=== PATIENT | male | born 1980 ===

== ENCOUNTER 2024-10-06 10:15 | Outpatient (RCR) | payer MEDICAID, SELFPAY | END 2024-12-25 11:54 | disposition home or self-care (01) | LOC: HO.WCC 10:15 | PROVIDERS: PCP Nurse Practitioner Family; Visit Provider Surgery | DX: E10.621 Type 1 diabetes mellitus with foot ulcer (principal); L97.522 Non-pressure chronic ulcer of other part of left foot with fat layer exposed; I10 Essential (primary) hypertension; E10.40 Type 1 diabetes mellitus with diabetic neuropathy, unspecified; F17.210 Nicotine dependence, cigarettes, uncomplicated; Z79.4 Long term (current) use of insulin; Z79.899 Other long term (current) drug therapy | CPT/HCPCS: 11042; 99204 ==

== ENCOUNTER 2024-10-17 18:33 | Inpatient (IN) | payer MEDICAID, SELFPAY ==
--- NOTE | ~2024-10-17 | MR_ITS ---
CLINICAL HISTORY: ?dry gangrene L great toe Pt motion artifact present for post magan images. Pt unabl e to remain still for rpt images. Best images possible obtained. MRI left foot without and with intravenous contrast Comparison: None Findings: Marrow edema in the 1st distal phalanx with cortical irregularity of the tuft concerning for osteomyelitis. There is surrounding soft tissue edema. No abscess though evaluation is somewhat limited by motion on the postcontrast images. No acute fracture or dislocation. Tendons and ligaments are intact. Impression: Findings concerning for osteomyelitis of the 1st distal tuft. This document has been electronically signed by: Rosetta Greene MD on 10/18/2024 18:20:52
--- NOTE | ~2024-10-17 | US_ITS ---
CLINICAL HISTORY: nonhealing ulkcer --- Additional Notes or Special Instructions: Please do bilateral art US with limited CONRAD. If indicated Bilateral lower extremity arterial duplex ultrasound Comparison: None . Findings: Triphasic flow noted throughout the bilateral lower extremities. No significant plaque noted on cross-sectional images. There is no significant velocity alteration demonstrated. Impression: No significant velocity-altering stenosis. Ankle-brachial index Comparison: None Findings: Right brachial artery 115 mmHg Right posterior tibial artery 135 mmHg Right dorsalis pedis artery 119 mmHg Left brachial artery 135 mmHg Left posterior tibial artery 136 mmHg Left dorsalis pedis artery 136 mmHg Impression: 1. Right CONRAD 1.0 2. Left CONRAD 1.0 This document has been electronically signed by: Praveen Bridges MD on 10/22/2024 20:05:45
--- NOTE | ~2024-10-17 | CT_ITS ---
CLINICAL HISTORY: ABD PAIN, VOMITING CT abdomen and pelvis with contrast Comparison: None Findings: There is minimal dependent atelectasis. There is a tiny calcified granuloma in the left lower lobe. There is a mildly hypodense lesion in the right lobe of the liver measuring 2 cm. Liver is otherwise unremarkable. The gallbladder, pancreas, spleen, adrenal glands, and kidneys are unremarkable. The appendix is normal. The remainder of the gastrointestinal tract is unremarkable. There is no free fluid or free air. The aorta is normal in diameter. There are no enlarged lymph nodes. The bladder is mildly distended. There are mild degenerative changes in the lumbar spine. There is no fracture or suspicious lytic or sclerotic lesion. IMPRESSION: 1. No acute abnormality in the abdomen or pelvis. 2. Indeterminate 2 cm lesion in the right lobe of the liver. This could be best evaluated with multiphasic contrast-enhanced MRI. This document has been electronically signed by: Dirk Meneses MD on 10/18/2024 04:47:55
--- NOTE | ~2024-10-17 | XR_ITS ---
CLINICAL HISTORY: <OBR.31.1><OBR.31.1.1>PRE MRI CHEST XRAY TO R O FOREIGN BODYPlease check prior CT i mages done 10/18 of the head </OBR.31.1.1><OBR.31.1.2> abdomen/pelvis to clear for MRI as well please .</OBR.31.1.2></OBR.31.1> 1 view chest x-ray Comparison: None Findings: No consolidation or effusion. Normal size heart. No acute fracture. Other than spinal fusion hardware, no metallic foreign body. IMPRESSION: No concerning metallic foreign body. This document has been electronically signed by: Joshua Sim MD on 10/18/2024 12:14:35
--- NOTE | ~2024-10-17 | CT_ITS ---
CLINICAL HISTORY: ALTERED MENTAL STATUS CT head without contrast Comparison: None Findings: There is no acute intracranial hemorrhage. Ventricles are of normal size and shape. No mass effect or midline shift is present. The garcia-white matter differentiation appears normal. There is generalized cerebral atrophy atypical for patient's age. The visualized portions of the orbits, paranasal sinuses, and mastoids are unremarkable. No fractures are identified. There is a small benign partially calcified right posterolateral scalp nodule likely a sebaceous cyst. IMPRESSION: 1. No acute intracranial abnormality. 2. Cerebral atrophy atypical for patient's age. This document has been electronically signed by: Dirk Meneses MD on 10/18/2024 04:38:42
[2024-10-17 18:43] VITALS: BP 129/74; PULSE 88; RESP 16; O2SAT 98
[2024-10-17 18:45] VITALS: TEMP 37.1
[2024-10-17 18:46] VITALS: BP 146/95; PULSE 100; O2SAT 99; BMI 27.5
--- NOTE | 2024-10-17 19:11 | ED_ITS ---
HPI - General Adult General Chief complaint: Seizure Stated complaint: seizure, no injuires Time Seen by Provider: 10/17/24 19:11 History of Present Illness ED Provider: Jossue PERRY narrative: The patient is a 44-year-old male with a history of poorly controlled type 1 diabetes. He also has a history of a significant seizure disorder. He lives at home with his parents. Apparently he had 2 seizures today. Family noticed this afternoon that his blood sugar was over 400. They checked this after his 1st seizure. At around 5:15 PM the family administered 12 units of subcutaneous Humalog because of the elevated blood sugar. The patient is subsequently had a 2nd seizure and it was at that point that the family called an ambulance. The patient has a history of prolonged abnormal behavior following seizures. The mother says that the pill dispenser the patient uses suggest that the patient may not have taken his regular medications earlier today. The mother otherwise can not be sure how compliant the patient has been with his medication regimen recently. The patient is anti epileptic regimen includes lacosamide 200 mg b.i.d., lamotrigine 75 mg b.i.d., and oxcarbazepine 600 mg b.i.d.. According to records from [facility] the patient experiences severe agitation after administration of levetiracetam. The patient's mother says that the patient drinks a fair amount of beer and she says she would describe him as an alcoholic. Related Data Allergies Allergy/AdvReac Type Severity Reaction Status Date / Time chlordiazepoxide Allergy Unknown Unknown Unverified 10/18/24 00:44 [From Librium] ibuprofen Allergy Unknown Unknown Unverified 10/18/24 00:44 Penicillins Allergy Unknown Unknown Unverified 10/18/24 00:44 levetiracetam [From Keppra] AdvReac Severe agitation Verified 10/17/24 23:40 Review of Systems 2 Review of Systems: Yes Unobtainable due to mental status PMFSH Past Medical History Medical History (Updated 10/18/24 @ 01:10 by Tomasz Marcum MD) Wernicke encephalopathy Alcohol withdrawal seizure Type 1 diabetes Alcohol dependence Seizure disorder HTN (hypertension) Social History Social History Smoked in Last 30 Days: No Use of substances other than those prescribed or required for medical reasons: No Advance Directives: No Advance Directives Information Provided: No Physical Exam ED Vital Signs: Vital Signs - 24 hr 10/17/24 18:43 10/17/24 18:45 10/17/24 20:20 Temperature 98.7 F Pulse Rate 88 81 Respiratory Rate 16 12 Blood Pressure 129/74 120/67 Pulse Oximetry 98 Oxygen Delivery Method Room Air 10/17/24 21:43 10/17/24 23:23 Temperature Pulse Rate 84 Respiratory Rate 20 16 Blood Pressure 121/70 Pulse Oximetry 97 Oxygen Delivery Method Room Air BMI result Body Mass Index 27.5 Const Other: The patient is an unkempt, chronically ill-appearing 44-year-old male who was agitated and seemed confused. HENMT Other: No facial asymmetry. Mucous membranes moist. Airway clear. Eyes General: appearance normal, both eyes and all related structures Conjunctivae: conjunctivae normal Pupils: Equal, round and reactive pupils present EOM: EOMs intact bilaterally Neck Neck: Yes normal visual inspection, Yes full ROM, Yes no lymphadenopathy and Yes no JVD Resp Effort & Inspection: normal respiratory effort Auscultation: clear to auscultation bilaterally Cardio Rate: regular rate Rhythm: regular rhythm Heart sounds: S1 normal heart sound present and S2 normal heart sound present GI Other: The abdomen was soft and seems nontender. Skin Other: Skin is pale and dry. There is an area of dry necrosis at the tip of the left great toe. Neuro Other: The patient was awake but confused and agitated. He had no obvious cranial nerve deficit. He seems to move his extremities symmetrically. The patient seems encephalopathic but without definite focal finding. Cranial nerves: Yes Equal, round and reactive pupils present Extrem Other: No deformities to the extremities. The left great toe has an area of dry necrosis at the tip. No sign of associated cellulitis. No peripheral edema. Medications Administered Generic Name Dose Route Start Last Admin Trade Name Freq PRN Reason Stop Dose Admin Cefepime HCl 2 gm in 50 mls @ 100 mls/hr 10/18/24 01:00 10/18/24 01:24 Maxipime IV 100 mls/hr Q8H MAYUR Administration Sodium Chloride 3 ml 10/18/24 00:00 10/18/24 01:00 0.9 % Sodium Chloride Flush 3 Ml Syringe IVFLUSH 3 ml QSHIFT MAYUR Administration Discontinued Medications Generic Name Dose Route Start Last Admin Trade Name Freq PRN Reason Stop Dose Admin Diazepam 5 mg 10/17/24 19:16 10/17/24 19:18 Diazepam 10 Mg/2 Ml Cartridge IVPUSH 10/17/24 19:17 5 mg STAT STA Administration Diazepam 5 mg 10/17/24 19:34 10/17/24 19:38 Diazepam 10 Mg/2 Ml Cartridge IVPUSH 10/17/24 19:35 5 mg STAT STA Administration Diazepam 10 mg 10/17/24 20:03 10/17/24 20:09 Diazepam 10 Mg/2 Ml Cartridge IVPUSH 10/17/24 20:04 10 mg STAT STA Administration Diazepam 10 mg 10/17/24 20:53 10/17/24 21:00 Diazepam 10 Mg/2 Ml Cartridge IM 10/17/24 20:54 10 mg STAT STA Administration Lactated Ringer's 1,000 mls @ 999 mls/hr 10/17/24 21:00 10/17/24 21:54 Lr IV 10/17/24 22:00 Infused .Q1H1M MAYUR Infusion Levetiracetam 1,000 mg in 100 mls @ 400 mls/hr 10/17/24 21:51 10/17/24 22:21 Keppra IV 10/17/24 22:05 Not Given ONCE ONE Thiamine HCl 400 mg/ Sodium 104 mls @ 208 mls/hr 10/18/24 00:19 10/18/24 01:02 Chloride IV 10/18/24 00:48 208 mls/hr ONCE ONE Administration Insulin Glargine 8 unit 10/17/24 21:59 10/17/24 22:17 Insulin Glargine,Hum.Rec.Anlog 100 Unit/Ml 10 Ml Vial SUBCUT 10/17/24 22:00 8 unit ONCE ONE Administration Insulin Human Regular 10 unit 10/17/24 20:25 10/17/24 20:51 Insulin Regular, Human 100 Unit/Ml 10 Ml Vial IVPUSH 10/17/24 20:26 10 unit ONCE ONE Administration Lacosamide 200 mg 10/17/24 22:21 10/17/24 23:42 Lacosamide 100 Mg Tablet PO 10/17/24 22:22 200 mg ONCE ONE Administration Lamotrigine 75 mg 10/17/24 22:35 10/17/24 23:43 Lamotrigine 25 Mg Tablet PO 10/17/24 22:36 75 mg ONCE ONE Administration Oxcarbazepine 600 mg 10/17/24 22:21 10/17/24 23:42 Oxcarbazepine 300 Mg Tablet PO 10/17/24 22:22 600 mg ONCE ONE Administration Phenobarbital Sodium 260 mg 10/18/24 00:45 10/18/24 00:57 Phenobarbital Sodium 130 Mg/Ml Im Once IM 10/18/24 00:46 260 mg ONCE ONE Administration Medical Decision Making Medical Decision Making [facility] Narrative: The patient is a 44-year-old male who has a type 1 diabetic, has a seizure disorder, and is an alcoholic. He lives at home with his parents. Today he presents to the emergency room after having had 2 seizures at home. He arrived agitated and encephalopathic. I have seen this patient before many times at [facility]. The patient has a history of significantly agitated behavior following his seizures. I believe he has essentially prolonged postictal episodes of encephalopathy associated with agitation. The patient was given IV diazepam. According to records from [facility] Keppra exacerbates his agitation and so Keppra was not given. His regular antiepileptic medications are oxcarbazepine, lamotrigine, and lacosamide. The patient was hyperglycemic. It was my impression that although the patient was hyperglycemic he was probably not in diabetic ketoacidosis. His initial labs show a carbon dioxide of 16 and an anion gap of 21. His initial pH on a VBG was 7.34 with a pCO2 of 32. He has a some ketones in his urine. Beta hydroxybutyrate was 0.52. The patient was given IV fluids and IV insulin in addition to IV diazepam initially. The patient was observed. He became less agitated. Repeat labs 3 hours after his initial hours showed the basic metabolic panel with a carbon dioxide of 22 and an anion gap of 14. His blood sugar had improved significantly from 417-149. I feel this confirms the absence of diabetic ketoacidosis. I spoke with his mother on the phone. She confirmed that he had had 2 seizures today at home. She says that the seizures were witnessed and that he had not sustained any injuries as a result of the seizures. She confirmed that the patient drinks beer very regularly and confirms that he is probably an alcoholic. After I have helped the patient was considerably less agitated we assessed the patient as sufficiently calm to take oral medications and he was given his oxcarbazepine, lacosamide, and lamotrigine. He was also given a dose of IM phenobarbital. At this point I think the patient is stable enough for admission to telemetry. I contacted the hospitalist and the patient was admitted. Lab Data 10/17/24 19:33 10/17/24 22:42 Labs: Lab Results 10/17/24 10/17/24 10/17/24 Range/Units 18:41 19:33 19:39 WBC 12.4 H (4.8-10.8) X10*3/uL RBC 4.72 (4.60-5.80) X10*6/uL Hgb 13.0 L (14.0-18.0) g/dl Hct 38.6 L (42.0-52.0) % MCV 81.8 (80.0-98.0) fL MCH 27.5 (27.0-33.0) pg MCHC 33.7 (31.0-36.0) g/dl RDW 16.3 H (11.0-16.0) % Plt Count 300 (160-400) X10*3/uL MPV 9.5 (9.4-12.4) fL Immature Gran % (Auto) 0.4 (0.0-0.4) % Neut % (Auto) 91.2 H (45-73) % Lymph % (Auto) 3.7 L (20-40) % [place] % (Auto) 4.4 (2-11) % Eos % (Auto) 0.0 (0-4) % Baso % (Auto) 0.3 (0-2) % Lymph # (Auto) 0.5 L (1.2-4.9) X10*3/uL [place]ford # (Auto) 0.6 (0.1-1.2) X10*3/uL Eos # (Auto) 0.0 (0.0-0.4) X10*3/uL Baso # (Auto) 0.0 (0.0-0.2) X10*3/uL Abs Immat Gran (auto) 0.05 H (0.00-0.03) X10*3/uL Absolute Neuts (auto) 11.3 H (2.0-8.3) x10*3/uL Absolute Nucleated RBC 0.000 (0.0-0.012) X10*3/uL Nucleated RBC % (auto) 0.0 (0.0-0.2) /100WBC Smear Tech's Comments VERIFIED ESR 2 (0-15) MM/HR PT 12.3 (10.9-12.4) SEC INR 1.1 (0.9-1.1) VBG pH 7.34 (7.32-7.43) VBG pCO2 32 mmHg VBG pO2 69 mmHg VBG HCO3 17 L (22-26) mmol/L VBG O2 Saturation 92.0 % VBG Base Excess -6.8 mmol/L Sodium 141 (135-145) mmol/L Potassium 4.2 (3.3-5.1) mmol/L Chloride 108 (96-108) mmol/L Carbon Dioxide 16 L (22-29) mmol/L Anion Gap 21 H (12-20) BUN 12 (9-16) mg/dL Creatinine 1.30 (0.5-1.4) mg/dL Estim Creat Clear Calc 70.1 Estimated GFR 60 POC Glucose 417 H* (60-115) mg/dL Random Glucose 364 H* (60-115) mg/dL Calcium 9.0 (8.4-10.2) mg/dL Magnesium 2.7 H (1.6-2.6) mg/dL Total Bilirubin 0.3 (0.0-1.0) mg/dL Direct Bilirubin 0.1 (0.0-0.5) mg/dL AST 20 (5-37) U/L ALT 15 (0-40) U/L Alkaline Phosphatase 85 (39-117) U/L Troponin I High Sens 5.7 (<3.5-35.0) ng/L C-Reactive Protein 0.13 (< or = 0.50) mg/dL Total Protein 7.1 (6.5-8.0) g/dL Albumin 4.3 (3.5-5.0) g/dL Lipase 4 L (8-78) U/L Beta-Hydroxybutyrate 0.52 H (0.02-0.27) mmol/L Urine Color Yellow Urine Appearance Clear Urine pH 5.5 (5.0-9.0) Ur Specific Enterprise 1.025 (1.005-1.025) Urine Protein Negative (Neg-Trace) mg/dL Urine Glucose (UA) >=1000 H (Negative) mg/dL Urine Ketones 80 (Negative) mg/dL Urine Blood Negative (Negative) Urine Nitrite Negative (Negative) Ur Leukocyte Esterase Negative (Negative) Urine RBC 0-2 (0-2) /HPF Urine WBC 0-5 (0-5) /HPF Ur Squamous Epith Cells 0-2 (0-2) /HPF Urine Bacteria None Seen (None Seen) Hyaline Casts 0-2 (0-2) /LPF Urine Opiates Screen Not Detected (Not Detect) Ur Buprenorphine Scrn Not Detected (Not Detect) ng/mL Ur Oxycodone Screen Not Detected (Not Detect) ng/mL Urine Methadone Screen Not Detected (Not Detect) ng/mL Urine Fentanyl Screen Not Detected (Not Detect) Ur Barbiturates Screen Not Detected (Not Detect) Ur Phencyclidine Scrn Not Detected (Not Detect) Ur Amphetamines Screen Not Detected (Not Detect) U Benzodiazepines Scrn Not Detected (Not Detect) Urine Cocaine Screen Not Detected (Not Detect) U Marijuana (THC) Screen Not Detected (Not Detect) Ethyl Alcohol < 10 mg/dL Influenza Type A (PCR) (Negative) Influenza Type B (PCR) (Negative) RSV RNA Qual (PCR) (Negative) SARS-CoV-2 RNA (RT-PCR) (Negative) 10/17/24 10/17/24 10/17/24 Range/Units 20:46 21:43 22:42 WBC (4.8-10.8) X10*3/uL RBC (4.60-5.80) X10*6/uL Hgb (14.0-18.0) g/dl Hct (42.0-52.0) % MCV (80.0-98.0) fL MCH (27.0-33.0) pg MCHC (31.0-36.0) g/dl RDW (11.0-16.0) % Plt Count (160-400) X10*3/uL MPV (9.4-12.4) fL Immature Gran % (Auto) (0.0-0.4) % Neut % (Auto) (45-73) % Lymph % (Auto) (20-40) % Radford % (Auto) (2-11) % Eos % (Auto) (0-4) % Baso % (Auto) (0-2) % Lymph # (Auto) (1.2-4.9) X10*3/uL [place] # (Auto) (0.1-1.2) X10*3/uL Eos # (Auto) (0.0-0.4) X10*3/uL Baso # (Auto) (0.0-0.2) X10*3/uL Abs Immat Gran (auto) (0.00-0.03) X10*3/uL Absolute Neuts (auto) (2.0-8.3) x10*3/uL Absolute Nucleated RBC (0.0-0.012) X10*3/uL Nucleated RBC % (auto) (0.0-0.2) /100WBC Smear Tech's Comments ESR (0-15) MM/HR PT (10.9-12.4) SEC INR (0.9-1.1) VBG pH (7.32-7.43) VBG pCO2 mmHg VBG pO2 mmHg VBG HCO3 (22-26) mmol/L VBG O2 Saturation % VBG Base Excess mmol/L Sodium 143 (135-145) mmol/L Potassium 4.0 (3.3-5.1) mmol/L Chloride 111 H (96-108) mmol/L Carbon Dioxide 22 (22-29) mmol/L Anion Gap 14 (12-20) BUN 10 (9-16) mg/dL Creatinine 0.90 (0.5-1.4) mg/dL Estim Creat Clear Calc 101.3 Estimated GFR > 60 POC Glucose 150 H (60-115) mg/dL Random Glucose 149 H (60-115) mg/dL Calcium 8.8 (8.4-10.2) mg/dL Magnesium (1.6-2.6) mg/dL Total Bilirubin (0.0-1.0) mg/dL Direct Bilirubin (0.0-0.5) mg/dL AST (5-37) U/L ALT (0-40) U/L Alkaline Phosphatase (39-117) U/L Troponin I High Sens (<3.5-35.0) ng/L C-Reactive Protein (< or = 0.50) mg/dL Total Protein (6.5-8.0) g/dL Albumin (3.5-5.0) g/dL Lipase (8-78) U/L Beta-Hydroxybutyrate 1.42 H (0.02-0.27) mmol/L Urine Color Urine Appearance Urine pH (5.0-9.0) Ur Specific Enterprise (1.005-1.025) Urine Protein (Neg-Trace) mg/dL Urine Glucose (UA) (Negative) mg/dL Urine Ketones (Negative) mg/dL Urine Blood (Negative) Urine Nitrite (Negative) Ur Leukocyte Esterase (Negative) Urine RBC (0-2) /HPF Urine WBC (0-5) /HPF Ur Squamous Epith Cells (0-2) /HPF Urine Bacteria (None Seen) Hyaline Casts (0-2) /LPF Urine Opiates Screen (Not Detect) Ur Buprenorphine Scrn (Not Detect) ng/mL Ur Oxycodone Screen (Not Detect) ng/mL Urine Methadone Screen (Not Detect) ng/mL Urine Fentanyl Screen (Not Detect) Ur Barbiturates Screen (Not Detect) Ur Phencyclidine Scrn (Not Detect) Ur Amphetamines Screen (Not Detect) U Benzodiazepines Scrn (Not Detect) Urine Cocaine Screen (Not Detect) U Marijuana (THC) Screen (Not Detect) Ethyl Alcohol mg/dL Influenza Type A (PCR) NEGATIVE (Negative) Influenza Type B (PCR) NEGATIVE (Negative) RSV RNA Qual (PCR) NEGATIVE (Negative) SARS-CoV-2 RNA (RT-PCR) NEGATIVE (Negative) 10/17/24 Range/Units 22:47 WBC (4.8-10.8) X10*3/uL RBC (4.60-5.80) X10*6/uL Hgb (14.0-18.0) g/dl Hct (42.0-52.0) % MCV (80.0-98.0) fL MCH (27.0-33.0) pg MCHC (31.0-36.0) g/dl RDW (11.0-16.0) % Plt Count (160-400) X10*3/uL MPV (9.4-12.4) fL Immature Gran % (Auto) (0.0-0.4) % Neut % (Auto) (45-73) % Lymph % (Auto) (20-40) % [place] % (Auto) (2-11) % Eos % (Auto) (0-4) % Baso % (Auto) (0-2) % Lymph # (Auto) (1.2-4.9) X10*3/uL [place] # (Auto) (0.1-1.2) X10*3/uL Eos # (Auto) (0.0-0.4) X10*3/uL Baso # (Auto) (0.0-0.2) X10*3/uL Abs Immat Gran (auto) (0.00-0.03) X10*3/uL Absolute Neuts (auto) (2.0-8.3) x10*3/uL Absolute Nucleated RBC (0.0-0.012) X10*3/uL Nucleated RBC % (auto) (0.0-0.2) /100WBC Smear Tech's Comments ESR (0-15) MM/HR PT (10.9-12.4) SEC INR (0.9-1.1) VBG pH 7.44 H (7.32-7.43) VBG pCO2 36 mmHg VBG pO2 77 mmHg VBG HCO3 25 (22-26) mmol/L VBG O2 Saturation 97.0 % VBG Base Excess 1.5 mmol/L Sodium (135-145) mmol/L Potassium (3.3-5.1) mmol/L Chloride (96-108) mmol/L Carbon Dioxide (22-29) mmol/L Anion Gap (12-20) BUN (9-16) mg/dL Creatinine (0.5-1.4) mg/dL Estim Creat Clear Calc Estimated GFR POC Glucose (60-115) mg/dL Random Glucose (60-115) mg/dL Calcium (8.4-10.2) mg/dL Magnesium (1.6-2.6) mg/dL Total Bilirubin (0.0-1.0) mg/dL Direct Bilirubin (0.0-0.5) mg/dL AST (5-37) U/L ALT (0-40) U/L Alkaline Phosphatase (39-117) U/L Troponin I High Sens (<3.5-35.0) ng/L C-Reactive Protein (< or = 0.50) mg/dL Total Protein (6.5-8.0) g/dL Albumin (3.5-5.0) g/dL Lipase (8-78) U/L Beta-Hydroxybutyrate (0.02-0.27) mmol/L Urine Color Urine Appearance Urine pH (5.0-9.0) Ur Specific Enterprise (1.005-1.025) Urine Protein (Neg-Trace) mg/dL Urine Glucose (UA) (Negative) mg/dL Urine Ketones (Negative) mg/dL Urine Blood (Negative) Urine Nitrite (Negative) Ur Leukocyte Esterase (Negative) Urine RBC (0-2) /HPF Urine WBC (0-5) /HPF Ur Squamous Epith Cells (0-2) /HPF Urine Bacteria (None Seen) Hyaline Casts (0-2) /LPF Urine Opiates Screen (Not Detect) Ur Buprenorphine Scrn (Not Detect) ng/mL Ur Oxycodone Screen (Not Detect) ng/mL Urine Methadone Screen (Not Detect) ng/mL Urine Fentanyl Screen (Not Detect) Ur Barbiturates Screen (Not Detect) Ur Phencyclidine Scrn (Not Detect) Ur Amphetamines Screen (Not Detect) U Benzodiazepines Scrn (Not Detect) Urine Cocaine Screen (Not Detect) U Marijuana (THC) Screen (Not Detect) Ethyl Alcohol mg/dL Influenza Type A (PCR) (Negative) Influenza Type B (PCR) (Negative) RSV RNA Qual (PCR) (Negative) SARS-CoV-2 RNA (RT-PCR) (Negative) Critical Care Time Critical Care Time Critical Care Time: Yes Total Critical Care Time: 60 Attestation: The patient was critically ill with a high probability of imminent or life- threatening deterioration. ?I spent greater than 30 minutes of discontinuous time evaluating the patient, delivering critical care at the bedside, discussing evaluating data with consultants. ?Critical care time does not include time spent performing separately billable procedures or teaching. ?Time spent performing critical care with 60 minutes. Discharge Plan Discharge Clinical Impression: Seizure, Type 1 diabetes, Acute metabolic encephalopathy, Alcoholism Patient Disposition: Admitted As Inpatient
--- NOTE | 2024-10-17 19:17 | ECG_ITS ---
Test Reason : seizure Blood Pressure : */* mmHG Vent. Rate : 82 BPM Atrial Rate : 82 BPM P-R Int : 170 ms QRS Dur : 94 ms QT Int : 372 ms P-R-T Axes : 85 -18 58 degrees QTcB Int : 434 ms Normal sinus rhythm Normal ECG No previous ECGs available Referred By: Tomasz Marcum Electronically Signed By: Darryl Degroot
[2024-10-17] MEDS: diazePAM 10 MG/2 ML CARTRIDGE 5 MG IVPUSH ×2 (19:18→19:38)
[2024-10-17 19:20] LABS: Glucose, Whole Blood 417 mg/dL (60-115)
[2024-10-17 19:39] LABS: Basophils Percent Auto 0.3 % (0-2); Hematocrit 38.6 % (42.0-52.0); Imm Gran Abs Auto 0.05 X10*3/uL (0.00-0.03); Imm Gran Pct Auto 0.4 % (0.0-0.4); Lymphocytes Absolute Auto 0.5 X10*3/uL (1.2-4.9); Lymphocytes Percent Auto 3.7 % (20-40); MANUAL DIFF FLAG SCAN; Mean Corpuscular HGB Conc 33.7 g/dl (31.0-36.0); Mean Corpuscular Hemoglobin 27.5 pg (27.0-33.0); Mean Corpuscular Volume 81.8 fL (80.0-98.0); Mean Platelet Volume 9.5 fL (9.4-12.4); Monocytes Absolute Auto 0.6 X10*3/uL (0.1-1.2); Monocytes Percent Auto 4.4 % (2-11); Neutrophils Absolute Auto 11.3 x10*3/uL (2.0-8.3); Neutrophils Percent Auto 91.2 % (45-73); Platelet Count 300 X10*3/uL (160-400); Red Blood Count 4.72 X10*6/uL (4.60-5.80); Red Cell Distribution Width 16.3 % (11.0-16.0); SCAN SMEAR FLAG 1; White Blood Count 12.4 X10*3/uL (4.8-10.8)
[2024-10-17 19:40] LABS: Appearance Urine Clear; Color Urine Yellow; Glucose Urine UA >=1000 mg/dL (Negative); Leukocyte Esterase Urine Negative (Negative); Nitrite Urine Negative (Negative); PH 5.5 (5.0-9.0); Specific Gravity - Urine 1.025 (1.005-1.025); UMIC TRIGGER UACC YES; Urine Blood Negative (Negative); Urine Ketones 80 mg/dL (Negative); Urine Protein Negative (Neg-Trace)
[2024-10-17 19:43] LABS: VBG Base Excess -6.8 mmol/L; VBG HCO3 17 mmol/L (22-26); VBG pCO2 32 mmHg; VBG pH 7.34 (7.32-7.43); VBG pO2 69 mmHg
[2024-10-17 19:44] LABS: INTERNATIONAL NORM RATIO 1.1 (0.9-1.1); Prothrombin Time 12.3 SEC (10.9-12.4); Venous Blood Gas Refer to POC result
[2024-10-17 19:45] LABS: Bacteria Urine None Seen (None Seen); Hyaline Casts Urine 0-2 /LPF (0-2); RBC Urine 0-2 /HPF (0-2); Squamous Epithelial Cell Urine 0-2 /HPF (0-2); WBC Urine 0-5 /HPF (0-5)
[2024-10-17 19:49] LABS: Amphetamine Screen Urine Not Detected (Not Detect); Barbiturates, Urine Not Detected (Not Detect); Benzodiazepines Screen Urine Not Detected (Not Detect); Buprenorphine Scr Not Detected (Not Detect); Cannabinoid Screen Urine Not Detected (Not Detect); Cocaine Screen Urine Not Detected (Not Detect); Fentanyl, urine Not Detected (Not Detect); Methadone Screen, Urine Not Detected (Not Detect); Opiate Screen Urine Not Detected (Not Detect); Oxycodone Screen Urine Not Detected (Not Detect); Phencyclidine Screen Urine Not Detected (Not Detect)
[2024-10-17 19:57] LABS: SLIDE REVIEW VERIFIED
[2024-10-17 20:00] LABS: Alanine Aminotransferase 15 U/L (0-40); Albumin Level 4.3 g/dL (3.5-5.0); Alkaline Phosphatase 85 U/L (39-117); Anion Gap 21 (12-20); Aspartate Amino Transferase 20 U/L (5-37); Bilirubin Direct 0.1 mg/dL (0.0-0.5); Bilirubin Total 0.3 mg/dL (0.0-1.0); Blood Urea Nitrogen 12 mg/dL (9-16); C Reactive Protein 0.13 mg/dL (< or = 0.50); Carbon Dioxide 16 mmol/L (22-29); Chloride 108 mmol/L (96-108); Creatinine Clr Calc Pharmacy 70.1; Estimated Glomerular Filt Rate 60; Ethanol < 10 mg/dL; Glucose Random 364 mg/dL (60-115); Lipase 4 U/L (8-78); Magnesium 2.7 mg/dL (1.6-2.6); Potassium 4.2 mmol/L (3.3-5.1); Sodium 141 mmol/L (135-145); Total Protein 7.1 g/dL (6.5-8.0)
[2024-10-17 20:02] LABS: Troponin-I High Sensitivity 5.7 ng/L (<3.5-35.0)
[2024-10-17] MEDS: diazePAM 10 MG/2 ML CARTRIDGE IVPUSH (20:09)
[2024-10-17 20:20] VITALS: BP 120/67; PULSE 81; RESP 12
--- NOTE | 2024-10-17 20:22 | MHC.EDTECH ---
This PCT attempted to obtain EKG as ordered, unable at this time due to patient pulling wires off.
[2024-10-17] MEDS: Insulin Regular, Human 100 UNIT/ML 10 ML VIAL 10 UNIT IVPUSH (20:51)
[2024-10-17] MEDS: diazePAM 10 MG/2 ML CARTRIDGE IM (21:00)
[2024-10-17] MEDS: Lactated Ringers 1,000 ML 999 ML IV (21:01)
[2024-10-17 21:05] LABS: Beta-Hydroxybutyrate 0.52 mmol/L (0.02-0.27)
[2024-10-17 21:26] LABS: Influenza A PCR NEGATIVE (Negative); Influenza B PCR NEGATIVE (Negative); Resp Syncy Virus RNA Qual PCR NEGATIVE (Negative); SARS COV2 PCR INHOUSE NEGATIVE (Negative)
[2024-10-17 21:43] VITALS: BP 121/70; PULSE 84; RESP 20; O2SAT 97
[2024-10-17 21:47] LABS: Glucose, Whole Blood 150 mg/dL (60-115)
[2024-10-17] MEDS: Insulin Glargine,Hum.rec.anlog 100 UNIT/ML 10 ML VIAL 8 UNIT SUBCUT (22:17)
--- NOTE | 2024-10-17 22:34 | PC.NURSE ---
Per , okay to give pt. medication PO once capable.
[2024-10-17 22:51] LABS: VBG Base Excess 1.5 mmol/L; VBG HCO3 25 mmol/L (22-26); VBG pCO2 36 mmHg; VBG pH 7.44 (7.32-7.43); VBG pO2 77 mmHg
[2024-10-17 22:52] LABS: Venous Blood Gas Refer to POC result
[2024-10-17 23:09] LABS: Anion Gap 14 (12-20); Blood Urea Nitrogen 10 mg/dL (9-16); Calcium 8.8 mg/dL (8.4-10.2); Carbon Dioxide 22 mmol/L (22-29); Chloride 111 mmol/L (96-108); Creatinine Clr Calc Pharmacy 101.3; Estimated Glomerular Filt Rate > 60; Glucose Random 149 mg/dL (60-115); Sodium 143 mmol/L (135-145)
--- NOTE | 2024-10-17 23:10 | PC.NURSE ---
Report given to JUAN R Cerrato.
[2024-10-17 23:23] VITALS: RESP 16
[2024-10-17] MEDS: OXcarbazepine 300 MG TABLET 600 MG PO (23:42)
[2024-10-17] MEDS: Lacosamide 100 MG TABLET 200 MG PO (23:42)
[2024-10-17] MEDS: lamoTRIgine 25 MG TABLET 75 MG PO (23:43)
--- NOTE | 2024-10-17 23:45 | PC.NURSE ---
This RN assumed pt care @ 2300. Pt restless, but alert x2. Pt medicated per mar Plan of care ongoing.
[2024-10-17 23:56] LABS: Beta-Hydroxybutyrate 1.42 mmol/L (0.02-0.27)
--- NOTE | 2024-10-18 00:01 | PC.NURSE ---
Pt meeting with PA (Hospitalist).
--- NOTE | 2024-10-18 00:29 | PM.IMHP ---
History of Present Illness Date of Service: 10/17/24 Attending physician on admission: Sonido Mehta Chief Complaint: seizure pt is a 44 yo male with a pmhx significant for alcohol use disorder with a hx of etoh withdrawal and wernicke's, T2DM with recurrent DKA, HTN, and seizure disorder, who presented to the ED today due to 2 seizures earlier, witnessed by the pt's mother. they reported that his blood sugar was elevated when the pt had his first seizure and they gave him insulin, and after the 2nd seizure they brought him in due to prolonged AMS afterwards. they admit that he has been drinking eoth, amount known, possibly a few 6 packs/week , but state they recently moved and he has not been able to get to the store to get alcohol as frequently and he has only been drinking beer, previously vodka. He was hospitalized 2x recently at [facility] for DKA and L foot wound, managed by wound care currently. the patient has a history of medication noncompliance, and his mother is unaware if he has been skipping his medications. he also has a history of severe agitation and aggression postictally, exacerbated by keppra. upon arrival he was restrained, but able to transfer to the bed safely. POC was 405 for EMS. Review of Systems Review of Systems: Yes Unobtainable due to mental condition [facility] Medical History (Updated 10/18/24 @ 01:10 by Tomasz Marcum MD) Wernicke encephalopathy Alcohol withdrawal seizure Type 1 diabetes Alcohol dependence Seizure disorder HTN (hypertension) Functional capacity: independent ambulation Social History Smoked in Last 30 Days: No Use of substances other than those prescribed or required for medical reasons: No Advance Directives: No Advance Directives Information Provided: No Narrative: drinks daily per pt's mother, unsure amount Meds Allergies Allergy/AdvReac Type Severity Reaction Status Date / Time chlordiazepoxide Allergy Unknown Unknown Unverified 10/18/24 00:44 [From Librium] ibuprofen Allergy Unknown Unknown Unverified 10/18/24 00:44 Penicillins Allergy Unknown Unknown Unverified 10/18/24 00:44 levetiracetam [From Keppra] AdvReac Severe agitation Verified 10/17/24 23:40 Active Medications: Current Medications Acetaminophen (Acetaminophen 325 Mg Tablet) 975 mg PO Q6H PRN PRN Reason: Pain, Mild 1-3,fever,headache Calcium Carbonate (Calcium Carbonate 750 Mg Tab.Chew) 750 mg PO Q4H PRN PRN Reason: Heartburn Dextrose (Dextrose 50 % 25 Gm/50 Ml Syringe) 25 gm IVPUSH Q15M PRN; Protocol PRN Reason: per Hypoglycemia Standing Ord. Enoxaparin Sodium (Enoxaparin Sodium 40 Mg/0.4 Ml Syringe) 40 mg SUBCUT Q24H [facility] Folic Acid (Folic Acid 1 Mg Tablet) 1 mg PO DAILY [facility] Stop: 10/21/24 08:59 Glucose (Glucose Gel 15 Gm Gel..Gram.) 15 gm PO Q15M PRN; Protocol PRN Reason: per Hypoglycemia Standing Ord. Thiamine HCl 400 mg/ Sodium (Chloride) 104 mls @ 208 mls/hr IV ONCE ONE Stop: 10/18/24 00:48 Piperacillin Sod/Tazobactam (Sod 3.375 gm/ Sodium Chloride) 50 mls @ 100 mls/hr IV Q6H [facility] Insulin Glargine (Insulin Glargine,Hum.Rec.Anlog 100 Unit/Ml 10 Ml Vial) 8 unit SUBCUT BEDTIME [facility] Insulin Human Lispro (Insulin Lispro 100 Unit/Ml 3 Ml Vial) 0 unit SUBCUT QIDACHS [facility]; Protocol Magnesium Hydroxide (Milk Of Magnesia 30 Ml Oral.Susp) 30 ml PO DAILY PRN PRN Reason: Constipation Melatonin (Melatonin 3 Mg Tablet) 6 mg PO BEDTIME PRN PRN Reason: Insomnia Morphine Sulfate (Morphine Sulfate 4 Mg/Ml Cartridge) 2 mg IVPUSH Q4H PRN; Protocol PRN Reason: Pain, Severe (Pain Scale 7-10) Multivitamins/Vitamin C (Multivitamin Tablet) 1 tab PO DAILY [facility] Stop: 10/21/24 08:59 Ondansetron HCl (Ondansetron Hcl 4 Mg/2 Ml Vial) 4 mg IVPUSH Q8H PRN PRN Reason: Nausea and Vomiting Oxycodone HCl (Oxycodone Hcl Immed Release 5 Mg Tablet) 5 mg PO Q6H PRN PRN Reason: Pain, Moderate(Pain Scale 4-6) Pharmacy Consult (Consult Rx Etoh Phenob Im/Po) 1 each MISCELLANE ONCE PRN; Protocol PRN Reason: Consult order Pharmacy Consult (Consult Rx Vancomycin Dosing) 1 each MISCELLANE DAILY PRN PRN Reason: Consult order Sodium Chloride (0.9 % Sodium Chloride Flush 3 Ml Syringe) 3 ml IVFLUSH QSHIFT [facility] Thiamine HCl (Thiamine Hcl 100 Mg Tablet) 100 mg PO DAILY [facility] Stop: 10/21/24 08:59 Physical Exam Vital Signs and Narrative: Vital Signs: Last Vital Signs Temp 98.7 F 10/17/24 18:45 Pulse 84 10/17/24 21:43 Resp 16 10/17/24 23:23 BP 121/70 10/17/24 21:43 Pulse Ox 97 10/17/24 21:43 O2 Del Method Room Air 10/17/24 21:43 BMI result Body Mass Index 27.5 General: Alert, oriented to person but not place or time. no acute distress, rolling in bed Resp: CTA bilaterally CVS: S1, S2, RRR GI: +BS, NT, no distention Skin: Warm, dry. eschar L great toe, no foul odor, suspicious for dry gangrene, some surrounding erythema, no purulent drainage Neuro: Cranial nerves II-XII grossly intact bilaterally. Motor grossly intact bilaterally Extremities: No LE edema Psych: Appropriate affect Results Labs 10/17/24 19:33 10/17/24 22:42 Labs: Laboratory Results - last 24 hr 10/17/24 10/17/24 10/17/24 18:41 19:33 19:39 MCV 81.8 MCH 27.5 MCHC 33.7 RDW 16.3 H Plt Count 300 MPV 9.5 Immature Gran % (Auto) 0.4 Neut % (Auto) 91.2 H Lymph % (Auto) 3.7 L [place] % (Auto) 4.4 Eos % (Auto) 0.0 Baso % (Auto) 0.3 Lymph # (Auto) 0.5 L [place] # (Auto) 0.6 Eos # (Auto) 0.0 Baso # (Auto) 0.0 Abs Immat Gran (auto) 0.05 H Absolute Neuts (auto) 11.3 H Absolute Nucleated RBC 0.000 Nucleated RBC % (auto) 0.0 Smear Tech's Comments VERIFIED PT 12.3 INR 1.1 VBG pH 7.34 VBG pCO2 32 VBG pO2 69 VBG HCO3 17 L VBG O2 Saturation 92.0 VBG Base Excess -6.8 Anion Gap 21 H Estim Creat Clear Calc 70.1 Estimated GFR 60 POC Glucose 417 H* Random Glucose 364 H* Calcium 9.0 Magnesium 2.7 H Total Bilirubin 0.3 Direct Bilirubin 0.1 AST 20 ALT 15 Alkaline Phosphatase 85 C-Reactive Protein 0.13 Total Protein 7.1 Albumin 4.3 Lipase 4 L Beta-Hydroxybutyrate 0.52 H Urine Color Yellow Urine Appearance Clear Urine pH 5.5 Ur Specific [place] 1.025 Urine Protein Negative Urine Glucose (UA) >=1000 H Urine Ketones 80 Urine Blood Negative Urine Nitrite Negative Ur Leukocyte Esterase Negative Urine RBC 0-2 Urine WBC 0-5 Ur Squamous Epith Cells 0-2 Urine Bacteria None Seen Hyaline Casts 0-2 Urine Opiates Screen Not Detected Ur Buprenorphine Scrn Not Detected Ur Oxycodone Screen Not Detected Urine Methadone Screen Not Detected Urine Fentanyl Screen Not Detected Ur Barbiturates Screen Not Detected Ur Phencyclidine Scrn Not Detected Ur Amphetamines Screen Not Detected U Benzodiazepines Scrn Not Detected Urine Cocaine Screen Not Detected U Marijuana (THC) Screen Not Detected Ethyl Alcohol < 10 Influenza Type A (PCR) Influenza Type B (PCR) RSV RNA Qual (PCR) SARS-CoV-2 RNA (RT-PCR) 10/17/24 10/17/24 10/17/24 20:46 21:43 22:42 MCV MCH MCHC RDW Plt Count MPV Immature Gran % (Auto) Neut % (Auto) Lymph % (Auto) [place] % (Auto) Eos % (Auto) Baso % (Auto) Lymph # (Auto) [place] # (Auto) Eos # (Auto) Baso # (Auto) Abs Immat Gran (auto) Absolute Neuts (auto) Absolute Nucleated RBC Nucleated RBC % (auto) Smear Tech's Comments PT INR VBG pH VBG pCO2 VBG pO2 VBG HCO3 VBG O2 Saturation VBG Base Excess Anion Gap 14 Estim Creat Clear Calc 101.3 Estimated GFR > 60 POC Glucose 150 H Random Glucose 149 H Calcium 8.8 Magnesium Total Bilirubin Direct Bilirubin AST ALT Alkaline Phosphatase C-Reactive Protein Total Protein Albumin Lipase Beta-Hydroxybutyrate 1.42 H Urine Color Urine Appearance Urine pH Ur Specific [place] Urine Protein Urine Glucose (UA) Urine Ketones Urine Blood Urine Nitrite Ur Leukocyte Esterase Urine RBC Urine WBC Ur Squamous Epith Cells Urine Bacteria Hyaline Casts Urine Opiates Screen Ur Buprenorphine Scrn Ur Oxycodone Screen Urine Methadone Screen Urine Fentanyl Screen Ur Barbiturates Screen Ur Phencyclidine Scrn Ur Amphetamines Screen U Benzodiazepines Scrn Urine Cocaine Screen U Marijuana (THC) Screen Ethyl Alcohol Influenza Type A (PCR) NEGATIVE Influenza Type B (PCR) NEGATIVE RSV RNA Qual (PCR) NEGATIVE SARS-CoV-2 RNA (RT-PCR) NEGATIVE 10/17/24 22:47 MCV MCH MCHC RDW Plt Count MPV Immature Gran % (Auto) Neut % (Auto) Lymph % (Auto) [place] % (Auto) Eos % (Auto) Baso % (Auto) Lymph # (Auto) [place] # (Auto) Eos # (Auto) Baso # (Auto) Abs Immat Gran (auto) Absolute Neuts (auto) Absolute Nucleated RBC Nucleated RBC % (auto) Smear Tech's Comments PT INR VBG pH 7.44 H VBG pCO2 36 VBG pO2 77 VBG HCO3 25 VBG O2 Saturation 97.0 VBG Base Excess 1.5 Anion Gap Estim Creat Clear Calc Estimated GFR POC Glucose Random Glucose Calcium Magnesium Total Bilirubin Direct Bilirubin AST ALT Alkaline Phosphatase C-Reactive Protein Total Protein Albumin Lipase Beta-Hydroxybutyrate Urine Color Urine Appearance Urine pH Ur Specific [place] Urine Protein Urine Glucose (UA) Urine Ketones Urine Blood Urine Nitrite Ur Leukocyte Esterase Urine RBC Urine WBC Ur Squamous Epith Cells Urine Bacteria Hyaline Casts Urine Opiates Screen Ur Buprenorphine Scrn Ur Oxycodone Screen Urine Methadone Screen Urine Fentanyl Screen Ur Barbiturates Screen Ur Phencyclidine Scrn Ur Amphetamines Screen U Benzodiazepines Scrn Urine Cocaine Screen U Marijuana (THC) Screen Ethyl Alcohol Influenza Type A (PCR) Influenza Type B (PCR) RSV RNA Qual (PCR) SARS-CoV-2 RNA (RT-PCR) Assessment and Plan (1) Seizure: Status: Acute (2) Acute encephalopathy: Status: Acute (3) Hyperglycemia: Status: Acute (4) Dry gangrene: Status: Acute (5) Alcohol use disorder: Status: Acute Plan pt is a 44 yo male with a pmhx significant for alcohol use disorder with a hx of etoh withdrawal and wernicke's, T2DM with recurrent DKA, HTN, and seizure disorder, who presented to the ED today due to 2 seizures earlier, witnessed by the pt's mother. the patient is unable to give a history at this time. records from [facility] were printed in the ED with hisotry of recent etoh withdrawal seizure and wernicke's encephalopathy. seizure with acute encephalopathy, likely etoh withdrawal - WBC 12.4 (likely reactive), no fever or tachycardia, lactic acid pending but will be elevated due to seizure, blood cultures x2 pending - elevated blood glucose stress response to seizure - etoh level <10, pt's mother reports heavy etoh use - utox negative - given multiple doses of diazepam in ED with good response - able to tolerate bedside swallow and was given home PO seizure meds, lacosamide, oxcarbazepine and lamotrigine - phenobarb protocol started - thiamine 400mg IV - seizure precautions - folic acid, thiamine and multivitamin - monitor on tele - addiction med consult - monitor CIWA - neurology consult hyperglycemia - likely stress response from seizure - responsive to 1L IVF and inuslin in ED - sliding scale insulin - pt given home dose of lantus in ED, 8U, continue nightly dry gangrene - L great toe suspicious for dry gangrene - CRP normal, ESR pending - MRI L foot - vascular consult - vanco, cefepime and flagyl (PCN allergy) alcohol use disorder - addiction med consult as above HTN - continue home meds seizure disorder - continue home meds Full code VTE prophy: lovenox Pt iwht seizure and encephalopathy, likely etoh withdrawal, complicated by hyperglycemia and dry gangrene, requiring admission for at least 2 midnight stay for IV abx and monitoring. Quality Stroke Does the patient have a stroke diagnosis?: No VTE Prior VTE?: No VTE Risk Level:: Medical - moderate - high VTE Device Contraindication: Treatment Not Indicated VTE Drug Contraindication: N/A - Med Ordered
[2024-10-18] MEDS: PHENobarbitaL sodium 130 MG/ML IM ONCE 260 MG IM (00:57)
[2024-10-18] MEDS: 0.9 % Sodium Chloride Flush 3 ML SYRINGE IVFLUSH ×4 (01:00→20:22)
[2024-10-18] MEDS: Thiamine HCL 400 MG in 0.9 % Sodium Chloride 100 ML 208 MG IV (01:02)
--- NOTE | 2024-10-18 01:06 | PC.NURSE ---
Pt medicated per [facility] Plan of care ongoing
[2024-10-18 01:18] LABS: Erythrocyte Sedimentation Rate 2 MM/HR (0-15)
[2024-10-18] MEDS: cefEPime HCl/D5W 2 GM/50 ML PIGGYBACK IV ×3 (01:24→16:23)
--- NOTE | 2024-10-18 01:27 | PC.NURSE ---
Pt medicated per [facility] Plan of care ongoing.
--- NOTE | 2024-10-18 01:44 | PC.NURSE ---
Phlebotomy attempted to draw blood cultures from patient. Pt refused blood culture labs. SUE Butt notified and aware. PA would like abx given. Plan of care ongoing.
[2024-10-18] MEDS: metroNIDAZOLE/NS 500 MG/100 ML PIGGYBACK 100 MG IV ×3 (01:45→16:23)
[2024-10-18] MEDS: vancomycin/NS 2,000 MG/500 ML PLAST..BAG 250 MG IV (01:55)
[2024-10-18] MEDS: Midazolam HCl 2 MG/2 ML VIAL 6 MG IVPUSH (02:41)
[2024-10-18] MEDS: iohexoL 350 MG/ML 100 ML INFUS..BTL 85 ML IV (03:02)
--- NOTE | 2024-10-18 03:04 | PC.NURSE ---
Pt with CT Plan of care ongoing
--- NOTE | 2024-10-18 03:27 | PC.NURSE ---
Pt refusing to be placed on the monitor Plan of care ongoing.
--- NOTE | 2024-10-18 04:07 | MHC.EDTECH ---
assumed care of pt @[id number]
--- NOTE | 2024-10-18 04:09 | PC.NURSE ---
This commercial loan underwriter assumed care of this Pt at 0330. Pt not answering simple yes or no questions, yelling out with every movement. Pt got out of bed, unsteady for urinal usage, Pt guided back to bed. Pt moved over to hospital bed. Bed lowered, locked and bed alarm placed.
[2024-10-18] MEDS: PHENobarbitaL sodium 130 MG/ML VIAL IM Q3Hx2 195 MG IM ×2 (04:18→08:05)
[2024-10-18 06:23] VITALS: BP 133/76; PULSE 73; RESP 20; O2SAT 97
--- NOTE | 2024-10-18 07:58 | PC.NURSE ---
pt sleeping and will not remove blankets for IM phenobarb. will hold for now.
[2024-10-18 08:00] VITALS: BP 143/80; PULSE 70; RESP 20; TEMP 36.2; O2SAT 98
[2024-10-18 08:10] LABS: Glucose, Whole Blood 248 mg/dL (60-115)
--- NOTE | 2024-10-18 08:15 | P.PNIM_ITS ---
Subjective Subjective Date of Service: 10/18/24 Interval History: f/u on breakthrough seizure, alcohol withdrawal interval history: somonolent, some confusion this morning Physical Exam 2 Vital Signs: Vital Signs: Last Vital Signs Temp 98.7 F 10/17/24 18:45 Pulse 73 10/18/24 06:23 Resp 20 10/18/24 06:23 BP 133/76 10/18/24 06:23 Pulse Ox 97 10/18/24 06:23 O2 Del Method Room Air 10/18/24 06:23 BMI result Body Mass Index 27.5 Const: Other: General: AO X 3, no acute distress Resp: CTA bilateral CVS: S1,S2,RRR GI: +BS, NT, no distention Skin: see pics in h and p Neuro: motor grossly intact Psych: appropriate affect Objective Data Active Medications Acetaminophen (Acetaminophen 325 Mg Tablet) 975 mg PO Q6H PRN PRN Reason: Pain, Mild 1-3,fever,headache Calcium Carbonate (Calcium Carbonate 750 Mg Tab.Chew) 750 mg PO Q4H PRN PRN Reason: Heartburn Dextrose (Dextrose 50 % 25 Gm/50 Ml Syringe) 25 gm IVPUSH Q15M PRN; Protocol PRN Reason: per Hypoglycemia Standing Ord. Enoxaparin Sodium (Enoxaparin Sodium 40 Mg/0.4 Ml Syringe) 40 mg SUBCUT Q24H [facility] Folic Acid (Folic Acid 1 Mg Tablet) 1 mg PO DAILY [facility] Stop: 10/21/24 08:59 Glucose (Glucose Gel 15 Gm Gel..Gram.) 15 gm PO Q15M PRN; Protocol PRN Reason: per Hypoglycemia Standing Ord. Cefepime HCl (Maxipime) 2 gm in 50 mls @ 100 mls/hr IV Q8H [facility] Last Infusion: 10/18/24 02:10 Dose: Infused Documented By: ANGEL LUIS Metronidazole (Flagyl) 500 mg in 100 mls @ 100 mls/hr IV Q8H [facility] Last Infusion: 10/18/24 03:00 Dose: Infused Documented By: ANGEL LUIS Vancomycin HCl 1,000 mg/ (Sodium Chloride) 270 mls @ 270 mls/hr IV Q12H [facility] Insulin Glargine (Insulin Glargine,Hum.Rec.Anlog 100 Unit/Ml 10 Ml Vial) 8 unit SUBCUT BEDTIME [facility] Insulin Human Lispro (Insulin Lispro 100 Unit/Ml 3 Ml Vial) 0 unit SUBCUT QIDACHS [facility]; Protocol Lacosamide (Lacosamide 100 Mg Tablet) 200 mg PO BID [facility] Lamotrigine (Lamotrigine 25 Mg Tablet) 75 mg PO BID [facility] Magnesium Hydroxide (Milk Of Magnesia 30 Ml Oral.Susp) 30 ml PO DAILY PRN PRN Reason: Constipation Melatonin (Melatonin 3 Mg Tablet) 6 mg PO BEDTIME PRN PRN Reason: Insomnia Morphine Sulfate (Morphine Sulfate 4 Mg/Ml Cartridge) 2 mg IVPUSH Q4H PRN; Protocol PRN Reason: Pain, Severe (Pain Scale 7-10) Multivitamins/Vitamin C (Multivitamin Tablet) 1 tab PO DAILY [facility] Stop: 10/21/24 08:59 Ondansetron HCl (Ondansetron Hcl 4 Mg/2 Ml Vial) 4 mg IVPUSH Q8H PRN PRN Reason: Nausea and Vomiting Oxcarbazepine (Oxcarbazepine 300 Mg Tablet) 600 mg PO BID [facility] Oxycodone HCl (Oxycodone Hcl Immed Release 5 Mg Tablet) 5 mg PO Q6H PRN PRN Reason: Pain, Moderate(Pain Scale 4-6) Pharmacy Consult (Consult Rx Etoh Phenob Im/Po) 1 each MISCELLANE ONCE PRN; Protocol PRN Reason: Consult order Pharmacy Consult (Consult Rx Vancomycin Dosing) 1 each MISCELLANE DAILY PRN PRN Reason: Consult order Phenobarbital (Phenobarbital 15 Mg Tablet) 45 mg PO BID [facility]; Protocol Stop: 10/20/24 09:01 Phenobarbital (Phenobarbital 15 Mg Tablet) 15 mg PO BID [facility]; Protocol Stop: 10/22/24 09:01 Phenobarbital (Phenobarbital 15 Mg Tablet) 15 mg PO DAILY [facility]; Protocol Stop: 10/24/24 09:01 Sodium Chloride (0.9 % Sodium Chloride Flush 3 Ml Syringe) [facility] Last Admin: 10/18/24 01:00 Dose: 3 ml Documented By: ANGEL LUIS Thiamine HCl (Thiamine Hcl 100 Mg Tablet) 100 mg PO DAILY [facility] Stop: 10/21/24 08:59 Labs 10/17/24 19:33 10/17/24 22:42 Labs: Laboratory Results - last 24 hr 10/17/24 10/17/24 10/17/24 18:41 19:33 19:39 MCV 81.8 MCH 27.5 MCHC 33.7 RDW 16.3 H Plt Count 300 MPV 9.5 Immature Gran % (Auto) 0.4 Neut % (Auto) 91.2 H Lymph % (Auto) 3.7 L [place] % (Auto) 4.4 Eos % (Auto) 0.0 Baso % (Auto) 0.3 Lymph # (Auto) 0.5 L [place] # (Auto) 0.6 Eos # (Auto) 0.0 Baso # (Auto) 0.0 Abs Immat Gran (auto) 0.05 H Absolute Neuts (auto) 11.3 H Absolute Nucleated RBC 0.000 Nucleated RBC % (auto) 0.0 Smear Tech's Comments VERIFIED ESR 2 PT 12.3 INR 1.1 VBG pH 7.34 VBG pCO2 32 VBG pO2 69 VBG HCO3 17 L VBG O2 Saturation 92.0 VBG Base Excess -6.8 Anion Gap 21 H Estim Creat Clear Calc 70.1 Estimated GFR 60 POC Glucose 417 H* Random Glucose 364 H* Calcium 9.0 Magnesium 2.7 H Total Bilirubin 0.3 Direct Bilirubin 0.1 AST 20 ALT 15 Alkaline Phosphatase 85 C-Reactive Protein 0.13 Total Protein 7.1 Albumin 4.3 Lipase 4 L Beta-Hydroxybutyrate 0.52 H Urine Color Yellow Urine Appearance Clear Urine pH 5.5 Ur Specific [place] 1.025 Urine Protein Negative Urine Glucose (UA) >=1000 H Urine Ketones 80 Urine Blood Negative Urine Nitrite Negative Ur Leukocyte Esterase Negative Urine RBC 0-2 Urine WBC 0-5 Ur Squamous Epith Cells 0-2 Urine Bacteria None Seen Hyaline Casts 0-2 Urine Opiates Screen Not Detected Ur Buprenorphine Scrn Not Detected Ur Oxycodone Screen Not Detected Urine Methadone Screen Not Detected Urine Fentanyl Screen Not Detected Ur Barbiturates Screen Not Detected Ur Phencyclidine Scrn Not Detected Ur Amphetamines Screen Not Detected U Benzodiazepines Scrn Not Detected Urine Cocaine Screen Not Detected U Marijuana (THC) Screen Not Detected Ethyl Alcohol < 10 Influenza Type A (PCR) Influenza Type B (PCR) RSV RNA Qual (PCR) SARS-CoV-2 RNA (RT-PCR) 10/17/24 10/17/24 10/17/24 20:46 21:43 22:42 MCV MCH MCHC RDW Plt Count MPV Immature Gran % (Auto) Neut % (Auto) Lymph % (Auto) [place] % (Auto) Eos % (Auto) Baso % (Auto) Lymph # (Auto) [place] # (Auto) Eos # (Auto) Baso # (Auto) Abs Immat Gran (auto) Absolute Neuts (auto) Absolute Nucleated RBC Nucleated RBC % (auto) Smear Tech's Comments ESR PT INR VBG pH VBG pCO2 VBG pO2 VBG HCO3 VBG O2 Saturation VBG Base Excess Anion Gap 14 Estim Creat Clear Calc 101.3 Estimated GFR > 60 POC Glucose 150 H Random Glucose 149 H Calcium 8.8 Magnesium Total Bilirubin Direct Bilirubin AST ALT Alkaline Phosphatase C-Reactive Protein Total Protein Albumin Lipase Beta-Hydroxybutyrate 1.42 H Urine Color Urine Appearance Urine pH Ur Specific [place] Urine Protein Urine Glucose (UA) Urine Ketones Urine Blood Urine Nitrite Ur Leukocyte Esterase Urine RBC Urine WBC Ur Squamous Epith Cells Urine Bacteria Hyaline Casts Urine Opiates Screen Ur Buprenorphine Scrn Ur Oxycodone Screen Urine Methadone Screen Urine Fentanyl Screen Ur Barbiturates Screen Ur Phencyclidine Scrn Ur Amphetamines Screen U Benzodiazepines Scrn Urine Cocaine Screen U Marijuana (THC) Screen Ethyl Alcohol Influenza Type A (PCR) NEGATIVE Influenza Type B (PCR) NEGATIVE RSV RNA Qual (PCR) NEGATIVE SARS-CoV-2 RNA (RT-PCR) NEGATIVE 10/17/24 10/18/24 22:47 08:06 MCV MCH MCHC RDW Plt Count MPV Immature Gran % (Auto) Neut % (Auto) Lymph % (Auto) [place] % (Auto) Eos % (Auto) Baso % (Auto) Lymph # (Auto) [place] # (Auto) Eos # (Auto) Baso # (Auto) Abs Immat Gran (auto) Absolute Neuts (auto) Absolute Nucleated RBC Nucleated RBC % (auto) Smear Tech's Comments ESR PT INR VBG pH 7.44 H VBG pCO2 36 VBG pO2 77 VBG HCO3 25 VBG O2 Saturation 97.0 VBG Base Excess 1.5 Anion Gap Estim Creat Clear Calc Estimated GFR POC Glucose 248 H Random Glucose Calcium Magnesium Total Bilirubin Direct Bilirubin AST ALT Alkaline Phosphatase C-Reactive Protein Total Protein Albumin Lipase Beta-Hydroxybutyrate Urine Color Urine Appearance Urine pH Ur Specific [place] Urine Protein Urine Glucose (UA) Urine Ketones Urine Blood Urine Nitrite Ur Leukocyte Esterase Urine RBC Urine WBC Ur Squamous Epith Cells Urine Bacteria Hyaline Casts Urine Opiates Screen Ur Buprenorphine Scrn Ur Oxycodone Screen Urine Methadone Screen Urine Fentanyl Screen Ur Barbiturates Screen Ur Phencyclidine Scrn Ur Amphetamines Screen U Benzodiazepines Scrn Urine Cocaine Screen U Marijuana (THC) Screen Ethyl Alcohol Influenza Type A (PCR) Influenza Type B (PCR) RSV RNA Qual (PCR) SARS-CoV-2 RNA (RT-PCR) Assessment and Plan (1) Alcohol dependence: Status: Acute (2) Dry gangrene: Status: Acute (3) Seizure disorder: Status: Acute (4) Acute encephalopathy: Status: Acute Plan pt is a 44 yo male with a pmhx significant for alcohol use disorder with a hx of etoh withdrawal and wernicke's, T2DM with recurrent DKA, HTN, and seizure disorder, who presented to the ED today due to 2 seizures earlier, witnessed by the pt's mother. the patient is unable to give a history at this time. records from [facility] were printed in the ED with hisotry of recent etoh withdrawal seizure and wernicke's encephalopathy. seizure with acute encephalopathy, likely triggered by etoh withdrawal but also has underlying seizure d/o continue phenobarbital neurology consult eeg when available. seizure precaution resume home meds once meds rec completed Alcohol withdrawal monitor ciwa phenobarbital protocol thiamine and folate replacement mild leukocytosis, likely reactive, monitor diabetes with hyperglycemia, no dka IVF continue Lantus and Sliding scale, diabetic diet. dry gangrene L great toe suspicious for dry gangrene, normal crp, mri requested, on vanco, cefepime and flagyl, modified Abx depending vascular surgery alcohol use disorder addiction med consult as above HTN continue home meds seizure disorder continue home meds Full code VTE prophy: lovenox Pt iwht seizure and encephalopathy, likely etoh withdrawal, complicated by hyperglycemia and dry gangrene, requiring admission for at least 2 midnight stay for IV abx and monitoring. Quality Stroke Does the patient have a stroke diagnosis?: No VTE Prior VTE?: No VTE Risk Level:: Medical - moderate - high VTE Device Contraindication: Treatment Not Indicated VTE Drug Contraindication: N/A - Med Ordered
[2024-10-18] MEDS: Multivitamin TABLET 1 TAB PO (09:27)
[2024-10-18] MEDS: Thiamine HCL 100 MG TABLET PO (09:27)
[2024-10-18] MEDS: lamoTRIgine 25 MG TABLET 75 MG PO ×2 (09:27→20:21)
[2024-10-18] MEDS: Folic Acid 1 MG TABLET PO (09:27)
[2024-10-18] MEDS: OXcarbazepine 300 MG TABLET 600 MG PO ×2 (09:27→20:21)
[2024-10-18] MEDS: Lacosamide 100 MG TABLET 200 MG PO ×2 (09:27→20:20)
[2024-10-18] MEDS: Insulin Lispro 100 UNIT/ML 3 ML VIAL SUBCUT ×3 (09:28→20:22)
--- NOTE | 2024-10-18 09:34 | PHA.MEDREC ---
Addendum entered by Anne Gunter RPh 10/18/24 09:45: MED REC REVIEWED BY [facility] Original Note: Pharmacy Consult ? Medication Reconciliation Pharmacy has completed the medication reconciliation. Spoke with patients mom over the phone (Rimma). She confirmed Lantus 8 units at bedtime and humalog SS tid. She does not think he had vivitrol this month, last time was 09/17. She also confirmed lacosamide, oxcarbazepine, and lamotrigine. Lamotrigine has not been picked up since May 2024 x30 DS per [facility], provider is aware. She also reported famotidine prn and furosemide. She said to call [facility] for the rest. Used claims to verify.
[2024-10-18 11:57] LABS: Glucose, Whole Blood 192 mg/dL (60-115)
[2024-10-18] MEDS: gadobutroL 7.5 ML VIAL IVPUSH (13:50)
[2024-10-18 14:19] VITALS: BP 128/71; PULSE 75; RESP 20; TEMP 36.7; O2SAT 99
[2024-10-18] MEDS: amLODIPine Besylate 10 MG TABLET PO (14:21)
[2024-10-18] MEDS: vancomycin HCL 1,000 MG in 0.9 % Sodium Chloride 250 ML 270 MG IV (14:22)
--- NOTE | 2024-10-18 15:02 | MHC.CM.PN ---
CM attempted to meet pt. today to complete assessment, he is sound asleep, CM will see him tomorrow.
[2024-10-18 16:00] VITALS: BP 114/61; PULSE 73; RESP 20; TEMP 36.7; O2SAT 100
[2024-10-18 16:04] LABS: Glucose, Whole Blood 335 mg/dL (60-115)
[2024-10-18 19:49] VITALS: BP 103/59; PULSE 72; RESP 20; TEMP 37.1; O2SAT 98
[2024-10-18] MEDS: PHENobarbitaL 15 MG TABLET 45 MG PO (20:20)
[2024-10-18] MEDS: Insulin Glargine,Hum.rec.anlog 100 UNIT/ML 10 ML VIAL 8 UNIT SUBCUT (20:21)
[2024-10-18 20:36] LABS: Glucose, Whole Blood 322 mg/dL (60-115)
[2024-10-18 23:41] VITALS: BP 85/60; PULSE 59; RESP 20; TEMP 36.3; O2SAT 100
[2024-10-19] VITALS (9 sets, daily range): BP systolic 98–123; BP diastolic 62–82; PULSE 60–66; RESP 16–18; TEMP 36.3–36.8; O2SAT 96–100
[2024-10-19] MEDS: cefEPime HCl/D5W 2 GM/50 ML PIGGYBACK IV ×2 (00:38→09:26)
[2024-10-19] MEDS: metroNIDAZOLE/NS 500 MG/100 ML PIGGYBACK 100 MG IV ×2 (01:14→10:04)
[2024-10-19] MEDS: vancomycin HCL 1,000 MG in 0.9 % Sodium Chloride 250 ML 270 MG IV (03:31)
[2024-10-19 06:06] LABS: Hematocrit 36.6 % (42.0-52.0); Hemoglobin 11.8 g/dl (14.0-18.0); Mean Corpuscular HGB Conc 32.2 g/dl (31.0-36.0); Mean Corpuscular Hemoglobin 26.9 pg (27.0-33.0); Mean Corpuscular Volume 83.6 fL (80.0-98.0); Mean Platelet Volume 9.9 fL (9.4-12.4); Platelet Count 251 X10*3/uL (160-400); Red Blood Count 4.38 X10*6/uL (4.60-5.80); Red Cell Distribution Width 16.5 % (11.0-16.0)
[2024-10-19 06:14] LABS: Anion Gap 11 (12-20); Blood Urea Nitrogen 6 mg/dL (9-16); Calcium 8.7 mg/dL (8.4-10.2); Carbon Dioxide 24 mmol/L (22-29); Chloride 107 mmol/L (96-108); Creatinine Clr Calc Pharmacy 126.7; Estimated Glomerular Filt Rate > 60; Glucose Random 73 mg/dL (60-115); Potassium 3.3 mmol/L (3.3-5.1); Sodium 139 mmol/L (135-145)
[2024-10-19 07:27] LABS: Glucose, Whole Blood 96 mg/dL (60-115)
--- NOTE | 2024-10-19 09:34 | HO.PM.IMPN ---
Subjective Subjective Date of Service: 10/19/24 Interval History: f/u on breakthrough seizure, alcohol withdrawal No further seizure, awake, alert and oriented, cooperative, no sings of withdrawal from alcohol Physical Exam Vital Signs: Vital Signs: Last Vital Signs Temp 97.5 F 10/19/24 07:56 Pulse 61 10/19/24 07:56 Resp 18 10/19/24 07:56 BP 116/67 10/19/24 07:56 Pulse Ox 98 10/19/24 07:56 O2 Del Method Room Air 10/19/24 07:56 BMI result Body Mass Index 27.5 Const: Other: General: AO X 3, no acute distress Resp: CTA bilateral CVS: S1,S2,RRR GI: +BS, NT, no distention Skin: see pics in h and p Neuro: motor grossly intact Psych: appropriate affect Objective Data Active Medications Acetaminophen (Acetaminophen 325 Mg Tablet) 975 mg PO Q6H PRN PRN Reason: Pain, Mild 1-3,fever,headache Amlodipine Besylate (Amlodipine Besylate 10 Mg Tablet) 10 mg PO DAILY [facility]; Protocol Last Admin: 10/18/24 14:21 Dose: 10 mg Documented By: CHRISTIAN Artificial Tears (Artificial Tears 15 Ml Drops) 1 drop EYE-BOTH Q4H PRN PRN Reason: itching eyes Calcium Carbonate (Calcium Carbonate 750 Mg Tab.Chew) 750 mg PO Q4H PRN PRN Reason: Heartburn Dextrose (Dextrose 50 % 25 Gm/50 Ml Syringe) 25 gm IVPUSH Q15M PRN; Protocol PRN Reason: per Hypoglycemia Standing Ord. Enoxaparin Sodium (Enoxaparin Sodium 40 Mg/0.4 Ml Syringe) 40 mg SUBCUT Q24H [facility] Last Admin: 10/18/24 09:39 Dose: Not Given Documented By: CHRISTIAN Non-Admin Reason: Patient Refused Famotidine (Famotidine 20 Mg Tablet) 20 mg PO DAILY PRN PRN Reason: Heartburn Ferrous Sulfate (Ferrous Sulfate 324 Mg Tablet.Dr) 324 mg PO DAILY [facility] Folic Acid (Folic Acid 1 Mg Tablet) 1 mg PO DAILY [facility] Stop: 10/21/24 08:59 Last Admin: 10/18/24 09:27 Dose: 1 mg Documented By: CHRISTIAN Furosemide (Furosemide 20 Mg Tablet) 20 mg PO DAILY [facility]; Protocol Glucose (Glucose Gel 15 Gm Gel..Gram.) 15 gm PO Q15M PRN; Protocol PRN Reason: per Hypoglycemia Standing Ord. Cefepime HCl (Maxipime) 2 gm in 50 mls @ 100 mls/hr IV Q8H [facility] Last Infusion: 10/19/24 01:08 Dose: Infused Documented By: MARIBELL Metronidazole (Flagyl) 500 mg in 100 mls @ 100 mls/hr IV Q8H [facility] Last Infusion: 10/19/24 02:14 Dose: Infused Documented By: MARIBELL Vancomycin HCl 1,000 mg/ (Sodium Chloride) 270 mls @ 270 mls/hr IV Q12H [facility] Last Infusion: 10/19/24 04:31 Dose: Infused Documented By: MARIBELL Insulin Glargine (Insulin Glargine,Hum.Rec.Anlog 100 Unit/Ml 10 Ml Vial) 8 unit SUBCUT BEDTIME [facility] Last Admin: 10/18/24 20:21 Dose: 8 unit Documented By: MARIBELL Insulin Glargine (Insulin Glargine,Hum.Rec.Anlog 100 Unit/Ml 10 Ml Vial) 10 unit SUBCUT DAILY [facility] Insulin Human Lispro (Insulin Lispro 100 Unit/Ml 3 Ml Vial) 0 unit SUBCUT QIDACHS [facility]; Protocol Last Admin: 10/18/24 20:22 Dose: 8 unit Documented By: MARIBELL Lacosamide (Lacosamide 100 Mg Tablet) 200 mg PO BID [facility] Last Admin: 10/18/24 20:20 Dose: 200 mg Documented By: MARIBELL Lamotrigine (Lamotrigine 25 Mg Tablet) 75 mg PO BID [facility] Last Admin: 10/18/24 20:21 Dose: 75 mg Documented By: MARIBELL Losartan Potassium (Losartan Potassium 25 Mg Tablet) 25 mg PO DAILY [facility]; Protocol Magnesium Hydroxide (Milk Of Magnesia 30 Ml Oral.Susp) 30 ml PO DAILY PRN PRN Reason: Constipation Melatonin (Melatonin 3 Mg Tablet) 6 mg PO BEDTIME PRN PRN Reason: Insomnia Morphine Sulfate (Morphine Sulfate 4 Mg/Ml Cartridge) 2 mg IVPUSH Q4H PRN; Protocol PRN Reason: Pain, Severe (Pain Scale 7-10) Multivitamins/Vitamin C (Multivitamin Tablet) 1 tab PO DAILY [facility] Stop: 10/21/24 08:59 Last Admin: 10/18/24 09:27 Dose: 1 tab Documented By: CHRISTIAN Ondansetron HCl (Ondansetron Hcl 4 Mg/2 Ml Vial) 4 mg IVPUSH Q8H PRN PRN Reason: Nausea and Vomiting Oxcarbazepine (Oxcarbazepine 300 Mg Tablet) 600 mg PO BID [facility] Last Admin: 10/18/24 20:21 Dose: 600 mg Documented By: AMRIBELL Oxycodone HCl (Oxycodone Hcl Immed Release 5 Mg Tablet) 5 mg PO Q6H PRN PRN Reason: Pain, Moderate(Pain Scale 4-6) Pharmacy Consult (Consult Rx Etoh Phenob Im/Po) 1 each MISCELLANE ONCE PRN; Protocol PRN Reason: Consult order Pharmacy Consult (Consult Rx Vancomycin Dosing) 1 each MISCELLANE DAILY PRN PRN Reason: Consult order Phenobarbital (Phenobarbital 15 Mg Tablet) 45 mg PO BID [facility]; Protocol Stop: 10/20/24 09:01 Last Admin: 10/18/24 20:20 Dose: 45 mg Documented By: MARIBELL Phenobarbital (Phenobarbital 15 Mg Tablet) 15 mg PO BID [facility]; Protocol Stop: 10/22/24 09:01 Phenobarbital (Phenobarbital 15 Mg Tablet) 15 mg PO DAILY [facility]; Protocol Stop: 10/24/24 09:01 Sodium Chloride (0.9 % Sodium Chloride Flush 3 Ml Syringe) [facility] Last Admin: 10/18/24 20:22 Dose: 3 ml Documented By: MARIBELL Thiamine HCl (Thiamine Hcl 100 Mg Tablet) 100 mg PO DAILY [facility] Stop: 10/21/24 08:59 Last Admin: 10/18/24 09:27 Dose: 100 mg Documented By: CHRISTIAN Labs 10/19/24 05:45 10/19/24 05:45 Labs: Laboratory Results - last 24 hr 10/18/24 10/18/24 10/18/24 11:43 16:00 20:14 MCV MCH MCHC RDW Plt Count MPV Absolute Nucleated RBC Nucleated RBC % (auto) Anion Gap Estim Creat Clear Calc Estimated GFR POC Glucose 192 H 335 H 322 H Random Glucose Lactic Acid Calcium 10/19/24 10/19/24 05:45 07:16 MCV 83.6 MCH 26.9 L MCHC 32.2 RDW 16.5 H Plt Count 251 MPV 9.9 Absolute Nucleated RBC 0.000 Nucleated RBC % (auto) 0.0 Anion Gap 11 L Estim Creat Clear Calc 126.7 Estimated GFR > 60 POC Glucose 96 Random Glucose 73 Lactic Acid 1.0 Calcium 8.7 Assessment and Plan (1) Alcohol dependence: Status: Acute (2) Dry gangrene: Status: Acute (3) Seizure disorder: Status: Acute (4) Acute encephalopathy: Status: Acute Plan pt is a 44 yo male with a pmhx significant for alcohol use disorder with a hx of etoh withdrawal and wernicke's, T2DM with recurrent DKA, HTN, and seizure disorder, who presented to the ED today due to 2 seizures earlier, witnessed by the pt's mother. the patient is unable to give a history at this time. records from [facility] were printed in the ED with hisotry of recent etoh withdrawal seizure and wernicke's encephalopathy. seizure with acute encephalopathy, likely triggered by etoh withdrawal but also has underlying seizure d/o probably not compliant with meds continue Vimpat, lamictal and trileptal continue phenobarbital for alcohol withdrawal neurology consult eeg when available. seizure precaution Alcohol withdrawal monitor ciwa phenobarbital protocol thiamine and folate replacement mild leukocytosis, likely reactive, monitor diabetes with hyperglycemia, no dka IVF continue Lantus 10 in am and 8 at night and adjust as needed, and Sliding scale, diabetic diet. dry gangrene L great toe suspicious MRI Findings concerning for osteomyelitis of the 1st distal tuft. dc vanco, flagyl, and cefepim. Add meropenem. ID consult. Vascular surgery consult alcohol use disorder addiction med consult as above HTN continue home meds seizure disorder continue home meds Full code VTE prophy: lovenox Pt iwht seizure and encephalopathy, likely etoh withdrawal, complicated by hyperglycemia and dry gangrene, requiring admission for at least 2 midnight stay for IV abx and monitoring. Quality Stroke Does the patient have a stroke diagnosis?: No VTE Prior VTE?: No VTE Risk Level:: Medical - moderate - high VTE Device Contraindication: Treatment Not Indicated VTE Drug Contraindication: N/A - Med Ordered
[2024-10-19] MEDS: Insulin Glargine,Hum.rec.anlog 100 UNIT/ML 10 ML VIAL 10 UNIT SUBCUT (09:42)
[2024-10-19] MEDS: Multivitamin TABLET 1 TAB PO (09:46)
[2024-10-19] MEDS: OXcarbazepine 300 MG TABLET 600 MG PO ×2 (09:47→20:20)
[2024-10-19] MEDS: Ferrous Sulfate 324 MG TABLET.DR PO (09:47)
[2024-10-19] MEDS: Lacosamide 100 MG TABLET 200 MG PO ×2 (09:48→20:19)
[2024-10-19] MEDS: Thiamine HCL 100 MG TABLET PO (09:50)
[2024-10-19] MEDS: amLODIPine Besylate 10 MG TABLET PO (09:50)
[2024-10-19] MEDS: Losartan Potassium 25 MG TABLET PO (09:51)
[2024-10-19] MEDS: Folic Acid 1 MG TABLET PO (09:52)
[2024-10-19] MEDS: Furosemide 20 MG TABLET PO (09:53)
[2024-10-19] MEDS: PHENobarbitaL 15 MG TABLET 45 MG PO ×2 (09:54→20:20)
[2024-10-19] MEDS: lamoTRIgine 25 MG TABLET 75 MG PO ×2 (09:56→20:19)
[2024-10-19] MEDS: Enoxaparin Sodium 40 MG/0.4 ML SYRINGE SUBCUT (10:00)
[2024-10-19] MEDS: 0.9 % Sodium Chloride Flush 3 ML SYRINGE IVFLUSH ×3 (10:11→20:21)
[2024-10-19] MEDS: Meropenem 1 GM VIAL IVPUSH ×2 (10:27→16:51)
--- NOTE | 2024-10-19 10:53 | MHC.CM.PN ---
Pt lives with his parents, PCP is Dolores Zayas at [facility]. He said he has a VNA that his PCP arranged for a foot injury, he does not know which agency. He does not use DME. Family to transport home at DC, DCP: Home, self care. CM to follow for DC needs.
[2024-10-19 11:05] LABS: Glucose, Whole Blood 381 mg/dL (60-115)
--- NOTE | 2024-10-19 11:34 | HO.ADDICT_ITS ---
History of Present Illness Date of Service: 10/19/2024 Chief Complaint: seizure, hyperglycemia Reason for Consult: AUD HPI Narrative: Patient is a 44 year old male with history AUD and T1DM, medically admitted following alcohol withdrawal seizure at home. Patient seen in room 446, he is awake, alert and oriented. He reports he has no recollection of anything that occurred leading up to hospital admission, and was not aware that he was in the hospital until he was told by a nurse once he finally woke up. He reports a long history of AUD, stating he has been drinking on and off for over 30 years. He reports numerous treatment admission in various levels of care, including section 35 commitments He is currently prescribed vivitrol via PCP office [facility] and last injection administered 2 weeks ago He does not know if it is helpful or not, stating I have been doing this for 30 years, I think this is just what it is . Denies any history pancreatitis. Chart review shows history of WE Reports his last drink was a week ago, and at that time was drinking approx a six pack Reports numerous seizures Denies any withdrawal sx, but reports feeling tired and confused about what brought him here. He is very knowledgeable about his AUD, and how it's managed, including vitamins and tapering to avoid sever withdrawal sx. Also aware of how ongoing drinking impacts his DM. Review of Systems Constitutional: Reports as per HPI Gastrointestinal: Reports loose stools, Denies nausea and Denies vomiting Musculoskeletal: Reports myalgias Diagnostics Vital Signs (24Hr): Vital Signs - 24 hr 10/18/24 14:19 10/18/24 16:00 10/18/24 19:49 Temperature 98.0 F 98.0 F 98.7 F Pulse Rate 75 73 72 Respiratory Rate 20 20 20 Blood Pressure 128/71 114/61 103/59 L Pulse Oximetry 99 100 98 Oxygen Delivery Method Room Air Room Air Room Air 10/18/24 23:41 10/19/24 00:00 10/19/24 03:36 Temperature 97.3 F 97.3 F Pulse Rate 59 60 60 Respiratory Rate 20 18 Blood Pressure 85/60 L 98/62 100/62 Pulse Oximetry 100 98 Oxygen Delivery Method Room Air Room Air 10/19/24 07:56 10/19/24 09:50 10/19/24 09:51 Temperature 97.5 F Pulse Rate 61 Respiratory Rate 18 Blood Pressure 116/67 123/82 123/82 Pulse Oximetry 98 Oxygen Delivery Method Room Air 10/19/24 09:53 Temperature Pulse Rate Respiratory Rate Blood Pressure 123/82 Pulse Oximetry Oxygen Delivery Method BMI result Body Mass Index 27.5 Labs 10/19/24 05:45 10/19/24 05:45 Labs: Laboratory Results - last 48 hr 10/17/24 10/17/24 10/17/24 18:41 19:33 19:39 WBC 12.4 H RBC 4.72 Hgb 13.0 L Hct 38.6 L MCV 81.8 MCH 27.5 MCHC 33.7 RDW 16.3 H Plt Count 300 MPV 9.5 Immature Gran % (Auto) 0.4 Neut % (Auto) 91.2 H Lymph % (Auto) 3.7 L [place] % (Auto) 4.4 Eos % (Auto) 0.0 Baso % (Auto) 0.3 Lymph # (Auto) 0.5 L [place] # (Auto) 0.6 Eos # (Auto) 0.0 Baso # (Auto) 0.0 Abs Immat Gran (auto) 0.05 H Absolute Neuts (auto) 11.3 H Absolute Nucleated RBC 0.000 Nucleated RBC % (auto) 0.0 Smear Tech's Comments VERIFIED ESR 2 PT 12.3 INR 1.1 VBG pH 7.34 VBG pCO2 32 VBG pO2 69 VBG HCO3 17 L VBG O2 Saturation 92.0 VBG Base Excess -6.8 Sodium 141 Potassium 4.2 Chloride 108 Carbon Dioxide 16 L Anion Gap 21 H BUN 12 Creatinine 1.30 Estim Creat Clear Calc 70.1 Estimated GFR 60 POC Glucose 417 H* Random Glucose 364 H* Lactic Acid Calcium 9.0 Magnesium 2.7 H Total Bilirubin 0.3 Direct Bilirubin 0.1 AST 20 ALT 15 Alkaline Phosphatase 85 Troponin I High Sens 5.7 C-Reactive Protein 0.13 Total Protein 7.1 Albumin 4.3 Lipase 4 L Beta-Hydroxybutyrate 0.52 H Urine Color Yellow Urine Appearance Clear Urine pH 5.5 Ur Specific [place] 1.025 Urine Protein Negative Urine Glucose (UA) >=1000 H Urine Ketones 80 Urine Blood Negative Urine Nitrite Negative Ur Leukocyte Esterase Negative Urine RBC 0-2 Urine WBC 0-5 Ur Squamous Epith Cells 0-2 Urine Bacteria None Seen Hyaline Casts 0-2 Urine Opiates Screen Not Detected Ur Buprenorphine Scrn Not Detected Ur Oxycodone Screen Not Detected Urine Methadone Screen Not Detected Urine Fentanyl Screen Not Detected Ur Barbiturates Screen Not Detected Ur Phencyclidine Scrn Not Detected Ur Amphetamines Screen Not Detected U Benzodiazepines Scrn Not Detected Urine Cocaine Screen Not Detected U Marijuana (THC) Screen Not Detected Ethyl Alcohol < 10 Influenza Type A (PCR) Influenza Type B (PCR) RSV RNA Qual (PCR) SARS-CoV-2 RNA (RT-PCR) 10/17/24 10/17/24 10/17/24 20:46 21:43 22:42 WBC RBC Hgb Hct MCV MCH MCHC RDW Plt Count MPV Immature Gran % (Auto) Neut % (Auto) Lymph % (Auto) [place] % (Auto) Eos % (Auto) Baso % (Auto) Lymph # (Auto) [place] # (Auto) Eos # (Auto) Baso # (Auto) Abs Immat Gran (auto) Absolute Neuts (auto) Absolute Nucleated RBC Nucleated RBC % (auto) Smear Tech's Comments ESR PT INR VBG pH VBG pCO2 VBG pO2 VBG HCO3 VBG O2 Saturation VBG Base Excess Sodium 143 Potassium 4.0 Chloride 111 H Carbon Dioxide 22 Anion Gap 14 BUN 10 Creatinine 0.90 Estim Creat Clear Calc 101.3 Estimated GFR > 60 POC Glucose 150 H Random Glucose 149 H Lactic Acid Calcium 8.8 Magnesium Total Bilirubin Direct Bilirubin AST ALT Alkaline Phosphatase Troponin I High Sens C-Reactive Protein Total Protein Albumin Lipase Beta-Hydroxybutyrate 1.42 H Urine Color Urine Appearance Urine pH Ur Specific [place] Urine Protein Urine Glucose (UA) Urine Ketones Urine Blood Urine Nitrite Ur Leukocyte Esterase Urine RBC Urine WBC Ur Squamous Epith Cells Urine Bacteria Hyaline Casts Urine Opiates Screen Ur Buprenorphine Scrn Ur Oxycodone Screen Urine Methadone Screen Urine Fentanyl Screen Ur Barbiturates Screen Ur Phencyclidine Scrn Ur Amphetamines Screen U Benzodiazepines Scrn Urine Cocaine Screen U Marijuana (THC) Screen Ethyl Alcohol Influenza Type A (PCR) NEGATIVE Influenza Type B (PCR) NEGATIVE RSV RNA Qual (PCR) NEGATIVE SARS-CoV-2 RNA (RT-PCR) NEGATIVE 10/17/24 10/18/24 10/18/24 22:47 08:06 11:43 WBC RBC Hgb Hct MCV MCH MCHC RDW Plt Count MPV Immature Gran % (Auto) Neut % (Auto) Lymph % (Auto) [place] % (Auto) Eos % (Auto) Baso % (Auto) Lymph # (Auto) [place] # (Auto) Eos # (Auto) Baso # (Auto) Abs Immat Gran (auto) Absolute Neuts (auto) Absolute Nucleated RBC Nucleated RBC % (auto) Smear Tech's Comments ESR PT INR VBG pH 7.44 H VBG pCO2 36 VBG pO2 77 VBG HCO3 25 VBG O2 Saturation 97.0 VBG Base Excess 1.5 Sodium Potassium Chloride Carbon Dioxide Anion Gap BUN Creatinine Estim Creat Clear Calc Estimated GFR POC Glucose 248 H 192 H Random Glucose Lactic Acid Calcium Magnesium Total Bilirubin Direct Bilirubin AST ALT Alkaline Phosphatase Troponin I High Sens C-Reactive Protein Total Protein Albumin Lipase Beta-Hydroxybutyrate Urine Color Urine Appearance Urine pH Ur Specific [place] Urine Protein Urine Glucose (UA) Urine Ketones Urine Blood Urine Nitrite Ur Leukocyte Esterase Urine RBC Urine WBC Ur Squamous Epith Cells Urine Bacteria Hyaline Casts Urine Opiates Screen Ur Buprenorphine Scrn Ur Oxycodone Screen Urine Methadone Screen Urine Fentanyl Screen Ur Barbiturates Screen Ur Phencyclidine Scrn Ur Amphetamines Screen U Benzodiazepines Scrn Urine Cocaine Screen U Marijuana (THC) Screen Ethyl Alcohol Influenza Type A (PCR) Influenza Type B (PCR) RSV RNA Qual (PCR) SARS-CoV-2 RNA (RT-PCR) 10/18/24 10/18/24 10/19/24 16:00 20:14 05:45 WBC 7.0 RBC 4.38 L Hgb 11.8 L Hct 36.6 L MCV 83.6 MCH 26.9 L MCHC 32.2 RDW 16.5 H Plt Count 251 MPV 9.9 Immature Gran % (Auto) Neut % (Auto) Lymph % (Auto) [place] % (Auto) Eos % (Auto) Baso % (Auto) Lymph # (Auto) [place] # (Auto) Eos # (Auto) Baso # (Auto) Abs Immat Gran (auto) Absolute Neuts (auto) Absolute Nucleated RBC 0.000 Nucleated RBC % (auto) 0.0 Smear Tech's Comments ESR PT INR VBG pH VBG pCO2 VBG pO2 VBG HCO3 VBG O2 Saturation VBG Base Excess Sodium 139 Potassium 3.3 Chloride 107 Carbon Dioxide 24 Anion Gap 11 L BUN 6 L Creatinine 0.72 Estim Creat Clear Calc 126.7 Estimated GFR > 60 POC Glucose 335 H 322 H Random Glucose 73 Lactic Acid 1.0 Calcium 8.7 Magnesium Total Bilirubin Direct Bilirubin AST ALT Alkaline Phosphatase Troponin I High Sens C-Reactive Protein Total Protein Albumin Lipase Beta-Hydroxybutyrate Urine Color Urine Appearance Urine pH Ur Specific [place] Urine Protein Urine Glucose (UA) Urine Ketones Urine Blood Urine Nitrite Ur Leukocyte Esterase Urine RBC Urine WBC Ur Squamous Epith Cells Urine Bacteria Hyaline Casts Urine Opiates Screen Ur Buprenorphine Scrn Ur Oxycodone Screen Urine Methadone Screen Urine Fentanyl Screen Ur Barbiturates Screen Ur Phencyclidine Scrn Ur Amphetamines Screen U Benzodiazepines Scrn Urine Cocaine Screen U Marijuana (THC) Screen Ethyl Alcohol Influenza Type A (PCR) Influenza Type B (PCR) RSV RNA Qual (PCR) SARS-CoV-2 RNA (RT-PCR) 10/19/24 10/19/24 07:16 11:01 WBC RBC Hgb Hct MCV MCH MCHC RDW Plt Count MPV Immature Gran % (Auto) Neut % (Auto) Lymph % (Auto) [place] % (Auto) Eos % (Auto) Baso % (Auto) Lymph # (Auto) [place] # (Auto) Eos # (Auto) Baso # (Auto) Abs Immat Gran (auto) Absolute Neuts (auto) Absolute Nucleated RBC Nucleated RBC % (auto) Smear Tech's Comments ESR PT INR VBG pH VBG pCO2 VBG pO2 VBG HCO3 VBG O2 Saturation VBG Base Excess Sodium Potassium Chloride Carbon Dioxide Anion Gap BUN Creatinine Estim Creat Clear Calc Estimated GFR POC Glucose 96 381 H* Random Glucose Lactic Acid Calcium Magnesium Total Bilirubin Direct Bilirubin AST ALT Alkaline Phosphatase Troponin I High Sens C-Reactive Protein Total Protein Albumin Lipase Beta-Hydroxybutyrate Urine Color Urine Appearance Urine pH Ur Specific [place] Urine Protein Urine Glucose (UA) Urine Ketones Urine Blood Urine Nitrite Ur Leukocyte Esterase Urine RBC Urine WBC Ur Squamous Epith Cells Urine Bacteria Hyaline Casts Urine Opiates Screen Ur Buprenorphine Scrn Ur Oxycodone Screen Urine Methadone Screen Urine Fentanyl Screen Ur Barbiturates Screen Ur Phencyclidine Scrn Ur Amphetamines Screen U Benzodiazepines Scrn Urine Cocaine Screen U Marijuana (THC) Screen Ethyl Alcohol Influenza Type A (PCR) Influenza Type B (PCR) RSV RNA Qual (PCR) SARS-CoV-2 RNA (RT-PCR) Mental Status Exam Mental Status Exam Patient Orientation: Person, Place and Situation Level of Consciousness: Awake, Appropriate and Alert Patient Behavior: Appropriate and Talkative Affect Description: Calm and Blunted Speech Pattern: Clear Thought Content: positive for Intact Judgement: Fair Medications Medications Current Medications Acetaminophen (Acetaminophen 325 Mg Tablet) 975 mg PO Q6H PRN PRN Reason: Pain, Mild 1-3,fever,headache Amlodipine Besylate (Amlodipine Besylate 10 Mg Tablet) 10 mg PO DAILY [facility]; Protocol Last Admin: 10/19/24 09:50 Dose: 10 mg Artificial Tears (Artificial Tears 15 Ml Drops) 1 drop EYE-BOTH Q4H PRN PRN Reason: itching eyes Calcium Carbonate (Calcium Carbonate 750 Mg Tab.Chew) 750 mg PO Q4H PRN PRN Reason: Heartburn Dextrose (Dextrose 50 % 25 Gm/50 Ml Syringe) 25 gm IVPUSH Q15M PRN; Protocol PRN Reason: per Hypoglycemia Standing Ord. Enoxaparin Sodium (Enoxaparin Sodium 40 Mg/0.4 Ml Syringe) 40 mg SUBCUT Q24H [facility] Last Admin: 10/19/24 10:00 Dose: 40 mg Famotidine (Famotidine 20 Mg Tablet) 20 mg PO DAILY PRN PRN Reason: Heartburn Ferrous Sulfate (Ferrous Sulfate 324 Mg Tablet.Dr) 324 mg PO DAILY [facility] Last Admin: 10/19/24 09:47 Dose: 324 mg Folic Acid (Folic Acid 1 Mg Tablet) 1 mg PO DAILY [facility] Stop: 10/21/24 08:59 Last Admin: 10/19/24 09:52 Dose: 1 mg Furosemide (Furosemide 20 Mg Tablet) 20 mg PO DAILY [facility]; Protocol Last Admin: 10/19/24 09:53 Dose: 20 mg Glucose (Glucose Gel 15 Gm Gel..Gram.) 15 gm PO Q15M PRN; Protocol PRN Reason: per Hypoglycemia Standing Ord. Insulin Glargine (Insulin Glargine,Hum.Rec.Anlog 100 Unit/Ml 10 Ml Vial) 8 unit SUBCUT BEDTIME [facility] Last Admin: 10/18/24 20:21 Dose: 8 unit Insulin Glargine (Insulin Glargine,Hum.Rec.Anlog 100 Unit/Ml 10 Ml Vial) 10 unit SUBCUT DAILY [facility] Last Admin: 10/19/24 09:42 Dose: 10 unit Insulin Human Lispro (Insulin Lispro 100 Unit/Ml 3 Ml Vial) 0 unit SUBCUT QIDACHS [facility]; Protocol Last Admin: 10/19/24 10:11 Dose: Not Given Lacosamide (Lacosamide 100 Mg Tablet) 200 mg PO BID [facility] Last Admin: 10/19/24 09:48 Dose: 200 mg Lamotrigine (Lamotrigine 25 Mg Tablet) 75 mg PO BID [facility] Last Admin: 10/19/24 09:56 Dose: 75 mg Losartan Potassium (Losartan Potassium 25 Mg Tablet) 25 mg PO DAILY [facility]; Protocol Last Admin: 10/19/24 09:51 Dose: 25 mg Magnesium Hydroxide (Milk Of Magnesia 30 Ml Oral.Susp) 30 ml PO DAILY PRN PRN Reason: Constipation Melatonin (Melatonin 3 Mg Tablet) 6 mg PO BEDTIME PRN PRN Reason: Insomnia Meropenem (Meropenem 1 Gm Vial) 1 gm IVPUSH Q8H [facility] Last Admin: 10/19/24 10:27 Dose: 1 gm Morphine Sulfate (Morphine Sulfate 4 Mg/Ml Cartridge) 2 mg IVPUSH Q4H PRN; Protocol PRN Reason: Pain, Severe (Pain Scale 7-10) Multivitamins/Vitamin C (Multivitamin Tablet) 1 tab PO DAILY [facility] Stop: 10/21/24 08:59 Last Admin: 10/19/24 09:46 Dose: 1 tab Ondansetron HCl (Ondansetron Hcl 4 Mg/2 Ml Vial) 4 mg IVPUSH Q8H PRN PRN Reason: Nausea and Vomiting Oxcarbazepine (Oxcarbazepine 300 Mg Tablet) 600 mg PO BID [facility] Last Admin: 10/19/24 09:47 Dose: 600 mg Oxycodone HCl (Oxycodone Hcl Immed Release 5 Mg Tablet) 5 mg PO Q6H PRN PRN Reason: Pain, Moderate(Pain Scale 4-6) Pharmacy Consult (Consult Rx Etoh Phenob Im/Po) 1 each MISCELLANE ONCE PRN; Protocol PRN Reason: Consult order Pharmacy Consult (Consult Rx Vancomycin Dosing) 1 each MISCELLANE DAILY PRN PRN Reason: Consult order Phenobarbital (Phenobarbital 15 Mg Tablet) 45 mg PO BID [facility]; Protocol Stop: 10/20/24 09:01 Last Admin: 10/19/24 09:54 Dose: 45 mg Phenobarbital (Phenobarbital 15 Mg Tablet) 15 mg PO BID [facility]; Protocol Stop: 10/22/24 09:01 Phenobarbital (Phenobarbital 15 Mg Tablet) 15 mg PO DAILY [facility]; Protocol Stop: 10/24/24 09:01 Sodium Chloride (0.9 % Sodium Chloride Flush 3 Ml Syringe) 3 ml IVFLUSH QSHIFT [facility] Last Admin: 10/19/24 10:11 Dose: 3 ml Thiamine HCl (Thiamine Hcl 100 Mg Tablet) 100 mg PO DAILY [facility] Stop: 10/21/24 08:59 Last Admin: 10/19/24 09:50 Dose: 100 mg Allergies Allergies Allergy/AdvReac Type Severity Reaction Status Date / Time chlordiazepoxide Allergy Unknown Unknown Unverified 10/18/24 00:44 [From Librium] ibuprofen Allergy Unknown Unknown Unverified 10/18/24 00:44 Penicillins Allergy Unknown Unknown Unverified 10/18/24 00:44 levetiracetam [From Keppra] AdvReac Severe agitation Verified 10/17/24 23:40 Assessment & Plan Assessment & Plan (1) Alcohol use disorder: Status: Acute Code(s): F10.90 - Alcohol use, unspecified, uncomplicated Assessment and Plan: * no withdrawal sx noted or reported, pheno taper in place * declines additional resources--engaged in treatment with PCP office * next Vivitrol injection due in 2 weeks * no additional follow up indicated at this time Total time managing care of this patient today __35__ minutes. [facility] [place] Past Medical History Medical History Wernicke encephalopathy Alcohol withdrawal seizure Type 1 diabetes Alcohol dependence Seizure disorder HTN (hypertension) Social History Social History Household Members: Family Housing: Unknown / Unable to assess Patient Tobacco Use Status: Tobacco use Unknown service: No
[2024-10-19] MEDS: Insulin Lispro 100 UNIT/ML 3 ML VIAL SUBCUT ×3 (11:44→20:18)
[2024-10-19 12:40] LABS: Vancomycin Random 11.6 mcg/mL (15-20)
[2024-10-19 16:28] LABS: Glucose, Whole Blood 246 mg/dL (60-115)
[2024-10-19 20:17] LABS: Glucose, Whole Blood 277 mg/dL (60-115)
[2024-10-19] MEDS: Insulin Glargine,Hum.rec.anlog 100 UNIT/ML 10 ML VIAL 8 UNIT SUBCUT (20:17)
[2024-10-20] VITALS (7 sets, daily range): BP systolic 115–134; BP diastolic 68–82; PULSE 63–68; RESP 16–18; TEMP 36.4–37.1; O2SAT 99–100
[2024-10-20] MEDS: Meropenem 1 GM VIAL IVPUSH ×3 (02:14→16:45)
[2024-10-20 06:49] LABS: Anion Gap 13 (12-20); Blood Urea Nitrogen 6 mg/dL (9-16); Calcium 8.8 mg/dL (8.4-10.2); Carbon Dioxide 26 mmol/L (22-29); Chloride 100 mmol/L (96-108); Estimated Glomerular Filt Rate > 60; Glucose Random 93 mg/dL (60-115); Potassium 3.2 mmol/L (3.3-5.1); Sodium 136 mmol/L (135-145)
[2024-10-20 06:58] LABS: Hematocrit 40.1 % (42.0-52.0); Hemoglobin 13.1 g/dl (14.0-18.0); Mean Corpuscular HGB Conc 32.7 g/dl (31.0-36.0); Mean Corpuscular Hemoglobin 27.1 pg (27.0-33.0); Mean Corpuscular Volume 82.9 fL (80.0-98.0); Platelet Count 261 X10*3/uL (160-400); Red Blood Count 4.84 X10*6/uL (4.60-5.80); Red Cell Distribution Width 16.2 % (11.0-16.0); White Blood Count 7.3 X10*3/uL (4.8-10.8)
[2024-10-20 07:21] LABS: Glucose, Whole Blood 103 mg/dL (60-115)
[2024-10-20] MEDS: 0.9 % Sodium Chloride Flush 3 ML SYRINGE IVFLUSH ×3 (08:38→20:34)
[2024-10-20] MEDS: Insulin Glargine,Hum.rec.anlog 100 UNIT/ML 10 ML VIAL 10 UNIT SUBCUT (08:40)
[2024-10-20] MEDS: Lacosamide 100 MG TABLET 200 MG PO ×2 (08:41→20:32)
[2024-10-20] MEDS: PHENobarbitaL 15 MG TABLET 45 MG PO (08:41)
[2024-10-20] MEDS: lamoTRIgine 25 MG TABLET 75 MG PO ×2 (08:41→20:32)
[2024-10-20] MEDS: OXcarbazepine 300 MG TABLET 600 MG PO ×2 (08:42→20:33)
[2024-10-20] MEDS: Losartan Potassium 25 MG TABLET PO (08:42)
[2024-10-20] MEDS: Thiamine HCL 100 MG TABLET PO (08:42)
[2024-10-20] MEDS: Multivitamin TABLET 1 TAB PO (08:42)
[2024-10-20] MEDS: Folic Acid 1 MG TABLET PO (08:42)
[2024-10-20] MEDS: Ferrous Sulfate 324 MG TABLET.DR PO (08:42)
[2024-10-20] MEDS: amLODIPine Besylate 10 MG TABLET PO (08:42)
[2024-10-20] MEDS: Furosemide 20 MG TABLET PO (08:43)
[2024-10-20] MEDS: Enoxaparin Sodium 40 MG/0.4 ML SYRINGE SUBCUT (08:51)
--- NOTE | 2024-10-20 10:32 | P.PNIM_ITS ---
Subjective Subjective Date of Service: 10/20/24 Interval History: f/u on breakthrough seizure, alcohol withdrawal No further seizure and no sings of alcohol withdrawal Physical Exam 2 Vital Signs: Vital Signs: Last Vital Signs Temp 98.2 F 10/20/24 07:27 Pulse 65 10/20/24 07:27 Resp 18 10/20/24 07:27 BP 127/71 10/20/24 07:27 Pulse Ox 99 10/20/24 07:27 O2 Del Method Room Air 10/20/24 07:27 BMI result Body Mass Index 27.5 Objective Data Active Medications Acetaminophen (Acetaminophen 325 Mg Tablet) 975 mg PO Q6H PRN PRN Reason: Pain, Mild 1-3,fever,headache Amlodipine Besylate (Amlodipine Besylate 10 Mg Tablet) 10 mg PO DAILY [facility]; Protocol Last Admin: 10/20/24 08:42 Dose: 10 mg Documented By: ZOHAIB Artificial Tears (Artificial Tears 15 Ml Drops) 1 drop EYE-BOTH Q4H PRN PRN Reason: itching eyes Calcium Carbonate (Calcium Carbonate 750 Mg Tab.Chew) 750 mg PO Q4H PRN PRN Reason: Heartburn Dextrose (Dextrose 50 % 25 Gm/50 Ml Syringe) 25 gm IVPUSH Q15M PRN; Protocol PRN Reason: per Hypoglycemia Standing Ord. Enoxaparin Sodium (Enoxaparin Sodium 40 Mg/0.4 Ml Syringe) 40 mg SUBCUT Q24H [facility] Last Admin: 10/20/24 08:51 Dose: 40 mg Documented By: ZOHAIB Famotidine (Famotidine 20 Mg Tablet) 20 mg PO DAILY PRN PRN Reason: Heartburn Ferrous Sulfate (Ferrous Sulfate 324 Mg Tablet.Dr) 324 mg PO DAILY [facility] Last Admin: 10/20/24 08:42 Dose: 324 mg Documented By: ZOHAIB Folic Acid (Folic Acid 1 Mg Tablet) 1 mg PO DAILY [facility] Stop: 10/21/24 08:59 Last Admin: 10/20/24 08:42 Dose: 1 mg Documented By: ZOHAIB Furosemide (Furosemide 20 Mg Tablet) 20 mg PO DAILY [facility]; Protocol Last Admin: 10/20/24 08:43 Dose: 20 mg Documented By: ZOHAIB Glucose (Glucose Gel 15 Gm Gel..Gram.) 15 gm PO Q15M PRN; Protocol PRN Reason: per Hypoglycemia Standing Ord. Insulin Glargine (Insulin Glargine,Hum.Rec.Anlog 100 Unit/Ml 10 Ml Vial) 8 unit SUBCUT BEDTIME [facility] Last Admin: 10/19/24 20:17 Dose: 8 unit Documented By: MACARIO Insulin Glargine (Insulin Glargine,Hum.Rec.Anlog 100 Unit/Ml 10 Ml Vial) 10 unit SUBCUT DAILY [facility] Last Admin: 10/20/24 08:40 Dose: 10 unit Documented By: ZOHAIB Insulin Human Lispro (Insulin Lispro 100 Unit/Ml 3 Ml Vial) 0 unit SUBCUT QIDACHS [facility]; Protocol Last Admin: 10/20/24 08:52 Dose: Not Given Documented By: ZOHAIB Non-Admin Reason: No Insulin Coverage Lacosamide (Lacosamide 100 Mg Tablet) 200 mg PO BID [facility] Last Admin: 10/20/24 08:41 Dose: 200 mg Documented By: ZOHAIB Lamotrigine (Lamotrigine 25 Mg Tablet) 75 mg PO BID [facility] Last Admin: 10/20/24 08:41 Dose: 75 mg Documented By: ZOHAIB Losartan Potassium (Losartan Potassium 25 Mg Tablet) 25 mg PO DAILY [facility]; Protocol Last Admin: 10/20/24 08:42 Dose: 25 mg Documented By: ZOHAIB Magnesium Hydroxide (Milk Of Magnesia 30 Ml Oral.Susp) 30 ml PO DAILY PRN PRN Reason: Constipation Melatonin (Melatonin 3 Mg Tablet) 6 mg PO BEDTIME PRN PRN Reason: Insomnia Meropenem (Meropenem 1 Gm Vial) 1 gm IVPUSH Q8H [facility] Last Admin: 10/20/24 08:38 Dose: 1 gm Documented By: ZOHAIB Comments: no reaction on previous admin. Morphine Sulfate (Morphine Sulfate 4 Mg/Ml Cartridge) 2 mg IVPUSH Q4H PRN; Protocol PRN Reason: Pain, Severe (Pain Scale 7-10) Multivitamins/Vitamin C (Multivitamin Tablet) 1 tab PO DAILY [facility] Stop: 10/21/24 08:59 Last Admin: 10/20/24 08:42 Dose: 1 tab Documented By: ZOHAIB Ondansetron HCl (Ondansetron Hcl 4 Mg/2 Ml Vial) 4 mg IVPUSH Q8H PRN PRN Reason: Nausea and Vomiting Oxcarbazepine (Oxcarbazepine 300 Mg Tablet) 600 mg PO BID [facility] Last Admin: 10/20/24 08:42 Dose: 600 mg Documented By: ZOHAIB Oxycodone HCl (Oxycodone Hcl Immed Release 5 Mg Tablet) 5 mg PO Q6H PRN PRN Reason: Pain, Moderate(Pain Scale 4-6) Pharmacy Consult (Consult Rx Etoh Phenob Im/Po) 1 each MISCELLANE ONCE PRN; Protocol PRN Reason: Consult order Pharmacy Consult (Consult Rx Vancomycin Dosing) 1 each MISCELLANE DAILY PRN PRN Reason: Consult order Phenobarbital (Phenobarbital 15 Mg Tablet) 15 mg PO BID [facility]; Protocol Stop: 10/22/24 09:01 Phenobarbital (Phenobarbital 15 Mg Tablet) 15 mg PO DAILY [facility]; Protocol Stop: 10/24/24 09:01 Sodium Chloride (0.9 % Sodium Chloride Flush 3 Ml Syringe) 3 ml IVFLUSH QSHIFT [facility] Last Admin: 10/20/24 08:38 Dose: 3 ml Documented By: ZOHAIB Thiamine HCl (Thiamine Hcl 100 Mg Tablet) 100 mg PO DAILY [facility] Stop: 10/21/24 08:59 Last Admin: 10/20/24 08:42 Dose: 100 mg Documented By: ZOHAIB Labs 10/20/24 06:04 10/20/24 06:04 Labs: Laboratory Results - last 24 hr 10/19/24 10/19/24 10/19/24 11:01 12:16 16:18 MCV MCH MCHC RDW Plt Count MPV Absolute Nucleated RBC Nucleated RBC % (auto) Anion Gap Estim Creat Clear Calc Estimated GFR POC Glucose 381 H* 246 H Random Glucose Calcium Random Vancomycin 11.6 L 10/19/24 10/20/24 10/20/24 20:09 06:04 07:13 MCV 82.9 MCH 27.1 MCHC 32.7 RDW 16.2 H Plt Count 261 MPV 10.0 Absolute Nucleated RBC 0.000 Nucleated RBC % (auto) 0.0 Anion Gap 13 Estim Creat Clear Calc 120.0 Estimated GFR > 60 POC Glucose 277 H 103 Random Glucose 93 Calcium 8.8 Random Vancomycin Microbiology Microbiology Results: Microbiology 10/19/24 05:45 Blood Culture - Preliminary Blood - Venous No growth after 24 hours. Assessment and Plan (1) Alcohol dependence: Status: Acute (2) Dry gangrene: Status: Acute (3) Seizure disorder: Status: Acute (4) Acute encephalopathy: Status: Acute Plan pt is a 44 yo male with a pmhx significant for alcohol use disorder with a hx of etoh withdrawal and wernicke's, T2DM with recurrent DKA, HTN, and seizure disorder, who presented to the ED today due to 2 seizures earlier, witnessed by the pt's mother. the patient is unable to give a history at this time. records from [facility] were printed in the ED with hisotry of recent etoh withdrawal seizure and wernicke's encephalopathy. seizure with acute encephalopathy, likely triggered by etoh withdrawal but also has underlying seizure d/o probably not compliant with meds continue Vimpat, lamictal and trileptal continue phenobarbital for alcohol withdrawal neurology consult eeg when available. seizure precaution Alcohol withdrawal, no sings of withdrawal at this time monitor ciwa phenobarbital protocol thiamine and folate replacement mild leukocytosis, likely reactive, resolved. diabetes with hyperglycemia, no dka IVF continue Lantus 10 in am and 8 at night and adjust as needed, and Sliding scale, diabetic diet. dry gangrene L great toe suspicious MRI Findings concerning for osteomyelitis of the 1st distal tuft. dc vanco, flagyl, and cefepim. Add meropenem. ID consult. Vascular surgery consult alcohol use disorder addiction med consult as above HTN continue home meds seizure disorder continue home meds Full code VTE prophy: lovenox Pt iwht seizure and encephalopathy, likely etoh withdrawal, complicated by hyperglycemia and dry gangrene, requiring admission for at least 2 midnight stay for IV abx and monitoring. Quality Stroke Does the patient have a stroke diagnosis?: No VTE Prior VTE?: No VTE Risk Level:: Medical - moderate - high VTE Device Contraindication: Treatment Not Indicated VTE Drug Contraindication: N/A - Med Ordered
--- NOTE | 2024-10-20 10:36 | MHC.CM.PN ---
EMR REVIEWED, PER HOSPITALIST PT MAY NEED LIFE SCIENCE RESEARCH ASSISTANT IV ABX FOR OSTEO OF TOE HOWEVER VASCULAR CONSULT PENDING, ANTIC PT WILL HAVE ANGIO/AMP WHILE INPT, CM WILL CONT TO FOLLOW DC NEEDS.
[2024-10-20] MEDS: Potassium Chloride ER 20 MEQ TAB.ER.PRT 40 MEQ PO (11:22)
[2024-10-20 11:36] LABS: Glucose, Whole Blood 282 mg/dL (60-115)
--- NOTE | 2024-10-20 11:46 | P.CNNE_ITS ---
History of Present Illness Data of Consult Service Date: 10/20/24 Primary Care Provider: ARIN Dodson Reason for consult: Seizure disorder 44 years old man who apparently has history of alcoholism and its related complications including alcoholic dementia and seizure disorder. He was brought to hospital after he had couple of seizures though details were unclear. His blood sugar was also high. It was not clear if he was taking his medicines on regular basis. When I asked him why he was here in hospital, he said he did not know and he woke up in the hospital. Review of Systems 2 Review of Systems: No recent cold or flu-like illness PMFSH Past Medical History Medical History Wernicke encephalopathy Alcohol withdrawal seizure Type 1 diabetes Alcohol dependence Seizure disorder HTN (hypertension) Social History Social History Household Members: Family Housing: Unknown / Unable to assess Patient Tobacco Use Status: Tobacco use Unknown service: No Meds Allergies Allergy/AdvReac Type Severity Reaction Status Date / Time chlordiazepoxide Allergy Unknown Nausea Verified 10/19/24 15:35 [From Librium] Penicillins Allergy Unknown Unknown Verified 10/19/24 15:35 levetiracetam [From Keppra] AdvReac Severe agitation Verified 10/19/24 15:35 Active Medications: Current Medications Acetaminophen (Acetaminophen 325 Mg Tablet) 975 mg PO Q6H PRN PRN Reason: Pain, Mild 1-3,fever,headache Amlodipine Besylate (Amlodipine Besylate 10 Mg Tablet) 10 mg PO DAILY [facility]; Protocol Last Admin: 10/20/24 08:42 Dose: 10 mg Artificial Tears (Artificial Tears 15 Ml Drops) 1 drop EYE-BOTH Q4H PRN PRN Reason: itching eyes Calcium Carbonate (Calcium Carbonate 750 Mg Tab.Chew) 750 mg PO Q4H PRN PRN Reason: Heartburn Dextrose (Dextrose 50 % 25 Gm/50 Ml Syringe) 25 gm IVPUSH Q15M PRN; Protocol PRN Reason: per Hypoglycemia Standing Ord. Enoxaparin Sodium (Enoxaparin Sodium 40 Mg/0.4 Ml Syringe) 40 mg SUBCUT Q24H [facility] Last Admin: 10/20/24 08:51 Dose: 40 mg Famotidine (Famotidine 20 Mg Tablet) 20 mg PO DAILY PRN PRN Reason: Heartburn Ferrous Sulfate (Ferrous Sulfate 324 Mg Tablet.) 324 mg PO DAILY [facility] Last Admin: 10/20/24 08:42 Dose: 324 mg Folic Acid (Folic Acid 1 Mg Tablet) 1 mg PO DAILY [facility] Stop: 10/21/24 08:59 Last Admin: 10/20/24 08:42 Dose: 1 mg Furosemide (Furosemide 20 Mg Tablet) 20 mg PO DAILY [facility]; Protocol Last Admin: 10/20/24 08:43 Dose: 20 mg Glucose (Glucose Gel 15 Gm Gel..Gram.) 15 gm PO Q15M PRN; Protocol PRN Reason: per Hypoglycemia Standing Ord. Insulin Glargine (Insulin Glargine,Hum.Rec.Anlog 100 Unit/Ml 10 Ml Vial) 8 unit SUBCUT BEDTIME [facility] Last Admin: 10/19/24 20:17 Dose: 8 unit Insulin Glargine (Insulin Glargine,Hum.Rec.Anlog 100 Unit/Ml 10 Ml Vial) 10 unit SUBCUT DAILY [facility] Last Admin: 10/20/24 08:40 Dose: 10 unit Insulin Human Lispro (Insulin Lispro 100 Unit/Ml 3 Ml Vial) 0 unit SUBCUT QIDACHS [facility]; Protocol Last Admin: 10/20/24 08:52 Dose: Not Given Lacosamide (Lacosamide 100 Mg Tablet) 200 mg PO BID [facility] Last Admin: 10/20/24 08:41 Dose: 200 mg Lamotrigine (Lamotrigine 25 Mg Tablet) 75 mg PO BID [facility] Last Admin: 10/20/24 08:41 Dose: 75 mg Losartan Potassium (Losartan Potassium 25 Mg Tablet) 25 mg PO DAILY [facility]; Protocol Last Admin: 10/20/24 08:42 Dose: 25 mg Magnesium Hydroxide (Milk Of Magnesia 30 Ml Oral.Susp) 30 ml PO DAILY PRN PRN Reason: Constipation Melatonin (Melatonin 3 Mg Tablet) 6 mg PO BEDTIME PRN PRN Reason: Insomnia Meropenem (Meropenem 1 Gm Vial) 1 gm IVPUSH Q8H [facility] Last Admin: 10/20/24 08:38 Dose: 1 gm Morphine Sulfate (Morphine Sulfate 4 Mg/Ml Cartridge) 2 mg IVPUSH Q4H PRN; Protocol PRN Reason: Pain, Severe (Pain Scale 7-10) Multivitamins/Vitamin C (Multivitamin Tablet) 1 tab PO DAILY [facility] Stop: 10/21/24 08:59 Last Admin: 10/20/24 08:42 Dose: 1 tab Ondansetron HCl (Ondansetron Hcl 4 Mg/2 Ml Vial) 4 mg IVPUSH Q8H PRN PRN Reason: Nausea and Vomiting Oxcarbazepine (Oxcarbazepine 300 Mg Tablet) 600 mg PO BID [facility] Last Admin: 10/20/24 08:42 Dose: 600 mg Oxycodone HCl (Oxycodone Hcl Immed Release 5 Mg Tablet) 5 mg PO Q6H PRN PRN Reason: Pain, Moderate(Pain Scale 4-6) Pharmacy Consult (Consult Rx Etoh Phenob Im/Po) 1 each MISCELLANE ONCE PRN; Protocol PRN Reason: Consult order Pharmacy Consult (Consult Rx Vancomycin Dosing) 1 each MISCELLANE DAILY PRN PRN Reason: Consult order Phenobarbital (Phenobarbital 15 Mg Tablet) 15 mg PO BID [facility]; Protocol Stop: 10/22/24 09:01 Phenobarbital (Phenobarbital 15 Mg Tablet) 15 mg PO DAILY [facility]; Protocol Stop: 10/24/24 09:01 Sodium Chloride (0.9 % Sodium Chloride Flush 3 Ml Syringe) 3 ml IVFLUSH [facility] Last Admin: 10/20/24 08:38 Dose: 3 ml Thiamine HCl (Thiamine Hcl 100 Mg Tablet) 100 mg PO DAILY [facility] Stop: 10/21/24 08:59 Last Admin: 10/20/24 08:42 Dose: 100 mg Home Medications ?Medication ?Instructions ?Recorded ?Confirmed ?Last Taken ?Type amlodipine 10 mg tablet 10 mg PO DAILY 10/18/24 10/18/24 Unknown History famotidine 20 mg tablet 20 mg PO DAILY PRN Heartburn 10/18/24 10/18/24 Unknown History ferrous gluconate 324 mg (38 mg 324 mg PO DAILY 10/18/24 10/18/24 Unknown History iron) tablet furosemide 20 mg tablet 20 mg PO DAILY 10/18/24 10/18/24 Unknown History insulin glargine 100 unit/mL 8 unit subcut BEDTIME 10/18/24 10/18/24 Unknown History subcutaneous solution (Lantus U-100 Insulin) insulin lispro 100 unit/mL See Protocol subcut TID 10/18/24 10/18/24 Unknown History subcutaneous cartridge (Humalog U-100 Insulin) lacosamide 200 mg tablet 200 mg PO BID 10/18/24 10/18/24 Unknown History lamotrigine 25 mg tablet 75 mg PO BID 10/18/24 10/18/24 Unknown History losartan 25 mg tablet 25 mg PO DAILY 10/18/24 10/18/24 Unknown History naltrexone microspheres 380 mg 380 mg IM Q28D 10/18/24 10/18/24 09/17/24 History intramuscular suspension,extended release (Vivitrol) nicotine (polacrilex) 2 mg buccal 2 mg mucous membrane Q1H PRN 10/18/24 10/18/24 Unknown History lozenge Nicotine Cravings oxcarbazepine 600 mg tablet 600 mg PO BID 10/18/24 10/18/24 Unknown History vitamin B complex-folic acid 0.4 1 tab PO DAILY 10/18/24 10/18/24 Unknown History mg tablet (B Complex 1 (with folic acid)) Physical Exam 2 Vital Signs: Vital Signs: Last Vital Signs Temp 98.7 F 10/20/24 11:21 Pulse 68 10/20/24 11:21 Resp 18 10/20/24 11:21 BP 115/76 10/20/24 11:21 Pulse Ox 99 10/20/24 11:21 O2 Del Method Room Air 10/20/24 11:21 BMI result Body Mass Index 27.5 Neuro: Other: He is alert and awake with normal spontaneity of speech fluency comprehension and flat affect. Face is symmetrical. Visual gibbs are full. Deep tendon reflexes are absent with flexor plantars. Speech is normal. Results Labs 10/20/24 06:04 10/20/24 06:04 Labs: Short CBC 10/20/24 Range/Units 06:04 WBC 7.3 (4.8-10.8) X10*3/uL Hgb 13.1 L (14.0-18.0) g/dl Hct 40.1 L (42.0-52.0) % Plt Count 261 (160-400) X10*3/uL BMP 10/20/24 06:04 Sodium 136 Potassium 3.2 L Chloride 100 Carbon Dioxide 26 BUN 6 L Creatinine 0.[address] revealed mild diffuse cerebral and cerebellar atrophy. Microbiology Microbiology Results: Microbiology 10/19/24 05:45 Blood - Venous Blood Culture - Preliminary No growth after 24 hours. Assessment and Plan (1) Seizure: Status: Acute 44 years old man who probably has chronic alcoholism, alcoholic dementia, and seizure disorder. Because of multiple reasons, he probably was not able to comply with his medicine regimen and might not have been taking medicines. In addition he was always at risk of drinking alcohol again. In this scenario, when blood sugar was also high, breakthrough seizures were common. Mainstay of management is proper place of residence with supervision or regular [employer]IC[employer] visits to make sure he was taking medicines on regular basis. Otherwise, I would continue his baseline seizure medicine regimen, which probably is prescribed by a neurologist. He can continue follow-up with his and neurologist. A dose of multivitamin and folic acid daily is also recommended. Procedures Date of Service Date of Service: 10/20/24
--- NOTE | 2024-10-20 11:47 | P.CONGS_ITS ---
<Statement entered by Trevor Sanford MD - 10/21/24 08:50> I have seen and evaluated the patient and agree with history, findings, assessment and plan documented by Melita Ann PA-c. In short patient has left great toe gangrene. At the current time it is dry and stable. Noninvasive testing was within normal limits an CONRAD of 1.0. I was unable to clearly appreciate dorsalis pedis pulses probably due to his longstanding history of diabetes. At the current time it does appear to be perfusing well. I would like the acute episodes of his seizures to clear up. At the current time he is stable from a vascular standpoint. I would like to see him as an outpatient he can follow up with us in approximately 2 weeks upon discharge. Thank you for allowing us to assist in his care. History of Present Illness Consult details Consult date: 10/20/24 Narrative: We were consulted for Henok, for concerns of osteo, left great toe wound. He presented to the ER on 10/17 due to 2 seizures at home with hyperglycemia >400. The pt is known to have erractic behaviors after seizures as well. His BG on arrival was 417. He has a medical history significant for DM I poorly controlled, seizure disorder, AUD, alcohol withdrawal seizures, HTN, and Wernicke's encephalopathy. He was found to have marrow edema of the 1st distal phalanx with cortical irregularity of the tuft concerning for osteo with surrounding soft tissue edema on foot MRI. The pt states he has been seen by [facility] for this wound he has had for over a month. He states initially, over a month ago, he stubbed/hit his toe and it turned into an ulcer/wound. He states it is not painful; however, the space between the first and second toes are. He states his blood sugars at home range from 100s-300s. He states his diet is not great. He states he does drink 6-12 beers a day. Review of Systems 2 Constitutional: Constitutional: Reports as per HPI and Denies weakness ENT: Reports Normal hearing present and Denies dizziness Cardiovascular: Cardiovascular: Reports as per HPI, Denies chest pain, Denies chest pain at rest, Denies chest pain with activity, Denies dyspnea and Denies dyspnea on exertion Respiratory: Respiratory: Reports as per HPI, Denies cough, Denies dyspnea and Denies dyspnea on exertion Gastrointestinal: Gastrointestinal: Reports as per HPI, Denies abdominal pain, Denies nausea and Denies vomiting Musculoskeletal: Musculoskeletal: Denies numbness Integumentary/Breasts: Skin/Breast: Reports as per HPI, Denies erythema and Denies wounds Neurologic: Reports Normal hearing present, Denies dizziness, Denies numbness, Denies Sensory deficit (Neuro) and Denies weakness Psychiatric: Psychiatric: Reports no additional psychiatric complaints Endocrine: Endocrine: Reports no additional endocrine complaints [facility] Past Medical History Medical History (Updated 10/20/24 @ 11:58 by Melita Ann PA-C) Wernicke encephalopathy Alcohol withdrawal seizure Type 1 diabetes Alcohol dependence Seizure disorder HTN (hypertension) Social History Social History Household Members: Family Housing: Unknown / Unable to assess Patient Tobacco Use Status: Tobacco use Unknown service: No Meds Allergies Allergy/AdvReac Type Severity Reaction Status Date / Time chlordiazepoxide Allergy Unknown Nausea Verified 10/19/24 15:35 [From Librium] Penicillins Allergy Unknown Unknown Verified 10/19/24 15:35 levetiracetam [From Keppra] AdvReac Severe agitation Verified 10/19/24 15:35 Active Medications: Current Medications Acetaminophen (Acetaminophen 325 Mg Tablet) 975 mg PO Q6H PRN PRN Reason: Pain, Mild 1-3,fever,headache Amlodipine Besylate (Amlodipine Besylate 10 Mg Tablet) 10 mg PO DAILY [facility]; Protocol Last Admin: 10/20/24 08:42 Dose: 10 mg Artificial Tears (Artificial Tears 15 Ml Drops) 1 drop EYE-BOTH Q4H PRN PRN Reason: itching eyes Calcium Carbonate (Calcium Carbonate 750 Mg Tab.Chew) 750 mg PO Q4H PRN PRN Reason: Heartburn Dextrose (Dextrose 50 % 25 Gm/50 Ml Syringe) 25 gm IVPUSH Q15M PRN; Protocol PRN Reason: per Hypoglycemia Standing Ord. Enoxaparin Sodium (Enoxaparin Sodium 40 Mg/0.4 Ml Syringe) 40 mg SUBCUT Q24H [facility] Last Admin: 10/20/24 08:51 Dose: 40 mg Famotidine (Famotidine 20 Mg Tablet) 20 mg PO DAILY PRN PRN Reason: Heartburn Ferrous Sulfate (Ferrous Sulfate 324 Mg Tablet.Dr) 324 mg PO DAILY [facility] Last Admin: 10/20/24 08:42 Dose: 324 mg Folic Acid (Folic Acid 1 Mg Tablet) 1 mg PO DAILY [facility] Stop: 10/21/24 08:59 Last Admin: 10/20/24 08:42 Dose: 1 mg Furosemide (Furosemide 20 Mg Tablet) 20 mg PO DAILY [facility]; Protocol Last Admin: 10/20/24 08:43 Dose: 20 mg Glucose (Glucose Gel 15 Gm Gel..Gram.) 15 gm PO Q15M PRN; Protocol PRN Reason: per Hypoglycemia Standing Ord. Insulin Glargine (Insulin Glargine,Hum.Rec.Anlog 100 Unit/Ml 10 Ml Vial) 8 unit SUBCUT BEDTIME [facility] Last Admin: 10/19/24 20:17 Dose: 8 unit Insulin Glargine (Insulin Glargine,Hum.Rec.Anlog 100 Unit/Ml 10 Ml Vial) 10 unit SUBCUT DAILY [facility] Last Admin: 10/20/24 08:40 Dose: 10 unit Insulin Human Lispro (Insulin Lispro 100 Unit/Ml 3 Ml Vial) 0 unit SUBCUT QIDACHS [facility]; Protocol Last Admin: 10/20/24 08:52 Dose: Not Given Lacosamide (Lacosamide 100 Mg Tablet) 200 mg PO BID [facility] Last Admin: 10/20/24 08:41 Dose: 200 mg Lamotrigine (Lamotrigine 25 Mg Tablet) 75 mg PO BID [facility] Last Admin: 10/20/24 08:41 Dose: 75 mg Losartan Potassium (Losartan Potassium 25 Mg Tablet) 25 mg PO DAILY [facility]; Protocol Last Admin: 10/20/24 08:42 Dose: 25 mg Magnesium Hydroxide (Milk Of Magnesia 30 Ml Oral.Susp) 30 ml PO DAILY PRN PRN Reason: Constipation Melatonin (Melatonin 3 Mg Tablet) 6 mg PO BEDTIME PRN PRN Reason: Insomnia Meropenem (Meropenem 1 Gm Vial) 1 gm IVPUSH Q8H [facility] Last Admin: 10/20/24 08:38 Dose: 1 gm Morphine Sulfate (Morphine Sulfate 4 Mg/Ml Cartridge) 2 mg IVPUSH Q4H PRN; Protocol PRN Reason: Pain, Severe (Pain Scale 7-10) Multivitamins/Vitamin C (Multivitamin Tablet) 1 tab PO DAILY [facility] Stop: 10/21/24 08:59 Last Admin: 10/20/24 08:42 Dose: 1 tab Ondansetron HCl (Ondansetron Hcl 4 Mg/2 Ml Vial) 4 mg IVPUSH Q8H PRN PRN Reason: Nausea and Vomiting Oxcarbazepine (Oxcarbazepine 300 Mg Tablet) 600 mg PO BID [facility] Last Admin: 10/20/24 08:42 Dose: 600 mg Oxycodone HCl (Oxycodone Hcl Immed Release 5 Mg Tablet) 5 mg PO Q6H PRN PRN Reason: Pain, Moderate(Pain Scale 4-6) Pharmacy Consult (Consult Rx Etoh Phenob Im/Po) 1 each MISCELLANE ONCE PRN; Protocol PRN Reason: Consult order Pharmacy Consult (Consult Rx Vancomycin Dosing) 1 each MISCELLANE DAILY PRN PRN Reason: Consult order Phenobarbital (Phenobarbital 15 Mg Tablet) 15 mg PO BID [facility]; Protocol Stop: 10/22/24 09:01 Phenobarbital (Phenobarbital 15 Mg Tablet) 15 mg PO DAILY [facility]; Protocol Stop: 10/24/24 09:01 Sodium Chloride (0.9 % Sodium Chloride Flush 3 Ml Syringe) [facility] Last Admin: 10/20/24 08:38 Dose: 3 ml Thiamine HCl (Thiamine Hcl 100 Mg Tablet) 100 mg PO DAILY [facility] Stop: 10/21/24 08:59 Last Admin: 10/20/24 08:42 Dose: 100 mg Home Medications ?Medication ?Instructions ?Recorded ?Confirmed ?Last Taken ?Type amlodipine 10 mg tablet 10 mg PO DAILY 10/18/24 10/18/24 Unknown History famotidine 20 mg tablet 20 mg PO DAILY PRN Heartburn 10/18/24 10/18/24 Unknown History ferrous gluconate 324 mg (38 mg 324 mg PO DAILY 10/18/24 10/18/24 Unknown History iron) tablet furosemide 20 mg tablet 20 mg PO DAILY 10/18/24 10/18/24 Unknown History insulin glargine 100 unit/mL 8 unit subcut BEDTIME 10/18/24 10/18/24 Unknown History subcutaneous solution (Lantus U-100 Insulin) insulin lispro 100 unit/mL See Protocol subcut TID 10/18/24 10/18/24 Unknown History subcutaneous cartridge (Humalog U-100 Insulin) lacosamide 200 mg tablet 200 mg PO BID 10/18/24 10/18/24 Unknown History lamotrigine 25 mg tablet 75 mg PO BID 10/18/24 10/18/24 Unknown History losartan 25 mg tablet 25 mg PO DAILY 10/18/24 10/18/24 Unknown History naltrexone microspheres 380 mg 380 mg IM Q28D 10/18/24 10/18/24 09/17/24 History intramuscular suspension,extended release (Vivitrol) nicotine (polacrilex) 2 mg buccal 2 mg mucous membrane Q1H PRN 10/18/24 10/18/24 Unknown History lozenge Nicotine Cravings oxcarbazepine 600 mg tablet 600 mg PO BID 10/18/24 10/18/24 Unknown History vitamin B complex-folic acid 0.4 1 tab PO DAILY 10/18/24 10/18/24 Unknown History mg tablet (B Complex 1 (with folic acid)) Physical Exam 2 Vital Signs: Vital Signs: Last Vital Signs Temp 98.7 F 10/20/24 11:21 Pulse 68 10/20/24 11:21 Resp 18 10/20/24 11:21 BP 115/76 10/20/24 11:21 Pulse Ox 99 10/20/24 11:21 O2 Del Method Room Air 10/20/24 11:21 BMI result Body Mass Index 27.5 Const: General: comfortable and no acute distress O rientation/consciousness: patient oriented x3 HEENT: Ears: hearing grossly normal bilaterally Resp: Effort & Inspection: normal respiratory effort and able to speak in complete sentences Auscultation: clear to auscultation bilaterally Cardio: Rate: regular rate Rhythm: regular rhythm Heart sounds: S1 normal heart sound present and S2 normal heart sound present Bruits: no abdominal aortic bruits, no carotid bruits, no femoral bruits and no renal bruits GI: Palpation (GI): No Abdominal aortic bruit present Neuro: General: patient oriented x3 Cranial nerves: Yes Normal hearing present Sensory Exam: No Sensory deficit (Neuro) Extrem: Other: Left great toe: dry eschar and scabbing noted to the tip of the toe. Painful to the medial aspect of the toe, inbetween the 1st and 2nd toes. Toenail is thick and wound ends just before the nailbed. Left 2nd toe: small closed ulceration noted on the dorsal aspect of the toe, just below the toenail. Not painful to palpation. Left lower extremity: faint but palpable DP pulse. Foot/leg warm to the touch. Trace peripheral edema noted. Both feet/lower legs warm to the touch. Results Labs 10/20/24 06:04 10/20/24 06:04 Labs: Abnormal lab results 10/19/24 10/19/24 10/19/24 Range/Units 12:16 16:18 20:09 Hgb (14.0-18.0) g/dl Hct (42.0-52.0) % RDW (11.0-16.0) % Potassium (3.3-5.1) mmol/L BUN (9-16) mg/dL POC Glucose 246 H 277 H (60-115) mg/dL Random Vancomycin 11.6 L (15-20) mcg/mL 10/20/24 10/20/24 Range/Units 06:04 11:01 Hgb 13.1 L (14.0-18.0) g/dl Hct 40.1 L (42.0-52.0) % RDW 16.2 H (11.0-16.0) % Potassium 3.2 L (3.3-5.1) mmol/L BUN 6 L (9-16) mg/dL POC Glucose 282 H (60-115) mg/dL Random Vancomycin (15-20) mcg/mL Short CBC 10/20/24 Range/Units 06:04 WBC 7.3 (4.8-10.8) X10*3/uL Hgb 13.1 L (14.0-18.0) g/dl Hct 40.1 L (42.0-52.0) % Plt Count 261 (160-400) X10*3/uL BMP 10/20/24 06:04 Sodium 136 Potassium 3.2 L Chloride 100 Carbon Dioxide 26 BUN 6 L Creatinine 0.76 Calcium 8.8 Urine 10/17/24 Range/Units 19:33 Urine Color Yellow Urine Appearance Clear Urine pH 5.5 (5.0-9.0) Ur Specific [place] 1.025 (1.005-1.025) Urine Protein Negative (Neg-Trace) mg/dL Urine Glucose (UA) >=1000 H (Negative) mg/dL All other labs normal. Assessment and Plan (1) Diabetic ulcer of toe: Qualifiers: Diabetes mellitus type: type 1 Laterality: left Non-pressure ulcer stage: unspecified non-pressure ulcer stage Qualified Code(s): E10.621 - Type 1 diabetes mellitus with foot ulcer; L97.529 - Non-pressure chronic ulcer of other part of left foot with unspecified severity Status: Acute Plan We were consulted for Henok, for concerns of a diabetic wound on the left great toe. He has been seeing [facility]. On his most recent visit (pt not sure of the date) he was given Abx and Ibuprofen; he states they are just keeping it clean and applying Iodine. The foot MRI is notable for osteo of the 1st distal phalanx with surrounding soft tissue edema. He does have faint but palpable DP pulses. We would recommend betadine and then wrap daily for wound care. We would continue with IV Abx for osteo. Tight blood sugar control will help with healing as well. We discussed with the pt the importance of healthy, well balanced meals with protein and vegetables. We will continue to monitor. If there are any questions or concerns, please do not hesitate to reach out to us. Procedures Date of Service Date of Service: 10/20/24
--- NOTE | 2024-10-20 12:09 | HO.WOUND ---
Wound Consult: Initial yr old? admitted to [facility] on 02/07/24 - See progress notes and H&P for detailed history.? Wound consult placed for .? Patient agreeable to assessment and photo documentation.? Left Great Toe Wound Etiology: ?Diabetic Wound Measurements: 2cm x 3cm x 0.2cm Wound Bed: dry stable black eschar Drainage / Odor: None noted Edges: ? dry callused Jennifer wound: ?Mild pink erythema No Induration, Fluctuance or Warmth noted Pain: pain to great toe Goals of Treatment: ? Betadine to keep dry and stable - monitor blood sugar control Recommendations: Left Great Toe - Cleanse with Betadine allow to dry. Apply skin prep in webspace between toes, place 2x2 dry gauze and dry dressing to protect from environment. Maintain blood glucose levels per Providers order. Recommend Dr. Sanford Vascular Surgeon for outpatient follow up.? His office is located at [address] [place] [address] [address], [place] [address], call for an appointment at time of discharge [phone] Re-consult wound care Nurse for wound deterioration or wound changes.
[2024-10-20] MEDS: Insulin Lispro 100 UNIT/ML 3 ML VIAL SUBCUT ×3 (12:23→23:42)
[2024-10-20 15:13] LABS: Glucose, Whole Blood 218 mg/dL (60-115)
[2024-10-20] MEDS: PHENobarbitaL 15 MG TABLET PO (20:33)
[2024-10-20 20:43] LABS: Glucose, Whole Blood 165 mg/dL (60-115)
[2024-10-20] MEDS: Insulin Glargine,Hum.rec.anlog 100 UNIT/ML 10 ML VIAL 8 UNIT SUBCUT (23:43)
[2024-10-21] MEDS: Meropenem 1 GM VIAL IVPUSH ×3 (02:15→16:00)
[2024-10-21 03:26] VITALS: BP 114/67; PULSE 57; RESP 16; TEMP 36.2; O2SAT 98
[2024-10-21 07:19] VITALS: BP 115/67; PULSE 60; RESP 18; TEMP 36.6; O2SAT 95
[2024-10-21 07:36] LABS: Glucose, Whole Blood 126 mg/dL (60-115)
[2024-10-21 07:43] LABS: Creatinine Clr Calc Pharmacy 123.3; Estimated Glomerular Filt Rate > 60
[2024-10-21] MEDS: Ferrous Sulfate 324 MG TABLET.DR PO (08:24)
[2024-10-21] MEDS: lamoTRIgine 25 MG TABLET 75 MG PO ×2 (08:24→19:46)
[2024-10-21] MEDS: Losartan Potassium 25 MG TABLET PO (08:24)
[2024-10-21] MEDS: Enoxaparin Sodium 40 MG/0.4 ML SYRINGE SUBCUT (08:24)
[2024-10-21] MEDS: Lacosamide 100 MG TABLET 200 MG PO ×2 (08:24→19:55)
[2024-10-21] MEDS: amLODIPine Besylate 10 MG TABLET PO (08:24)
[2024-10-21] MEDS: OXcarbazepine 300 MG TABLET 600 MG PO ×2 (08:25→19:46)
[2024-10-21] MEDS: Insulin Glargine,Hum.rec.anlog 100 UNIT/ML 10 ML VIAL 10 UNIT SUBCUT (08:25)
[2024-10-21] MEDS: PHENobarbitaL 15 MG TABLET PO ×2 (08:25→19:46)
[2024-10-21] MEDS: 0.9 % Sodium Chloride Flush 3 ML SYRINGE IVFLUSH ×2 (08:25→11:40)
[2024-10-21] MEDS: Furosemide 20 MG TABLET PO (08:25)
--- NOTE | 2024-10-21 10:07 | HO.VASCPN ---
Subjective Subjective Date of Service: 10/21/24 Interval history: Henok is doing well this morning. He states he is feeling well and has been eating and drinking well. He states that his anxiety has increased slightly and it has caused him to lose some sleep. He states his foot/toe feels the same. He has no new concerns this morning. Physical Exam Vital Signs: Vital Signs: Last Vital Signs Temp 97.8 F 10/21/24 07:19 Pulse 60 10/21/24 07:19 Resp 18 10/21/24 07:19 BP 115/67 10/21/24 07:19 Pulse Ox 95 10/21/24 07:19 O2 Del Method Room Air 10/21/24 07:19 BMI result Body Mass Index 27.5 Const: General: comfortable and no acute distress Orientation/consciousness: patient oriented x3 HEENT: Ears: hearing grossly normal bilaterally Resp: Effort & Inspection: normal respiratory effort and able to speak in complete sentences Auscultation: clear to auscultation bilaterally Cardio: Rate: regular rate Rhythm: regular rhythm Heart sounds: S1 normal heart sound present and S2 normal heart sound present Bruits: no abdominal aortic bruits, no carotid bruits, no femoral bruits and no renal bruits GI: Palpation (GI): No Abdominal aortic bruit present Neuro: General: patient oriented x3 Cranial nerves: Yes CN's II-XII intact bilaterally Extrem: Other: Left foot: Dressing not taken down this morning, will be changed later. Progress Note: A&P Assessment and plan (1) Dry gangrene: Status: Acute Assessment and Plan: Henok remains stable from a vascular standpoint. We would continue with daily dressing changes of daily painting with betadine and wrapping with 4x4s and kerlix wrap. We would recommend following up with us outpatient in 2w after discharge. We will continue to monitor. If there are any questions or concerns, please do not hesitate to reach out. Time Spent With Patient Time: Total time managing care of this patient today ____ minutes. Procedures Date of Service Date of Service: 10/21/24 Quality Stroke Does the patient have a stroke diagnosis?: No VTE Prior VTE?: No VTE Risk Level:: Medical - moderate - high VTE Device Contraindication: Treatment Not Indicated VTE Drug Contraindication: N/A - Med Ordered
--- NOTE | 2024-10-21 10:23 | MHC.CM.PN ---
Per PCP's office, Patient is active with [facility]; CM will follow.
[2024-10-21 11:19] VITALS: BP 130/76; PULSE 65; RESP 18; TEMP 36.6; O2SAT 99
[2024-10-21 11:33] LABS: Glucose, Whole Blood 320 mg/dL (60-115)
[2024-10-21] MEDS: Insulin Lispro 100 UNIT/ML 3 ML VIAL SUBCUT ×3 (11:39→22:00)
--- NOTE | 2024-10-21 13:30 | P.PNIM_ITS ---
Subjective Subjective Date of Service: 10/21/24 Interval History: f/u on breakthrough seizure, alcohol withdrawal toe osteomyelitis Review of Systems No further seizure and no sings of alcohol withdrawal Review of Systems: Yes all other systems are reviewed and are negative Physical Exam 2 Vital Signs: Vital Signs: Last Vital Signs Temp 97.8 F 10/21/24 11:19 Pulse 65 10/21/24 11:19 Resp 18 10/21/24 11:19 BP 130/76 10/21/24 11:19 Pulse Ox 99 10/21/24 11:19 O2 Del Method Room Air 10/21/24 11:19 BMI result Body Mass Index 27.5 Gen: no acute distress pulm: air entry fair. Cardio: S1,S2,rrr. GI: +BS, NT, no distention Skin: see pics in h and p Neuro: motor grossly intact Objective Data Active Medications Acetaminophen (Acetaminophen 325 Mg Tablet) 975 mg PO Q6H PRN PRN Reason: Pain, Mild 1-3,fever,headache Amlodipine Besylate (Amlodipine Besylate 10 Mg Tablet) 10 mg PO DAILY [facility]; Protocol Last Admin: 10/21/24 08:24 Dose: 10 mg Documented By: PADMAJA Artificial Tears (Artificial Tears 15 Ml Drops) 1 drop EYE-BOTH Q4H PRN PRN Reason: itching eyes Calcium Carbonate (Calcium Carbonate 750 Mg Tab.Chew) 750 mg PO Q4H PRN PRN Reason: Heartburn Dextrose (Dextrose 50 % 25 Gm/50 Ml Syringe) 25 gm IVPUSH Q15M PRN; Protocol PRN Reason: per Hypoglycemia Standing Ord. Enoxaparin Sodium (Enoxaparin Sodium 40 Mg/0.4 Ml Syringe) 40 mg SUBCUT Q24H [facility] Last Admin: 10/21/24 08:24 Dose: 40 mg Documented By: PADMAJA Famotidine (Famotidine 20 Mg Tablet) 20 mg PO DAILY PRN PRN Reason: Heartburn Ferrous Sulfate (Ferrous Sulfate 324 Mg Tablet.) 324 mg PO DAILY [facility] Last Admin: 10/21/24 08:24 Dose: 324 mg Documented By: PADMAJA Furosemide (Furosemide 20 Mg Tablet) 20 mg PO DAILY [facility]; Protocol Last Admin: 10/21/24 08:25 Dose: 20 mg Documented By: PADMAJA Glucose (Glucose Gel 15 Gm Gel..Gram.) 15 gm PO Q15M PRN; Protocol PRN Reason: per Hypoglycemia Standing Ord. Insulin Glargine (Insulin Glargine,Hum.Rec.Anlog 100 Unit/Ml 10 Ml Vial) 8 unit SUBCUT BEDTIME [facility] Last Admin: 10/20/24 23:43 Dose: 8 unit Documented By: MACARIO Insulin Glargine (Insulin Glargine,Hum.Rec.Anlog 100 Unit/Ml 10 Ml Vial) 10 unit SUBCUT DAILY [facility] Last Admin: 10/21/24 08:25 Dose: 10 unit Documented By: PADMAJA Insulin Human Lispro (Insulin Lispro 100 Unit/Ml 3 Ml Vial) 0 unit SUBCUT QIDACHS [facility]; Protocol Last Admin: 10/21/24 11:39 Dose: 8 unit Documented By: PADMAJA Lacosamide (Lacosamide 100 Mg Tablet) 200 mg PO BID [facility] Last Admin: 10/21/24 08:24 Dose: 200 mg Documented By: PADMAJA Lamotrigine (Lamotrigine 25 Mg Tablet) 75 mg PO BID [facility] Last Admin: 10/21/24 08:24 Dose: 75 mg Documented By: PADMAJA Losartan Potassium (Losartan Potassium 25 Mg Tablet) 25 mg PO DAILY [facility]; Protocol Last Admin: 10/21/24 08:24 Dose: 25 mg Documented By: PADMAJA Magnesium Hydroxide (Milk Of Magnesia 30 Ml Oral.Susp) 30 ml PO DAILY PRN PRN Reason: Constipation Melatonin (Melatonin 3 Mg Tablet) 6 mg PO BEDTIME PRN PRN Reason: Insomnia Meropenem (Meropenem 1 Gm Vial) 1 gm IVPUSH Q8H [facility] Last Admin: 10/21/24 08:23 Dose: 1 gm Documented By: PADMAJA Morphine Sulfate (Morphine Sulfate 4 Mg/Ml Cartridge) 2 mg IVPUSH Q4H PRN; Protocol PRN Reason: Pain, Severe (Pain Scale 7-10) Ondansetron HCl (Ondansetron Hcl 4 Mg/2 Ml Vial) 4 mg IVPUSH Q8H PRN PRN Reason: Nausea and Vomiting Oxcarbazepine (Oxcarbazepine 300 Mg Tablet) 600 mg PO BID [facility] Last Admin: 10/21/24 08:25 Dose: 600 mg Documented By: PADMAJA Oxycodone HCl (Oxycodone Hcl Immed Release 5 Mg Tablet) 5 mg PO Q6H PRN PRN Reason: Pain, Moderate(Pain Scale 4-6) Pharmacy Consult (Consult Rx Etoh Phenob Im/Po) 1 each MISCELLANE ONCE PRN; Protocol PRN Reason: Consult order Pharmacy Consult (Consult Rx Vancomycin Dosing) 1 each MISCELLANE DAILY PRN PRN Reason: Consult order Phenobarbital (Phenobarbital 15 Mg Tablet) 15 mg PO BID [facility]; Protocol Stop: 10/22/24 09:01 Last Admin: 10/21/24 08:25 Dose: 15 mg Documented By: PADMAJA Phenobarbital (Phenobarbital 15 Mg Tablet) 15 mg PO DAILY [facility]; Protocol Stop: 10/24/24 09:01 Sodium Chloride (0.9 % Sodium Chloride Flush 3 Ml Syringe) [facility] Last Admin: 10/21/24 11:40 Dose: 3 ml Documented By: PADMAJA Labs 10/20/24 06:04 10/21/24 07:06 Labs: Laboratory Results - last 24 hr 10/20/24 10/20/24 10/21/24 15:08 20:38 07:06 Hold Purple Top SEE NOTE Estim Creat Clear Calc 123.3 Estimated GFR > 60 POC Glucose 218 H 165 H 10/21/24 10/21/24 07:21 11:20 Hold Purple Top Estim Creat Clear Calc Estimated GFR POC Glucose 126 H 320 H Microbiology Microbiology Results: Microbiology 10/19/24 05:45 Blood Culture - Preliminary Blood - Venous No growth after 48 hours. 10/19/24 14:49 Blood Culture - Preliminary Blood - Venous No growth after 24 hours. Assessment and Plan (1) Seizure: Status: Acute Assessment and Plan: day:5 44 yo male with a pmhx significant for alcohol use disorder with a hx of etoh withdrawal and wernicke's, T2DM with recurrent DKA, HTN, and seizure disorder, who presented to the ED today due to 2 seizures earlier, witnessed by the pt's mother. the patient is unable to give a history at this time. records from [facility] were printed in the ED with hisotry of recent etoh withdrawal seizure and wernicke's encephalopathy. seizure with acute encephalopathy, likely triggered by etoh withdrawal but also has underlying seizure d/o probably not compliant with meds no new seizure episode ,mental status improving neurology consult noted -continue Vimpat, lamictal and trileptal seizure precaution Alcohol withdrawal monitor ciwa-0 stop phenobarbital protocol thiamine and folate replacement mild leukocytosis-recative ,improved. acute hypokalemia: will recehck levels diabetes with flactuating fs /hyperglycemia , no dka fs and insulin. dry gangrene L great toe suspicious MRI Findings concerning for osteomyelitis of the 1st distal tuft. off vanco, flagyl, and cefepime Vascular surgery evaluated -Noninvasive testing was within normal limits an CONRAD of 1.0.recomended to follow up outpatient. currently on meropenem10/19 . ID consult for above. alcohol use disorder addiction med consult as above HTN continue home meds seizure disorder continue home meds Pt iwht seizure and encephalopathy,foot osteo-need iv antibiotics and id input for duration of antibiotics ,possible intermediate iv need . Quality Stroke Does the patient have a stroke diagnosis?: No VTE Prior VTE?: No VTE Risk Level:: Medical - moderate - high VTE Device Contraindication: Treatment Not Indicated VTE Drug Contraindication: N/A - Med Ordered
[2024-10-21 13:48] LABS: Potassium 3.4 mmol/L (3.3-5.1)
[2024-10-21 15:51] VITALS: BP 107/68; PULSE 58; RESP 16; TEMP 36.2; O2SAT 97
[2024-10-21] MEDS: Folic Acid 1 MG TABLET PO (15:54)
[2024-10-21] MEDS: Thiamine HCL 200 MG in 0.9 % Sodium Chloride 100 ML 204 MG IV (15:58)
[2024-10-21 16:00] VITALS: BP 112/70; PULSE 59; RESP 18; TEMP 36.8; O2SAT 99
[2024-10-21 16:22] LABS: Glucose, Whole Blood 243 mg/dL (60-115)
[2024-10-21 18:43] LABS: Levetiracetam Keppra <2.0 mcg/mL (6.0-46.0)
[2024-10-21] MEDS: Melatonin 3 MG TABLET 6 MG PO (19:46)
[2024-10-21 20:00] VITALS: BP 109/63; PULSE 84; RESP 16; TEMP 36; O2SAT 99
[2024-10-21 21:05] LABS: Glucose, Whole Blood 196 mg/dL (60-115)
[2024-10-21] MEDS: Insulin Glargine,Hum.rec.anlog 100 UNIT/ML 10 ML VIAL 8 UNIT SUBCUT (22:00)
[2024-10-21] MEDS: Thiamine HCL 200 MG in 0.9 % Sodium Chloride 100 ML IV (22:18)
[2024-10-22] VITALS (7 sets, daily range): BP systolic 104–130; BP diastolic 61–79; PULSE 52–66; RESP 16–20; TEMP 36–37.2; O2SAT 95–100
[2024-10-22] MEDS: Meropenem 1 GM VIAL IVPUSH ×3 (02:24→17:08)
[2024-10-22] MEDS: Thiamine HCL 200 MG in 0.9 % Sodium Chloride 100 ML IV ×3 (05:41→20:41)
[2024-10-22 07:07] LABS: Creatinine Clr Calc Pharmacy 128.5; Estimated Glomerular Filt Rate > 60
[2024-10-22 07:55] LABS: Glucose, Whole Blood 233 mg/dL (60-115)
[2024-10-22] MEDS: amLODIPine Besylate 10 MG TABLET PO (08:13)
[2024-10-22] MEDS: Folic Acid 1 MG TABLET PO (08:13)
[2024-10-22] MEDS: Lacosamide 100 MG TABLET 200 MG PO ×2 (08:13→20:41)
[2024-10-22] MEDS: OXcarbazepine 300 MG TABLET 600 MG PO ×2 (08:13→20:41)
[2024-10-22] MEDS: Losartan Potassium 25 MG TABLET PO (08:14)
[2024-10-22] MEDS: lamoTRIgine 25 MG TABLET 75 MG PO ×2 (08:14→20:40)
[2024-10-22] MEDS: PHENobarbitaL 15 MG TABLET PO (08:14)
[2024-10-22] MEDS: Ferrous Sulfate 324 MG TABLET.DR PO (08:14)
[2024-10-22] MEDS: Furosemide 20 MG TABLET PO (08:14)
[2024-10-22] MEDS: Enoxaparin Sodium 40 MG/0.4 ML SYRINGE SUBCUT (08:15)
[2024-10-22] MEDS: Insulin Glargine,Hum.rec.anlog 100 UNIT/ML 10 ML VIAL 10 UNIT SUBCUT (08:15)
[2024-10-22] MEDS: Insulin Lispro 100 UNIT/ML 3 ML VIAL SUBCUT ×4 (08:16→20:42)
[2024-10-22] MEDS: 0.9 % Sodium Chloride Flush 3 ML SYRINGE IVFLUSH ×3 (08:19→20:48)
[2024-10-22] MEDS: Morphine Sulfate 4 MG/ML CARTRIDGE 2 MG IVPUSH ×2 (08:33→20:47)
--- NOTE | 2024-10-22 10:40 | MHC.CM.PN ---
Per ROUNDS discussion, Patient is not yet medically cleared for dc (await ID Consult, needs a PICC); home with LT IVABT appears likely and CM will continue to follow.
--- NOTE | 2024-10-22 11:01 | MHC.CM.PN ---
Addendum entered by Bryanna Moctezuma RN 10/22/24 11:26: PER [facility] LIAISON WILL BE IN TO MEET PT'S MOTHER FOR TEACH TOMORROW 10/23 AT APPROX 12:30PM. Original Note: CM MET W/PT TO DISCUSS DISPO, PT WOULD LIKE TO DO IV ABX AT HOME W/MOM ROSA MARIA'S ASSISTANCE, [facility] AND AKYLA ELAINEA UPDATED, PT COULD DC SOON TOMORROW, CM WILL CONT TO FOLLOW DC NEEDS.
[2024-10-22 11:23] LABS: Glucose, Whole Blood 271 mg/dL (60-115)
[2024-10-22] MEDS: Acetaminophen 325 MG TABLET 975 MG PO (11:47)
[2024-10-22] MEDS: oxyCODONE HCl Immed Release 5 MG TABLET PO (14:38)
--- NOTE | 2024-10-22 15:54 | P.PNIM_ITS ---
Subjective Subjective Date of Service: 10/22/24 Interval History: toe osteomyelitis Review of Systems No further seizure and no sings of alcohol withdrawal Review of Systems: Yes all other systems are reviewed and are negative Physical Exam 2 Vital Signs: Vital Signs: Last Vital Signs Temp 97.6 F 10/22/24 15:15 Pulse 58 10/22/24 15:15 Resp 18 10/22/24 15:15 BP 115/71 10/22/24 15:15 Pulse Ox 99 10/22/24 15:15 O2 Del Method Room Air 10/22/24 15:15 BMI result Body Mass Index 27.5 Gen: no acute distress pulm: air entry fair. Cardio: S1,S2,rrr. GI: +BS, NT, no distention Skin: see pics in h and p Neuro: motor grossly intact Objective Data Active Medications Acetaminophen (Acetaminophen 325 Mg Tablet) 975 mg PO Q6H PRN PRN Reason: Pain, Mild 1-3,fever,headache Last Admin: 10/22/24 11:47 Dose: 975 mg Documented By: CHET Amlodipine Besylate (Amlodipine Besylate 10 Mg Tablet) 10 mg PO DAILY [facility]; Protocol Last Admin: 10/22/24 08:13 Dose: 10 mg Documented By: CHET Artificial Tears (Artificial Tears 15 Ml Drops) 1 drop EYE-BOTH Q4H PRN PRN Reason: itching eyes Calcium Carbonate (Calcium Carbonate 750 Mg Tab.Chew) 750 mg PO Q4H PRN PRN Reason: Heartburn Dextrose (Dextrose 50 % 25 Gm/50 Ml Syringe) 25 gm IVPUSH Q15M PRN; Protocol PRN Reason: per Hypoglycemia Standing Ord. Enoxaparin Sodium (Enoxaparin Sodium 40 Mg/0.4 Ml Syringe) 40 mg SUBCUT Q24H [facility] Last Admin: 10/22/24 08:15 Dose: 40 mg Documented By: CHET Famotidine (Famotidine 20 Mg Tablet) 20 mg PO DAILY PRN PRN Reason: Heartburn Ferrous Sulfate (Ferrous Sulfate 324 Mg Tablet.) 324 mg PO DAILY [facility] Last Admin: 10/22/24 08:14 Dose: 324 mg Documented By: CHET Folic Acid (Folic Acid 1 Mg Tablet) 1 mg PO DAILY [facility] Last Admin: 10/22/24 08:13 Dose: 1 mg Documented By: CHET Furosemide (Furosemide 20 Mg Tablet) 20 mg PO DAILY [facility]; Protocol Last Admin: 10/22/24 08:14 Dose: 20 mg Documented By: CHET Glucose (Glucose Gel 15 Gm Gel..Gram.) 15 gm PO Q15M PRN; Protocol PRN Reason: per Hypoglycemia Standing Ord. Thiamine HCl 200 mg/ Sodium (Chloride) 102 mls @ 204 mls/hr IV Q8H [facility] Last Infusion: 10/22/24 15:43 Dose: Infused Documented By: CHET Insulin Glargine (Insulin Glargine,Hum.Rec.Anlog 100 Unit/Ml 10 Ml Vial) 8 unit SUBCUT BEDTIME [facility] Last Admin: 10/21/24 22:00 Dose: 8 unit Documented By: MU Insulin Glargine (Insulin Glargine,Hum.Rec.Anlog 100 Unit/Ml 10 Ml Vial) 10 unit SUBCUT DAILY [facility] Last Admin: 10/22/24 08:15 Dose: 10 unit Documented By: CHET Insulin Human Lispro (Insulin Lispro 100 Unit/Ml 3 Ml Vial) 0 unit SUBCUT QIDACHS [facility]; Protocol Last Admin: 10/22/24 11:48 Dose: 6 unit Documented By: CHET Lacosamide (Lacosamide 100 Mg Tablet) 200 mg PO BID [facility] Last Admin: 10/22/24 08:13 Dose: 200 mg Documented By: CHET Lamotrigine (Lamotrigine 25 Mg Tablet) 75 mg PO BID [facility] Last Admin: 10/22/24 08:14 Dose: 75 mg Documented By: CHET Losartan Potassium (Losartan Potassium 25 Mg Tablet) 25 mg PO DAILY [facility]; Protocol Last Admin: 10/22/24 08:14 Dose: 25 mg Documented By: CHET Magnesium Hydroxide (Milk Of Magnesia 30 Ml Oral.Susp) 30 ml PO DAILY PRN PRN Reason: Constipation Melatonin (Melatonin 3 Mg Tablet) 6 mg PO BEDTIME PRN PRN Reason: Insomnia Last Admin: 10/21/24 19:46 Dose: 6 mg Documented By: MU Meropenem (Meropenem 1 Gm Vial) 1 gm IVPUSH Q8H [facility] Last Admin: 10/22/24 08:14 Dose: 1 gm Documented By: CHET Morphine Sulfate (Morphine Sulfate 4 Mg/Ml Cartridge) 2 mg IVPUSH Q4H PRN; Protocol PRN Reason: Pain, Severe (Pain Scale 7-10) Last Admin: 10/22/24 08:33 Dose: 2 mg Documented By: CHET Ondansetron HCl (Ondansetron Hcl 4 Mg/2 Ml Vial) 4 mg IVPUSH Q8H PRN PRN Reason: Nausea and Vomiting Oxcarbazepine (Oxcarbazepine 300 Mg Tablet) 600 mg PO BID [facility] Last Admin: 10/22/24 08:13 Dose: 600 mg Documented By: CHET Oxycodone HCl (Oxycodone Hcl Immed Release 5 Mg Tablet) 5 mg PO Q6H PRN PRN Reason: Pain, Moderate(Pain Scale 4-6) Last Admin: 10/22/24 14:38 Dose: 5 mg Documented By: CHET Pharmacy Consult (Consult Rx Etoh Phenob Im/Po) 1 each MISCELLANE ONCE PRN; Protocol PRN Reason: Consult order Pharmacy Consult (Consult Rx Vancomycin Dosing) 1 each MISCELLANE DAILY PRN PRN Reason: Consult order Sodium Chloride (0.9 % Sodium Chloride Flush 3 Ml Syringe) 3 ml IVFLUSH QSHIFT [facility] Last Admin: 10/22/24 08:19 Dose: 3 ml Documented By: CHET Labs 10/20/24 06:04 10/22/24 06:19 Labs: Laboratory Results - last 24 hr 10/17/24 10/21/24 10/21/24 19:33 15:52 20:55 Hold Purple Top Estim Creat Clear Calc Estimated GFR POC Glucose 243 H 196 H Levetiracetam <2.0 L 10/22/24 10/22/24 10/22/24 06:19 07:50 11:19 Hold Purple Top SEE NOTE Estim Creat Clear Calc 128.5 Estimated GFR > 60 POC Glucose 233 H 271 H Levetiracetam Microbiology Microbiology Results: Microbiology 10/19/24 14:49 Blood Culture - Preliminary Blood - Venous No growth after 48 hours. Assessment and Plan (1) Seizure: Status: Acute Assessment and Plan: day:6 44 yo male with a pmhx significant for alcohol use disorder with a hx of etoh withdrawal and wernicke's, T2DM with recurrent DKA, HTN, and seizure disorder, who presented to the ED today due to 2 seizures earlier, witnessed by the pt's mother. the patient is unable to give a history at this time. records from [facility] were printed in the ED with hisotry of recent etoh withdrawal seizure and wernicke's encephalopathy. seizure with acute encephalopathy, likely triggered by etoh withdrawal but also has underlying seizure d/o probably not compliant with meds no new seizure episode ,mental status improving neurology consult noted -continue Vimpat, lamictal and trileptal seizure precaution Alcohol withdrawal monitor ciwa-0 stop phenobarbital protocol thiamine and folate replacement mild leukocytosis-recative ,improved. acute hypokalemia: will recehck levels diabetes with flactuating fs /hyperglycemia , no dka fs and insulin. dry gangrene L great toe suspicious MRI Findings concerning for osteomyelitis of the 1st distal tuft. off vanco, flagyl, and cefepime Vascular surgery evaluated -Noninvasive testing was within normal limits an CONRAD of 1.0.recomended to follow up outpatient. currently on meropenem10/19 . ID consult for above. alcohol use disorder addiction med consult as above HTN continue home meds seizure disorder continue home meds Pt iwht seizure and encephalopathy,foot osteo-need iv antibiotics and id input for duration of antibiotics ,possible supervisor intermediates iv need . Quality Stroke Does the patient have a stroke diagnosis?: No VTE Prior VTE?: No VTE Risk Level:: Medical - moderate - high VTE Device Contraindication: Treatment Not Indicated VTE Drug Contraindication: N/A - Med Ordered
[2024-10-22 16:32] LABS: Glucose, Whole Blood 266 mg/dL (60-115)
--- NOTE | 2024-10-22 17:19 | W.PM.IDCN ---
History of Present Illness Data of Consult Service Date: 10/22/24 Requesting physician: Danial Rush Primary Care Provider: ARIN Dodson HPI Reason for consult: left great toe OM He has seizure,comes to hospital. He has AUD. He also has OM first digit distal phalanx left toe,no organisms. Review of Systems Review of Systems: Yes all other systems are reviewed and are negative [facility] Past Medical History Medical History Wernicke encephalopathy Alcohol withdrawal seizure Type 1 diabetes Alcohol dependence Seizure disorder HTN (hypertension) Family History Family history: reviewed and not pertinent Social History Social History Household Members: Family Housing: Unknown / Unable to assess Patient Tobacco Use Status: Tobacco use Unknown service: No Meds Allergies Allergy/AdvReac Type Severity Reaction Status Date / Time chlordiazepoxide Allergy Unknown Nausea Verified 10/19/24 15:35 [From Librium] Penicillins Allergy Unknown Unknown Verified 10/19/24 15:35 levetiracetam [From Keppra] AdvReac Severe agitation Verified 10/19/24 15:35 Active Medications: Current Medications Acetaminophen (Acetaminophen 325 Mg Tablet) 975 mg PO Q6H PRN PRN Reason: Pain, Mild 1-3,fever,headache Last Admin: 10/22/24 11:47 Dose: 975 mg Amlodipine Besylate (Amlodipine Besylate 10 Mg Tablet) 10 mg PO DAILY [facility]; Protocol Last Admin: 10/22/24 08:13 Dose: 10 mg Artificial Tears (Artificial Tears 15 Ml Drops) 1 drop EYE-BOTH Q4H PRN PRN Reason: itching eyes Calcium Carbonate (Calcium Carbonate 750 Mg Tab.Chew) 750 mg PO Q4H PRN PRN Reason: Heartburn Dextrose (Dextrose 50 % 25 Gm/50 Ml Syringe) 25 gm IVPUSH Q15M PRN; Protocol PRN Reason: per Hypoglycemia Standing Ord. Enoxaparin Sodium (Enoxaparin Sodium 40 Mg/0.4 Ml Syringe) 40 mg SUBCUT Q24H [facility] Last Admin: 10/22/24 08:15 Dose: 40 mg Famotidine (Famotidine 20 Mg Tablet) 20 mg PO DAILY PRN PRN Reason: Heartburn Ferrous Sulfate (Ferrous Sulfate 324 Mg Tablet.) 324 mg PO DAILY [facility] Last Admin: 10/22/24 08:14 Dose: 324 mg Folic Acid (Folic Acid 1 Mg Tablet) 1 mg PO DAILY [facility] Last Admin: 10/22/24 08:13 Dose: 1 mg Furosemide (Furosemide 20 Mg Tablet) 20 mg PO DAILY [facility]; Protocol Last Admin: 10/22/24 08:14 Dose: 20 mg Glucose (Glucose Gel 15 Gm Gel..Gram.) 15 gm PO Q15M PRN; Protocol PRN Reason: per Hypoglycemia Standing Ord. Thiamine HCl 200 mg/ Sodium (Chloride) 102 mls @ 204 mls/hr IV Q8H [facility] Last Infusion: 10/22/24 15:43 Dose: Infused Insulin Glargine (Insulin Glargine,Hum.Rec.Anlog 100 Unit/Ml 10 Ml Vial) 8 unit SUBCUT BEDTIME [facility] Last Admin: 10/21/24 22:00 Dose: 8 unit Insulin Glargine (Insulin Glargine,Hum.Rec.Anlog 100 Unit/Ml 10 Ml Vial) 10 unit SUBCUT DAILY [facility] Last Admin: 10/22/24 08:15 Dose: 10 unit Insulin Human Lispro (Insulin Lispro 100 Unit/Ml 3 Ml Vial) 0 unit SUBCUT QIDACHS [facility]; Protocol Last Admin: 10/22/24 17:08 Dose: 6 unit Lacosamide (Lacosamide 100 Mg Tablet) 200 mg PO BID [facility] Last Admin: 10/22/24 08:13 Dose: 200 mg Lamotrigine (Lamotrigine 25 Mg Tablet) 75 mg PO BID [facility] Last Admin: 10/22/24 08:14 Dose: 75 mg Losartan Potassium (Losartan Potassium 25 Mg Tablet) 25 mg PO DAILY [facility]; Protocol Last Admin: 10/22/24 08:14 Dose: 25 mg Magnesium Hydroxide (Milk Of Magnesia 30 Ml Oral.Susp) 30 ml PO DAILY PRN PRN Reason: Constipation Melatonin (Melatonin 3 Mg Tablet) 6 mg PO BEDTIME PRN PRN Reason: Insomnia Last Admin: 10/21/24 19:46 Dose: 6 mg Meropenem (Meropenem 1 Gm Vial) 1 gm IVPUSH Q8H [facility] Last Admin: 10/22/24 17:08 Dose: 1 gm Morphine Sulfate (Morphine Sulfate 4 Mg/Ml Cartridge) 2 mg IVPUSH Q4H PRN; Protocol PRN Reason: Pain, Severe (Pain Scale 7-10) Last Admin: 10/22/24 08:33 Dose: 2 mg Ondansetron HCl (Ondansetron Hcl 4 Mg/2 Ml Vial) 4 mg IVPUSH Q8H PRN PRN Reason: Nausea and Vomiting Oxcarbazepine (Oxcarbazepine 300 Mg Tablet) 600 mg PO BID [facility] Last Admin: 10/22/24 08:13 Dose: 600 mg Oxycodone HCl (Oxycodone Hcl Immed Release 5 Mg Tablet) 5 mg PO Q6H PRN PRN Reason: Pain, Moderate(Pain Scale 4-6) Last Admin: 10/22/24 14:38 Dose: 5 mg Pharmacy Consult (Consult Rx Etoh Phenob Im/Po) 1 each MISCELLANE ONCE PRN; Protocol PRN Reason: Consult order Pharmacy Consult (Consult Rx Vancomycin Dosing) 1 each MISCELLANE DAILY PRN PRN Reason: Consult order Sodium Chloride (0.9 % Sodium Chloride Flush 3 Ml Syringe) 3 ml IVFLUSH [facility] Last Admin: 10/22/24 17:09 Dose: 3 ml Home Medications ?Medication ?Instructions ?Recorded ?Confirmed ?Last Taken ?Type amlodipine 10 mg tablet 10 mg PO DAILY 10/18/24 10/18/24 Unknown History famotidine 20 mg tablet 20 mg PO DAILY PRN Heartburn 10/18/24 10/18/24 Unknown History ferrous gluconate 324 mg (38 mg 324 mg PO DAILY 10/18/24 10/18/24 Unknown History iron) tablet furosemide 20 mg tablet 20 mg PO DAILY 10/18/24 10/18/24 Unknown History insulin glargine 100 unit/mL 8 unit subcut BEDTIME 10/18/24 10/18/24 Unknown History subcutaneous solution (Lantus U-100 Insulin) insulin lispro 100 unit/mL See Protocol subcut TID 10/18/24 10/18/24 Unknown History subcutaneous cartridge (Humalog U-100 Insulin) lacosamide 200 mg tablet 200 mg PO BID 10/18/24 10/18/24 Unknown History lamotrigine 25 mg tablet 75 mg PO BID 10/18/24 10/18/24 Unknown History losartan 25 mg tablet 25 mg PO DAILY 10/18/24 10/18/24 Unknown History naltrexone microspheres 380 mg 380 mg IM Q28D 10/18/24 10/18/24 09/17/24 History intramuscular suspension,extended release (Vivitrol) nicotine (polacrilex) 2 mg buccal 2 mg mucous membrane Q1H PRN 10/18/24 10/18/24 Unknown History lozenge Nicotine Cravings oxcarbazepine 600 mg tablet 600 mg PO BID 10/18/24 10/18/24 Unknown History vitamin B complex-folic acid 0.4 1 tab PO DAILY 10/18/24 10/18/24 Unknown History mg tablet (B Complex 1 (with folic acid)) Physical Exam Vital Signs: Vital Signs: Last Vital Signs Temp 97.6 F 10/22/24 15:15 Pulse 58 10/22/24 15:15 Resp 18 10/22/24 15:15 BP 115/71 10/22/24 15:15 Pulse Ox 99 10/22/24 15:15 O2 Del Method Room Air 10/22/24 15:15 BMI result Body Mass Index 27.5 Const: General: cooperative HEENT: Head: Yes normal to inspection Face and sinus: Yes normal facial exam Mouth: Normal oral and palatal mucosa present Teeth and gingiva: dentition normal Eyes: General: appearance normal, both eyes and all related structures Pupils: Equal, round and reactive pupils present Resp: Effort & Inspection: normal respiratory effort Cardio: Rate: regular rate Rhythm: regular rhythm GI: Palpation (GI): Soft to palpation and nontender : General: Yes no CVA tenderness Back/Spine/Pelvis: Back: no CVA tenderness Skin: General skin exam: no rashes or lesions noted Neuro: General: moves all extremities Cranial nerves: Yes Equal, round and reactive pupils present Extrem: Other: gangrene distal tuft left foot Psych: Appearance: grossly normal Results Labs 10/20/24 06:04 10/22/24 06:19 Labs: BMP 10/22/24 06:19 Creatinine 0.71 Microbiology Microbiology Results: Microbiology 10/19/24 14:49 Blood - Venous Blood Culture - Preliminary No growth after 48 hours. 10/19/24 05:45 Blood - Venous Blood Culture - Preliminary No growth after 48 hours. Assessment and Plan (1) Diabetic ulcer of toe: Qualifiers: Diabetes mellitus type: type 1 Laterality: left Non-pressure ulcer stage: unspecified non-pressure ulcer stage Qualified Code(s): E10.621 - Type 1 diabetes mellitus with foot ulcer; L97.529 - Non-pressure chronic ulcer of other part of left foot with unspecified severity Status: Acute Plan He has OM If willing to take six weeks IV antibiotics Vancomycin with one week po Flagyl may be helpful. If not po Augmentin and Doxycycline for 4-6 weeks and surgery remove bone if not improving. Nonoperative options not curative,patient aware.
[2024-10-22 20:28] LABS: Glucose, Whole Blood 214 mg/dL (60-115)
[2024-10-22] MEDS: Insulin Glargine,Hum.rec.anlog 100 UNIT/ML 10 ML VIAL 8 UNIT SUBCUT (20:43)
[2024-10-22 22:48] LABS: Glucose, Whole Blood 39 mg/dL (60-115)
--- NOTE | 2024-10-22 22:58 | PM.EVENT ---
Event Note Date of Service: 10/22/24 Event Note: Nurse reported hypoglycemia. Will reduce basal insulin Time Spent With Patient Time: Total time managing care of this patient today ____ minutes.
[2024-10-22] MEDS: Dextrose 50 % 25 GM/50 ML SYRINGE IVPUSH (23:03)
[2024-10-22 23:40] LABS: Glucose, Whole Blood 173 mg/dL (60-115)
[2024-10-23] MEDS: Meropenem 1 GM VIAL IVPUSH (02:27)
[2024-10-23 03:26] VITALS: BP 104/59; PULSE 59; RESP 18; TEMP 36.7; O2SAT 97
[2024-10-23] MEDS: Thiamine HCL 200 MG in 0.9 % Sodium Chloride 100 ML IV (06:24)
[2024-10-23 07:10] LABS: Glucose, Whole Blood 178 mg/dL (60-115)
[2024-10-23 07:46] LABS: Creatinine Clr Calc Pharmacy 128.5; Estimated Glomerular Filt Rate > 60
[2024-10-23 08:08] VITALS: BP 130/80; PULSE 65; RESP 16; TEMP 36.5; O2SAT 97
[2024-10-23] MEDS: Enoxaparin Sodium 40 MG/0.4 ML SYRINGE SUBCUT (08:41)
[2024-10-23] MEDS: Insulin Lispro 100 UNIT/ML 3 ML VIAL SUBCUT ×2 (08:41→11:56)
[2024-10-23] MEDS: Insulin Glargine,Hum.rec.anlog 100 UNIT/ML 10 ML VIAL SUBCUT (08:42)
[2024-10-23] MEDS: vancomycin/NS 2,000 MG/500 ML PLAST..BAG 250 MG IV (08:43)
[2024-10-23] MEDS: Ferrous Sulfate 324 MG TABLET.DR PO (08:43)
[2024-10-23] MEDS: metroNIDAZOLE 500 MG TABLET PO ×2 (08:43→14:55)
[2024-10-23 08:44] VITALS: BP 130/80
[2024-10-23] MEDS: Furosemide 20 MG TABLET PO (08:44)
[2024-10-23] MEDS: Losartan Potassium 25 MG TABLET PO (08:44)
[2024-10-23] MEDS: OXcarbazepine 300 MG TABLET 600 MG PO (08:44)
[2024-10-23 08:45] VITALS: BP 130/80
[2024-10-23] MEDS: lamoTRIgine 25 MG TABLET 75 MG PO (08:45)
[2024-10-23] MEDS: Folic Acid 1 MG TABLET PO (08:45)
[2024-10-23] MEDS: amLODIPine Besylate 10 MG TABLET PO (08:45)
[2024-10-23] MEDS: Lacosamide 100 MG TABLET 200 MG PO (08:46)
[2024-10-23] MEDS: 0.9 % Sodium Chloride Flush 3 ML SYRINGE IVFLUSH (09:00)
--- NOTE | 2024-10-23 11:18 | P.PICC_ITS ---
[facility] Diagnosis: LEFT GREAT TOE OSTEOMYELITIS Indication: [employer] ANTIBX Pertinent Labs: REVIEWED Technique: Following informed consent including risks, benefits and alternatives and using sterile technique including cap and mask, sterile gown, glove and drape, the RIGHT arm was prepped and draped in the usual sterile fashion of full barrier technique with [facility]. Following completion of Salome Protocol the skin and soft tissues were anesthetized with 1% Lidocaine plain. Using ultrasound guidance, RIGHT BRACHIAL vein access was obtained. Over an 0.018 wire through peel-away sheath, a 4FR PASV POWERPICC line was positioned. Catheter length is 44CM internal length, 0CM external length, for a total trimmed length of 44CM. The procedure was performed in RM 272. Tip verification was performed by Shad Watts with Sherlock 3CG. Tip located in SVC. Ultrasound was used to document vein patency and for needle entry. A formal ultrasound picture and cardiac rhythm strip was recorded. [facility] has released the line for use and it is currently dressed with a StatLock, Tegaderm, and CHG disc. Ve rification has been performed for blood return and line patency. Arm Circumference: 27.5CM Equipment:BARD POWERPICC SOLO CATHETER WITH SHERLOCK 3CG TIP Catheter Type: 4FR PASV POWERPICC Lot #: [id number]
[2024-10-23 11:39] LABS: Glucose, Whole Blood 306 mg/dL (60-115)
[2024-10-23 11:45] VITALS: BP 129/81; PULSE 70; RESP 18; TEMP 36.8; O2SAT 98
[2024-10-23] MEDS: Acetaminophen 325 MG TABLET 975 MG PO (11:59)
--- NOTE | 2024-10-23 13:13 | MHC.CM.PN ---
ANTIC PT WILL MEDICALLY CLEARED FOR DC PENDING NO RX TO DAPTO, PT WILL DC W/[facility] FOR IV DAPTO AND RESUMP OF [facility], PT WILL NEED TO CALL ONE OF HIS PARENTS FOR TRANSPORT
--- NOTE | 2024-10-23 13:49 | W.MHC.F2F ---
Service Date Service Date: 10/23/24 Encounter Date of encounter: 10/23/24 Encounter: Osteomyelitis, diabetes, alcohol withdrawal Reasons for Services Signs and symptoms assessed: Monitor for any fevers or worsening foot erythema or discharge. Reason for nursing home: diabetic teaching, monitoring of unstable blood sugar, medication management, medication treatment and teach disease management MD Overseeing Care: Dolores Zayas Homebound: Leaving the home is medically contraindicated at this time without the asist of a device and/or another person due th the listed conditions above and below. Reason homebound: weakness related to hospital stay Homebound supporting statement: Patient need help with going to appointments and labs draws as well as diabetes and disease management. Certification: Based on the above findings, I certify that this patient is confined to the home and needs intermittent nursing home care, physical therapy and/or speech therapy, or continues to need occupational therapy. The patient is under my care, and I have initiated the establishment of the plan of care. The patient will be followed by a physician who will periodically review the plan of care. Time Spent With Patient Time: Total time managing care of this patient today ____ minutes.
--- NOTE | 2024-10-23 13:55 | P.DS_ITS ---
DS: Providers Provider Date of Service: 10/23/24 Date of admission: 10/17/24 23:47 Date of discharge: 10/23/24 Primary care physician: ARIN Dodson Consults: 10/17/24 23:46 Consult to Neurology Routine Consulting Provider: [facility] Reason for consultation: seizure Has provider been notified: No 10/18/24 00:24 Addiction Medicine Provider Routine Consulting Provider: [facility] Reason for consultation: etoh abuse Has provider been notified: No 10/18/24 00:26 Consult to Vascular Surgery Routine Consulting Provider: [facility] Reason for consultation: ?dry gangrene L great toe Has provider been notified: No 10/18/24 13:12 Consult to Wound Care Routine Reason for consultation: Left great toe tip necrotic/ dry gangrene Has provider been notified: Yes 10/20/24 08:16 Inpt - Recovery Team Routine Comment: Reason for consultation: MARCIAL eval 10/20/24 14:35 Consult to Wound Care Routine Reason for consultation: diabetic wound Has provider been notified: Yes 10/21/24 13:47 Consult to Infectious Diseases Routine Consulting Provider: [facility] Reason for consultation: toe osteomyelitis Has provider been notified: No Attending physician on discharge: Danial Rush Discharging clinician: Danial Rush DS: Diagnosis Discharge Diagnosis (1) Diabetic ulcer of toe: Status: Acute DS: Summary Hospital Course Hospital Course: Hpi:44 yo male with a pmhx significant for alcohol use disorder with a hx of etoh withdrawal and wernicke's, T2DM with recurrent DKA, HTN, and seizure disorder, who presented to the ED today due to 2 seizures earlier, witnessed by the pt's mother. they reported that his blood sugar was elevated when the pt had his first seizure and they gave him insulin, and after the 2nd seizure they brought him in due to prolonged AMS afterwards. they admit that he has been drinking eoth, amount known, possibly a few 6 packs/week , but state they recently moved and he has not been able to get to the store to get alcohol as frequently and he has only been drinking beer, previously vodka. He was hospitalized 2x recently at [facility] for DKA and L foot wound, managed by wound care currently. the patient has a history of medication noncompliance, and his mother is unaware if he has been skipping his medications. he also has a history of severe agitation and aggression postictally, exacerbated by keppra. upon arrival he was restrained, but able to transfer to the bed safely. POC was 405 for EMS. Hospital course: 44 yo male with a pmhx significant for alcohol use disorder with a hx of etoh withdrawal and wernicke's, T2DM with recurrent DKA, HTN, and seizure disorder, who presented to the ED today due to 2 seizures earlier, witnessed by the pt's mother. the patient is unable to give a history at this time. records from [facility] were printed in the ED with hisotry of recent etoh withdrawal seizure and wern icke's encephalopathy. seizure with acute encephalopathy, likely triggered by etoh withdrawal but also has underlying seizure d/o probably not compliant with meds No new seizure episode, patient mental status as baseline, seen by neurology consult noted -continue Vimpat, lamictal and trileptal seizure precaution Alcohol withdrawal: Patient was treated with phenobarb protocol, alcohol withdrawal resolved. Continue thiamine &folic acid. mild leukocytosis-recative ,improved. acute hypokalemia: Repleted and resolved. Monitor BMP outpatient. diabetes with flactuating fs Had 1 episode of hypoglycemia last night. Lantus adjusted to 5 unit at bedtime. Monitor fingersticks closely at home. also added glucogel and glucagon prn . Strongly advised for adequate p.o. intake also. dry gangrene L great toe suspicious MRI Findings concerning for osteomyelitis of the 1st distal tuft. off vanco, flagyl, and cefepime Vascular surgery evaluated -Noninvasive testing was within normal limits an CONRAD of 1.0.recomended to follow up outpatient. Seen by infectious disease: Recommended IV daptomycin for 6 weeks, metronidazole 500 mg p.o. t.i.d. for 1 week. Patient had mild itching IV vanco: Which is resolved with the Benadryl, will give p.o. Benadryl limited supply. plan: IV daptomycin for 6 weeks, metronidazole 500 mg p.o. t.i.d. for 1 week. Benadryl 25 mg t.i.d. p.r.n.(total 10 tablets.). Consider monitoring CBC, BMP, LFTs, CPK Q weekly while on daptomycin. Lantus adjusted to 5 unit at bedtime. Monitor fingersticks closely and Lantus can be adjusted as per fingersticks outpatient. In addition we will add glucagon/Glucogel if needed for hypoglycemia. please see wound care instruction-in discharge instruction section. Patient need to follow-up with Dr. Sanford's office, wound care instructions as above. Above management discussed with the patient detail length he understand and in agreement with the above plan, time spent 40 minute. Time Attestation Total time managing care of this patient today: 40 mintues. Discharge Coordination Time (in mins): 40 min Quality: Safe Use of Opioids Does Pt have an Active Cancer Diagnosis on the Problem List?: No Quality: Stroke Does the patient have a stroke diagnosis?: No Physical Exam Vital Signs: Vital Signs: Last Vital Signs Temp 98.2 F 10/23/24 11:45 Pulse 70 10/23/24 11:45 Resp 18 10/23/24 11:45 BP 129/81 10/23/24 11:45 Pulse Ox 98 10/23/24 11:45 O2 Del Method Room Air 10/23/24 11:45 BMI result Body Mass Index 27.5 Appearance: Alert.? Oriented. cvs: rrr, [id number] . res: clear to auscultation ,no rhonchii or wheezing abd: no rebound or guarding ,nt, bs present. as per vascular note:Left great toe: dry eschar and scabbing noted to the tip of the toe. Painful to the medial aspect of the toe, inbetween the 1st and 2nd toes. Toenail is thick and wound ends just before the nailbed. Left 2nd toe: small closed ulceration noted on the dorsal aspect of the toe, just below the toenail. Not painful to palpation. Left lower extremity: faint but palpable DP pulse. Foot/leg warm to the touch. Trace peripheral edema noted neuro: nonfocal. DS: Data Data Completed and Pending Labs on day of discharge: Laboratory Results - last 24 hr 10/22/24 10/22/24 10/22/24 16:22 20:10 22:43 Hold Purple Top Creatinine Estim Creat Clear Calc Estimated GFR POC Glucose 266 H 214 H 39 L* 10/22/24 10/23/24 10/23/24 23:20 06:55 07:05 Hold Purple Top SEE NOTE Creatinine 0.71 Estim Creat Clear Calc 128.5 Estimated GFR > 60 POC Glucose 173 H 178 H 10/23/24 11:35 Hold Purple Top Creatinine Estim Creat Clear Calc Estimated GFR POC Glucose 306 H Preliminary micro results at discharge 10/19/24 14:49 Blood Culture - Preliminary Blood - Venous No growth after 48 hours. 10/19/24 05:45 Blood Culture - Preliminary Blood - Venous No growth after 48 hours. Imaging Chest x-ray: My impression: Ankle-brachial index: Comparison: None Findings: Right brachial artery 115 mmHg Right posterior tibial artery 135 mmHg Right dorsalis pedis artery 119 mmHg Left brachial artery 135 mmHg Left posterior tibial artery 136 mmHg Left dorsalis pedis artery 136 mmHg Impression: 1. Right CONRAD 1.0 2. Left CONRAD 1.0 mri foot: Impression: Findings concerning for osteomyelitis of the 1st distal tuft. Discharge Plan Discharge Anticipated Discharge Date/Time: 10/23/24 13:15 Patient Disposition: Home Health Service Discharge Diagnosis: Seizure with encephalopathy, alcohol withdrawal, left foot osteomyelitis Referrals: [facility] [Other] - 1 Day ([facility] WILL DELIVER YOUR IV ANTIBIOTICS AND SUPPLIES, PLEASE FEEL FREE TO CALL [phone] WITH ANY QUESTIONS OR CONCERNS. ) [facility] [Outside] - 1 Week (DETENTION ) Melita Ann PA-C [Physician Real Estate Agent] - 2 Weeks Dolores Zayas FNP [Primary Care Provider] - 1 Week Discharge Medications: New metronidazole 500 mg Tablet 500 mg PO Q8H Qty: 20 0RF folic acid 1 mg Tablet 1 mg PO DAILY Qty: 30 0RF daptomycin 350 mg Recon Soln 620 mg IV Q24H Qty: 1 0RF Rx Instructions: Daptomycin 620 mg IV daily for 6 weeks end date will be 12/03/24 thiamine HCl (vitamin B1) 100 mg tablet 100 mg PO DAILY Qty: 90 0RF diphenhydramine HCl [Benadryl] 25 mg capsule 25 mg PO TID PRN (Reason: itching) Qty: 10 0RF Glucagon Emergency Kit (human) 1 mg recon soln 1 mg subcut Q20M PRN (Reason: hypocalcemia) Qty: 1 0RF Rx Instructions: until target blood sugar attained dextrose [Glucose Gel] 40 % gel 10 g PO Q15M PRN (Reason: hypocalcemia) Qty: 112.5 0RF Rx Instructions: until symptoms of low blood sugar are controlled Continued amlodipine 10 mg tablet 10 mg PO DAILY losartan 25 mg tablet 25 mg PO DAILY oxcarbazepine 600 mg tablet 600 mg PO BID Humalog U-100 Insulin 100 unit/mL cartridge See Protocol subcut TID Protocol: Insulin Correction Scale Less than or equal to 110 ---- Give (units): 0 111 to 150 Give (units): 0 151 to 200 Give (units): 2 201 to 250 Give (units): 4 251 to 300 Give (units): 6 301 to 350 Give (units): 8 Greater than 350 Give (units): 10 Call MD if Blood Glucose > : 350 nicotine (polacrilex) 2 mg lozenge 2 mg mucous membrane Q1H PRN (Reason: Nicotine Cravings) vitamin B complex-folic acid [B Complex 1 (with folic acid)] 0.4 mg tablet 1 tab PO DAILY Vivitrol 380 mg suspension,extended rel recon 380 mg IM Q28D ferrous gluconate 324 mg (38 mg iron) tablet 324 mg PO DAILY lacosamide 200 mg tablet 200 mg PO BID famotidine 20 mg Tablet 20 mg PO DAILY PRN (Reason: Heartburn) furosemide 20 mg tablet 20 mg PO DAILY lamotrigine 25 mg tablet 75 mg PO BID Changed insulin glargine [Lantus U-100 Insulin] 100 unit/mL solution 5 unit subcut BEDTIME Qty: 10 0RF Discharge Orders: Discharge Order (Routine); Ordered 10/23/24 Ordered By: Danial Rush Diet: Advance to usual diet Activity on Discharge: As tolerated Stand Alone Forms: Patient Portal Discharge page Print Language: Unable To Collect Activity Restrictions/Additional Instructions: Topical Wound Care Recommendations: Left Great Toe - Cleanse with Betadine allow to dry. Apply skin prep in webspace between toes, place 2x2 dry gauze and dry dressing to protect from environment. Maintain blood glucose levels per Providers order. Recommend Dr. Sanford Vascular Surgeon for outpatient follow up.? His office is located at [address] [place] [address] [id number], [place] [address], call for an appointment at time of discharge [phone] Care Plan Goals: 44 yo male with a pmhx significant for alcohol use disorder with a hx of etoh withdrawal and wernicke's, T2DM with recurrent DKA, HTN, and seizure disorder, who presented to the ED today due to 2 seizures earlier, witnessed by the pt's mother. the patient is unable to give a history at this time. records from [facility] were printed in the ED with hisotry of recent etoh withdrawal seizure and wernicke's encephalopathy. seizure with acute encephalopathy, likely triggered by etoh withdrawal but also has underlying seizure d/o probably not compliant with meds No new seizure episode, patient mental status as baseline, seen by neurology consult noted -continue Vimpat, lamictal and trileptal seizure precaution Alcohol withdrawal: Patient was treated with phenobarb protocol, alcohol withdrawal resolved. Continue thiamine &folic acid. mild leukocytosis-recative ,improved. acute hypokalemia: Repleted and resolved. Monitor BMP outpatient. diabetes with flactuating fs Had 1 episode of hypoglycemia last night. Lantus adjusted to 5 unit at bedtime. Monitor fingersticks closely at home. also added glucogel and glucagon prn . Strongly advised for adequate p.o. intake also. dry gangrene L great toe suspicious MRI Findings concerning for osteomyelitis of the 1st distal tuft. off vanco, flagyl, and cefepime Vascular surgery evaluated -Noninvasive testing was within normal limits an CONRAD of 1.0.recomended to follow up outpatient. Seen by infectious disease: Recommended IV daptomycin for 6 weeks, metronidazole 500 mg p.o. t.i.d. for 1 week. Patient had mild itching IV vanco: Which is resolved with the Benadryl, will give p.o. Benadryl limited supply. Health Concerns: IV daptomycin for 6 weeks, metronidazole 500 mg p.o. t.i.d. for 1 week. Benadryl 25 mg t.i.d. p.r.n.(total 10 tablets.). lantus adjusted 5 units qhs. Consider monitoring CBC, BMP, LFTs, CPK Q weekly while on daptomycin. Patient need to follow-up with Dr. Sanford's office, wound care instructions as above. Plan of Treatment: As above. Assessment: As above.
[2024-10-23] MEDS: DAPTOmycin 620 MG in 0.9 % Sodium Chloride 50 ML 100.06 MG IV (14:45)
[2024-10-23] MEDS: diphenhydrAMINE HCL 25 MG CAPSULE PO (14:45)
[2024-10-23] MEDS: Thiamine HCL 200 MG in 0.9 % Sodium Chloride 100 ML 204 MG IV (14:47)
[2024-10-23 15:20] VITALS: BP 119/69; PULSE 59; RESP 16; TEMP 36.6; O2SAT 100
== END 2024-10-23 16:42 | disposition home health service (06) | DRG 344 ==
LOC: HO.ED 10-18 01:10 → HO.EDOVER 10-18 01:18 → HO.IMC 10-18 07:40
PROVIDERS: Internal Medicine; Admitting Provider Physician Assistant; Emergency Provider Emergency Medicine; PCP Nurse Practitioner Family; Visit Provider Internal Medicine
DX: E10.69 Type 1 diabetes mellitus with other specified complication (principal); M86.9 Osteomyelitis, unspecified; F10.27 Alcohol dependence with alcohol-induced persisting dementia; E10.621 Type 1 diabetes mellitus with foot ulcer; E10.52 Type 1 diabetes mellitus with diabetic peripheral angiopathy with gangrene; F10.239 Alcohol dependence with withdrawal, unspecified; R56.9 Unspecified convulsions; G40.509 Epileptic seizures related to external causes, not intractable, without status epilepticus; E10.649 Type 1 diabetes mellitus with hypoglycemia without coma; L97.529 Non-pressure chronic ulcer of other part of left foot with unspecified severity; E87.6 Hypokalemia; E10.65 Type 1 diabetes mellitus with hyperglycemia; Z91.148 Patient's other noncompliance with medication regimen for other reason; Z20.822 Contact with and (suspected) exposure to COVID-19; Z79.899 Other long term (current) drug therapy
CPT/HCPCS: 0241U; 36415; 36573; 70450; 73720; 74177; 80048; 80076; 80177; 80202; 80307; 81001; 82010; 82550; 82565; 82803; 82947; 83605; 83690; 83735; 84132; 84484; 85025; 85027; 85610; 85652; 86140; 87040; 93005; 93922; 93925; 99285; A9585; C1751; C1894; J0692; J0878; J1650; J1836; J1953; J2185; J2250; J2270; J2560; J3360; J3370; J3411; J7120; Q9967; S9485

== ENCOUNTER → 2024-10-17 19:17 | Outpatient (BNV) | payer MEDICAID, SELFPAY | PROVIDERS: Admitting Provider Physician Assistant; Emergency Provider Emergency Medicine; Visit Provider Internal Medicine Cardiovascular Disease | DX: R56.9 Unspecified convulsions (principal) | CPT/HCPCS: 93010 ==

== ENCOUNTER 2024-10-17 23:47 | Outpatient (BNV) | payer MEDICAID, SELFPAY | END 2024-10-18 02:25 | PROVIDERS: Admitting Provider Physician Assistant; Emergency Provider Emergency Medicine; Visit Provider Radiology Diagnostic Radiology | DX: I96 Gangrene, not elsewhere classified (principal); K76.89 Other specified diseases of liver; R41.82 Altered mental status, unspecified | CPT/HCPCS: 70450; 73720; 74177 ==

== ENCOUNTER 2024-10-17 23:47 | Outpatient (BNV) | payer MEDICAID, SELFPAY | END 2024-10-20 14:58 | PROVIDERS: Admitting Provider Physician Assistant; Emergency Provider Emergency Medicine; PCP Nurse Practitioner Family; Visit Provider Radiology Diagnostic Radiology | DX: L97.529 Non-pressure chronic ulcer of other part of left foot with unspecified severity (principal); M86.9 Osteomyelitis, unspecified | CPT/HCPCS: 93922 ==

== ENCOUNTER → 2024-10-17 23:47 | Outpatient (BNV) | payer MEDICAID, SELFPAY | PROVIDERS: Admitting Provider Physician Assistant; Emergency Provider Emergency Medicine; PCP Nurse Practitioner Family; Visit Provider Physician Assistant Surgical | DX: E10.621 Type 1 diabetes mellitus with foot ulcer (principal); L97.529 Non-pressure chronic ulcer of other part of left foot with unspecified severity; I96 Gangrene, not elsewhere classified | CPT/HCPCS: 99222; 99232 ==

== ENCOUNTER → 2024-10-17 23:47 | Outpatient (BNV) | payer MEDICAID, SELFPAY | PROVIDERS: Admitting Provider Physician Assistant; Emergency Provider Emergency Medicine; PCP Nurse Practitioner Family; Visit Provider Internal Medicine | DX: E10.621 Type 1 diabetes mellitus with foot ulcer (principal); L97.529 Non-pressure chronic ulcer of other part of left foot with unspecified severity | CPT/HCPCS: 99222 ==

== ENCOUNTER → 2024-10-17 23:47 | Outpatient (BNV) | payer MEDICAID, SELFPAY | PROVIDERS: Admitting Provider Physician Assistant; Emergency Provider Emergency Medicine; Visit Provider Internal Medicine | DX: R56.9 Unspecified convulsions (principal); G93.40 Encephalopathy, unspecified; R73.9 Hyperglycemia, unspecified; I96 Gangrene, not elsewhere classified; F10.90 Alcohol use, unspecified, uncomplicated; F10.20 Alcohol dependence, uncomplicated; G40.909 Epilepsy, unspecified, not intractable, without status epilepticus | CPT/HCPCS: 99223; 99232 ==

== ENCOUNTER → 2024-10-17 23:47 | Outpatient (BNV) | payer OTHER, SELFPAY | PROVIDERS: Admitting Provider Physician Assistant; Emergency Provider Emergency Medicine; Visit Provider Nurse Practitioner Psychiatric/Mental Health | DX: F10.90 Alcohol use, unspecified, uncomplicated (principal) | CPT/HCPCS: 99222 ==

== ENCOUNTER → 2024-10-17 23:47 | Outpatient (BNV) | payer MEDICAID, SELFPAY | PROVIDERS: Admitting Provider Physician Assistant; Emergency Provider Emergency Medicine; PCP Nurse Practitioner Family; Visit Provider Psychiatry & Neurology Neurology | DX: R56.9 Unspecified convulsions (principal) | CPT/HCPCS: 99222 ==

== ENCOUNTER 2024-11-13 12:50 | Inpatient (IN) | payer MEDICAID, SELFPAY ==
[2024-11-13] VITALS (7 sets, daily range): BP systolic 111–131; BP diastolic 69–93; PULSE 67–89; RESP 13–21; TEMP 36.7–37.3; O2SAT 94–98; BMI 47.4; BMI 26.2; BMI 23.8
--- NOTE | ~2024-11-13 | CT_ITS ---
EXAMINATION: CT CERVICAL SPINE WITHOUT CONTRAST CLINICAL INFORMATION: Status post fall. COMPARISON: None available. TECHNIQUE: Contiguous axial images through the cervical spine using 3 mm collimation with bone and soft tissue algorithm. Sagittal and coronal reformatted images in the bone algorithm. DLP: 394.[address] examination was performed using dose optimization techniques as appropriate, variously including the following: *Automated exposure control *Adjustment of mA and/or kV according to patient size (this includes techniques or standardized protocols for targeted exams where dose is matched to indication/reason for exam; i.e. extremities or head) *Use of iterative reconstruction technique FINDINGS: Craniocervical junction is intact with normal alignment. There is a metallic plate anchored with screws in the vertebral bodies of C5 and C6 and intervertebral disc spacer resulting in arthrodesis. Marginal osteophyte formation C3-4 C4-5 and C6-7 levels. Reverse curvature apex at C4-5. No gross malalignment between the vertebral bodies or the facet joints. C1 is intact. C2 is intact. C3 is intact. C4 is intact. C5 is intact. C6 is intact. C7 is intact. No prevertebral compartment hematoma. Tympanic cavities and mastoid cells are aerated. Pneumatized right petrous apex. CT/CT cervical spine wo IV con IMPRESSION: Multilevel cervical spondylosis without acute fracture or trauma-related listhesis. Fleischner guidelines were followed. Electronically signed by: Que Hernandez MD 11/13/2024 02:24 PM EDT
--- NOTE | ~2024-11-13 | CT_ITS ---
EXAMINATION: CT HEAD WITHOUT CONTRAST CLINICAL INFORMATION: slurred speech ?fall COMPARISON: October 18, 2024. TECHNIQUE: Contiguous axial imaging was performed from the skull base to vertex without intravenous administration of contrast. This CT examination was performed using dose optimization techniques as appropriate, variously including the following: *Automated exposure control *Adjustment of mA and/or kV according to patient size (this includes techniques or standardized protocols for targeted exams where dose is matched to indication/reason for exam; i.e. extremities or head) *Use of iterative reconstruction technique DLP: 746.48 mGy-cm FINDINGS: Limited due to patient's motion artifact and beam hardening artifact. No gross acute intracranial hemorrhage, mass effect, midline shift, hydrocephalus or herniation. Sanchez-white matter differentiation is normal. Bilateral multifocal patchy deep periventricular white matter hypodensities. Posterior cranial fossa contents demonstrated no acute intracranial hemorrhage or mass effect. Sellar/suprasellar region demonstrated no gross masses or focal hemorrhage. Craniocervical junction is intact with normal position of the cerebellar tonsils. No gross acute fracture in the bony calvarium. No air-fluid levels in the paranasal sinuses. Tympanic cavities and mastoid cells are aerated. Pneumatized right right petrous apex. There is a 1 cm partially calcified nodule beneath the skin in the right temporoparietal soft tissue scalp.. CT/CT head/brain wo IV con IMPRESSION: Limited by patient's motion artifact demonstrating no acute intracranial hemorrhage or acute fracture in the bony calvarium. Electronically signed by: Que Hernandez MD 11/13/2024 02:13 PM EDT
--- NOTE | 2024-11-13 12:51 | ED_ITS ---
HPI - General Adult General Chief complaint: Altered Mental Status Stated complaint: diabetic seizure Time Seen by Provider: 11/13/24 13:30 Source: patient and family (Brother) Mode of arrival: ambulatory Limitations: no limitations History of Present Illness ED Provider: DR. Patterson HPI narrative: 44-year-old male with PMH significant for alcohol use disorder with history of EtOH withdrawal and Wernicke's syndrome , T2 DM with recurrent DKA, HTN, seizure disorder presented today with his brother for evaluation of possible seizure, patient admitted to drinking alcohol on a daily basis last drink was earlier this morning he drank vodka, as per brother reported this is his typical presentation of alcohol intoxication but today is little worse than usual. Patient in the emergency department follow commands, able to provide history, AAO x3, speech is heavy slurred with difficulty articulating the words. Related Data Home Medications ?Medication ?Instructions ?Recorded ?Confirmed amlodipine 10 mg tablet 10 mg PO DAILY 10/18/24 10/18/24 famotidine 20 mg tablet 20 mg PO DAILY PRN Heartburn 10/18/24 10/18/24 ferrous gluconate 324 mg (38 mg 324 mg PO DAILY 10/18/24 10/18/24 iron) tablet furosemide 20 mg tablet 20 mg PO DAILY 10/18/24 10/18/24 insulin lispro 100 unit/mL See Protocol subcut TID 10/18/24 10/18/24 subcutaneous cartridge (Humalog U-100 Insulin) lacosamide 200 mg tablet 200 mg PO BID 10/18/24 10/18/24 lamotrigine 25 mg tablet 75 mg PO BID 10/18/24 10/18/24 losartan 25 mg tablet 25 mg PO DAILY 10/18/24 10/18/24 naltrexone microspheres 380 mg 380 mg IM Q28D 10/18/24 10/18/24 intramuscular suspension,extended release (Vivitrol) nicotine (polacrilex) 2 mg buccal 2 mg mucous membrane Q1H PRN 10/18/24 10/18/24 lozenge Nicotine Cravings oxcarbazepine 600 mg tablet 600 mg PO BID 10/18/24 10/18/24 vitamin B complex-folic acid 0.4 1 tab PO DAILY 10/18/24 10/18/24 mg tablet (B Complex 1 (with folic acid)) Previous Rx's ?Medication ?Instructions ?Recorded daptomycin 350 mg intravenous 620 mg IV Q24H #1 ea 10/23/24 solution dextrose 40 % oral gel (Glucose 10 g PO Q15M PRN hypocalcemia 10/23/24 Gel) #112.5 grams diphenhydramine HCl 25 mg capsule 25 mg PO TID PRN itching #10 caps 10/23/24 (Benadryl) folic acid 1 mg tablet 1 mg PO DAILY #30 tabs 10/23/24 glucagon 1 mg solution for 1 mg subcut Q20M PRN hypocalcemia 10/23/24 injection (Glucagon Emergency Kit) #1 ea insulin glargine 100 unit/mL 5 unit (0.05 mL) subcut BEDTIME 10/23/24 subcutaneous solution (Lantus #10 mL U-100 Insulin) metronidazole 500 mg tablet 500 mg PO Q8H #20 tabs 10/23/24 thiamine HCl (vitamin B1) 100 mg 100 mg PO DAILY #90 tabs 10/23/24 tablet Allergies Allergy/AdvReac Type Severity Reaction Status Date / Time chlordiazepoxide Allergy Unknown Nausea Verified 11/13/24 12:56 [From Librium] Penicillins Allergy Unknown Unknown Verified 11/13/24 12:56 levetiracetam [From Keppra] AdvReac Severe agitation Verified 11/13/24 12:56 Review of Systems 2 Review of Systems: All other systems are reviewed and are negative Constitutional: Reports as per HPI and Reports no additional constitutional complaints Eyes: Reports as per HPI and Reports no additional eye complaints Reports system reviewed and no additional complaints, except as documented Cardiovascular: Reports as per HPI and Reports no additional cardiovascular complaints Respiratory: Reports as per HPI and Reports no additional respiratory complaints Gastrointestinal: Reports as per HPI and Reports no additional gastrointestinal complaints Genitourinary: Reports no additional female genitourinary complaints Musculoskeletal: Reports no additional musculoskeletal complaints Skin/Breast: Reports system reviewed and no additional complaints, except as docu Psychiatric: Reports no additional psychiatric complaints Endocrine: Reports no additional endocrine complaints Hematologic/Lymphatic: Reports no additional hematologic/lymphatic complaints Allergic/Immunologic: Reports no additional allergic/immunologic complaints Reports system reviewed and no additional complaints, except as documented and Reports Abnormal speech present [facility] Past Medical History Medical History Type 1 diabetes Wernicke encephalopathy Alcohol withdrawal seizure Type 1 diabetes Alcohol dependence Seizure disorder HTN (hypertension) Social History Social History Household Members: Family Housing: Unknown / Unable to assess Patient Tobacco Use Status: Tobacco use Unknown Advance Directives: No Advance Directives Information Provided: Yes service: No Physical Exam ED Vital Signs: Vital Signs - 24 hr 11/13/24 12:51 11/13/24 13:20 11/13/24 14:10 Temperature 98.2 F 98.1 F 99.1 F Pulse Rate 89 86 79 Respiratory Rate 18 21 H 16 Blood Pressure 119/93 H 125/86 114/70 Pulse Oximetry 94 96 97 Oxygen Delivery Method Room Air Room Air Room Air BMI result Body Mass Index 26.2 Vital signs have been reviewed and appear to be correct. Blood pressure elevated. Heart rate normal. Respiratory rate normal. Temperature normal. Oxygen saturation normal. Appearance: Alert. Oriented X3. No acute distress. Head: Normal external exam. Normocephalic. Atraumatic. No Licea signs noted. No raccoon eyes noted Eyes: PERRLA. EOMI. Conjunctiva and sclera normal. Eyelids normal. ENT: TM's Normal. Pharynx normal. Uvula midline. Moist mucous membranes. No trismus noted. No drooling noted. No muffled voice noted. Neck: Normal inspection. Neck supple. FROM. No adenopathy. Thyroid Normal. No meningeal signs. No neck mass noted. CVS: Normal heart rate and rhythm. Heart sound normal. No murmurs noted. Pulses normal throughout. Respiratory: No respiratory distress. Painless inspiration. Breath sounds normal. No wheezes/rales/rhonchi noted. Chest nontender. No accessory muscle usage noted or decreased air movement noted. Abdomen: Soft and nontender. Bowel sounds normal in all 4 quadrants. No distention noted. No organomegaly noted. No visible injury noted. Back: No CVA tenderness. Full range of motion noted. Skin: Skin warm and dry. Normal skin color. Normal skin turgor. No rashes/lesions/lacerations noted. Extremities: No lower extremity edema. Extremities exhibit normal range of motion. Extremities nontender. Neuro: Oriented X 3. Cranial nerve exam: II-XII are grossly intact No motor deficit. No sensory deficit. Reflexes normal. NIH Stroke Scale Time: 13:42 Level of Consciousness: Alert Level of Consciousness Questions: Answers both questions correctly Level of Consciousness Commands: Performs both tasks correctly Best Gaze: Normal Visual: No visual loss Facial Palsy: Normal Motor Arm (Right): No drift Motor Arm (Left): No drift Motor Leg (Right): No drift Motor Leg (Left): No drift Limb Ataxia: Absent Sensory: Normal Best Language: No aphasia Dysarthia: Severe dysarthria Extinction and Inattention: No abnormality Score: 2 Course Course Course Narrative: This is a rapid medical exam performed by Miryam Kim NP: Additional HPI, ROS, PE not included below will be deferred to primary provider. 44 yo male accompanied by brother with PMHx of alcohol use disorder, seizures, T1DM, HTN. Brother states parents are out of town and requested a wellness check. Brother found the patient with severe speech changes and is unsure if this is alcohol or seizure related. Brother states glucometer went off for glucose of <70, is now 85 in triage. Brother states he does fall frequently but is unsure if he has fallen today. PE: A&O x3, speech heavily slurred, erratic intentional body movements, strength grossly equal all 4 extremites, difficulty obtaining full neuro exam in triage. Charge nurse notified, brought directly to room in ED. Plan: Labs, ETOH, JEFFERSON, UA, keppra level, imaging, EKG, POC Reevaluation(s) Reevaluation #1: Seizure, risk of alcohol withdrawal, metabolic encephalopathy. Start on phenobarb protocol to prevent alcohol withdrawal seizure. Continue with thiamine/folic acid for Wernicke's encephalopathy. Patient mental status is likely secondary to metabolic encephalopathy. Time: 14:40 Medications Administered Generic Name Dose Route Start Last Admin Trade Name Freq PRN Reason Stop Dose Admin Lactated Ringer's 1,000 mls @ 999 mls/hr 11/13/24 14:00 11/13/24 14:24 Lr IV 11/13/24 15:00 999 mls/hr .Q1H1M MAYUR Administration Discontinued Medications Generic Name Dose Route Start Last Admin Trade Name Freq PRN Reason Stop Dose Admin Folic Acid 1 mg/ Sodium 50.2 mls @ 100.4 mls/hr 11/13/24 13:47 11/13/24 14:26 Chloride IV 11/13/24 14:16 100.4 mls/hr ONCE ONE Administration Medical Decision Making Differential Diagnosis Differential Diagnoses: The differential diagnosis associated with the presentation includes (Electrolyte derangement, severe dehydration, alcohol intoxication, alcohol withdrawal, severe anemia, dehydration:) Admission/Observation Consideration of admission/observation: Escalation of care including admission/observation considered Lab Data MDM Lab Attestation statement: I reviewed the patient's lab results. 11/13/24 13:16 11/13/24 13:16 Labs: Lab Results 11/13/24 Range/Units 13:16 WBC 7.7 (4.8-10.8) X10*3/uL RBC 4.59 L (4.60-5.80) X10*6/uL Hgb 12.8 L (14.0-18.0) g/dl Hct 37.0 L (42.0-52.0) % MCV 80.6 (80.0-98.0) fL MCH 27.9 (27.0-33.0) pg MCHC 34.6 (31.0-36.0) g/dl RDW 15.5 (11.0-16.0) % Plt Count 300 (160-400) X10*3/uL MPV 9.1 L (9.4-12.4) fL Immature Gran % (Auto) 0.3 (0.0-0.4) % Neut % (Auto) 59.2 (45-73) % Lymph % (Auto) 24.9 (20-40) % [place] % (Auto) 11.6 H (2-11) % Eos % (Auto) 3.0 (0-4) % Baso % (Auto) 1.0 (0-2) % Lymph # (Auto) 1.9 (1.2-4.9) X10*3/uL [place] # (Auto) 0.9 (0.1-1.2) X10*3/uL Eos # (Auto) 0.2 (0.0-0.4) X10*3/uL Baso # (Auto) 0.1 (0.0-0.2) X10*3/uL Abs Immat Gran (auto) 0.02 (0.00-0.03) X10*3/uL Absolute Neuts (auto) 4.6 (2.0-8.3) x10*3/uL Absolute Nucleated RBC 0.000 (0.0-0.012) X10*3/uL Nucleated RBC % (auto) 0.0 (0.0-0.2) /100WBC Sodium 136 (135-145) mmol/L Potassium 4.0 (3.3-5.1) mmol/L Chloride 100 (96-108) mmol/L Carbon Dioxide 27 (22-29) mmol/L Anion Gap 13 (12-20) BUN 8 L (9-16) mg/dL Creatinine 0.81 (0.5-1.4) mg/dL Estim Creat Clear Calc 118.9 Estimated GFR > 60 Random Glucose 161 H (60-115) mg/dL Lactic Acid 3.2 H* (0.5-2.0) mmol/L Calcium 8.7 (8.4-10.2) mg/dL Total Bilirubin 0.3 (0.0-1.0) mg/dL AST 27 (5-37) U/L ALT 19 (0-40) U/L Alkaline Phosphatase 85 (39-117) U/L Ammonia 60 H (13-55) umol/L Total Protein 6.6 (6.5-8.0) g/dL Albumin 3.9 (3.5-5.0) g/dL Ethyl Alcohol 153 mg/dL Independent Interpretation I performed an independent interpretation of an: CT Scan (Head/cervical spine:Limited by patient's motion artifact demonstrating no acute intracranial hemorrhage or acute fracture in the bony calvarium.Multilevel cervical spondylosis without acute fracture or trauma-related listhesis. ) Radiology Impression Discussion of test interpretation with radiology: I have reviewed the radiologist's reading. Discharge Plan Discharge Clinical Impression: Acute metabolic encephalopathy, Alcohol withdrawal Patient Disposition: Admitted As Inpatient Prescriptions: No Action amlodipine 10 mg tablet 10 mg PO DAILY losartan 25 mg tablet 25 mg PO DAILY oxcarbazepine 600 mg tablet 600 mg PO BID Humalog U-100 Insulin 100 unit/mL cartridge See Protocol subcut TID Protocol: Insulin Correction Scale Less than or equal to 110 ---- Give (units): 0 111 to 150 Give (units): 0 151 to 200 Give (units): 2 201 to 250 Give (units): 4 251 to 300 Give (units): 6 301 to 350 Give (units): 8 Greater than 350 Give (units): 10 Call MD if Blood Glucose > : 350 nicotine (polacrilex) 2 mg lozenge 2 mg mucous membrane Q1H PRN (Reason: Nicotine Cravings) vitamin B complex-folic acid [B Complex 1 (with folic acid)] 0.4 mg tablet 1 tab PO DAILY Vivitrol 380 mg suspension,extended rel recon 380 mg IM Q28D ferrous gluconate 324 mg (38 mg iron) tablet 324 mg PO DAILY lacosamide 200 mg tablet 200 mg PO BID famotidine 20 mg Tablet 20 mg PO DAILY PRN (Reason: Heartburn) furosemide 20 mg tablet 20 mg PO DAILY lamotrigine 25 mg tablet 75 mg PO BID metronidazole 500 mg Tablet 500 mg PO Q8H Qty: 20 0RF folic acid 1 mg Tablet 1 mg PO DAILY Qty: 30 0RF daptomycin 350 mg Recon Soln 620 mg IV Q24H Qty: 1 0RF Rx Instructions: Daptomycin 620 mg IV daily for 6 weeks end date will be 12/03/24 thiamine HCl (vitamin B1) 100 mg tablet 100 mg PO DAILY Qty: 90 0RF insulin glargine [Lantus U-100 Insulin] 100 unit/mL solution 5 unit subcut BEDTIME Qty: 10 0RF diphenhydramine HCl [Benadryl] 25 mg capsule 25 mg PO TID PRN (Reason: itching) Qty: 10 0RF Glucagon Emergency Kit (human) 1 mg recon soln 1 mg subcut Q20M PRN (Reason: hypocalcemia) Qty: 1 0RF Rx Instructions: until target blood sugar attained dextrose [Glucose Gel] 40 % gel 10 g PO Q15M PRN (Reason: hypocalcemia) Qty: 112.5 0RF Rx Instructions: until symptoms of low blood sugar are controlled Print Language: Unable To Collect
--- NOTE | 2024-11-13 12:57 | ECG_ITS ---
Test Reason : AMS Blood Pressure : */* mmHG Vent. Rate : 88 BPM Atrial Rate : 88 BPM P-R Int : 168 ms QRS Dur : 96 ms QT Int : 356 ms P-R-T Axes : 68 -27 50 degrees QTcB Int : 430 ms Normal sinus rhythm Normal ECG When compared with ECG of 17-Oct-2024 21:06, No significant change was found Referred By: Jane Kim Electronically Signed By: LIZANDRO GAN
[2024-11-13 13:24] LABS: MANUAL DIFF FLAG NO
[2024-11-13 13:26] LABS: Basophils Absolute Auto 0.1 X10*3/uL (0.0-0.2); Eosinophils Absolute Auto 0.2 X10*3/uL (0.0-0.4); Hemoglobin 12.8 g/dl (14.0-18.0); Imm Gran Abs Auto 0.02 X10*3/uL (0.00-0.03); Imm Gran Pct Auto 0.3 % (0.0-0.4); Lymphocytes Absolute Auto 1.9 X10*3/uL (1.2-4.9); Lymphocytes Percent Auto 24.9 % (20-40); Mean Corpuscular HGB Conc 34.6 g/dl (31.0-36.0); Mean Corpuscular Hemoglobin 27.9 pg (27.0-33.0); Mean Corpuscular Volume 80.6 fL (80.0-98.0); Mean Platelet Volume 9.1 fL (9.4-12.4); Monocytes Absolute Auto 0.9 X10*3/uL (0.1-1.2); Monocytes Percent Auto 11.6 % (2-11); Neutrophils Absolute Auto 4.6 x10*3/uL (2.0-8.3); Neutrophils Percent Auto 59.2 % (45-73); Platelet Count 300 X10*3/uL (160-400); Red Blood Count 4.59 X10*6/uL (4.60-5.80); Red Cell Distribution Width 15.5 % (11.0-16.0); White Blood Count 7.7 X10*3/uL (4.8-10.8)
--- NOTE | 2024-11-13 13:30 | PC.NURSE ---
Pt placed in hospital gown with assist of RN and occupational therapist assistant. Pt's under garments remain on. Security not involved.
[2024-11-13 13:35] LABS: Ammonia 60 umol/L (13-55)
[2024-11-13 13:44] LABS: Alanine Aminotransferase 19 U/L (0-40); Albumin Level 3.9 g/dL (3.5-5.0); Alkaline Phosphatase 85 U/L (39-117); Anion Gap 13 (12-20); Aspartate Amino Transferase 27 U/L (5-37); Bilirubin Total 0.3 mg/dL (0.0-1.0); Blood Urea Nitrogen 8 mg/dL (9-16); Calcium 8.7 mg/dL (8.4-10.2); Carbon Dioxide 27 mmol/L (22-29); Chloride 100 mmol/L (96-108); Creatinine Clr Calc Pharmacy 118.9; Estimated Glomerular Filt Rate > 60; Ethanol 153 mg/dL; Glucose Random 161 mg/dL (60-115); Sodium 136 mmol/L (135-145); Total Protein 6.6 g/dL (6.5-8.0)
[2024-11-13 13:46] LABS: Lactic Acid 3.2 mmol/L (0.5-2.0)
[2024-11-13] MEDS: Lactated Ringers 1,000 ML 999 ML IV (14:24)
[2024-11-13] MEDS: Folic Acid 1 MG in 0.9 % Sodium Chloride 50 ML 100.4 MG IV (14:26)
[2024-11-13 14:56] LABS: Appearance Urine Clear; Color Urine Yellow; Glucose Urine UA 100 mg/dL (Negative); Leukocyte Esterase Urine Negative (Negative); Nitrite Urine Negative (Negative); PH 7.5 (5.0-9.0); Urine Blood Negative (Negative); Urine Ketones Negative (Negative); Urine Protein Negative (Neg-Trace)
--- OUTSIDE RECORDS SUMMARY | 2024-11-13 15:00 | XMS_ITS | Data Portability ---
Author Organization [facility], [place] Address [address] [place] [address] Care Team Providers Care Barrel Plater Name Role Phone CHRIS SAAVEDRA Referring Provider Unavailable DOLORES ZAYAS Primary Care Provider [phone] CHRIS SAAVEDRA Referring Provider Assessment Encounter Date Assessment Date Assessment LastModified by Organization Details LastModified Time 08/15/2021 08/15/2021 IMPRESSION: --Generalized tonic-clonic seizures. --Possible complex partial seizure during titration of lamotrigine; Data are reviewed: LABORATORIES August 14, 2021 sodium 134 and in general BMP normal; glucose 271 maximum He has had a breakthrough seizure after stopping the lamotrigine which had not prevented breakthrough seizure in any case at the small dose of 50 mg twice a day. Vimpat (lacosamide) is a medication that generally does not cause tiredness which is his main complaint about both oxcarbazepine and Depakote. Vimpat treats partial and secondarily generalized seizures and I believe he fits the second category. We discussed possible side effects and we agreed to try the lowest dose. SEIZURE MEDICATION MANAGEMENT REVIEW Lamotrigine made much worse mood at 75 mg twice daily after which we went back down to 50 mg twice daily. We have been attempting to titrate lamotrigine since spring 2019 with hopes of getting off Depakote because of tiredness. Depakote ER 1000 mg and oxcarbazepine 600 mg twice daily together prevent seizures. A smaller dose of either has been associated with breakthrough seizure. Also, he had worsening tremor +/- worsening mood on 2 attempts to reduce the Depakote ER below 1000 mg., Most recently June 2020, no worsening mood following. SEIZURE MEDICATION COMPLIANCE I will make no further efforts to have him work toward a medication dispenser with an alarm as he has been repeatedly resistant to this and a visiting nurse filling that machine. Moreover, he reports no further generalized seizures. He may now be reaching a point where he can take his medication dependably, perhaps because it is so important from the point of insulin control and his awareness of this has increased. Seizure details: Seizure August 13, 2021, taken to [facility] ER five workers were needed to get me into the ambulance, glucose was high in the 200s only so this was likely not the issue. Alcohol: He has been dry since 2019 he has explained. They did not check an alcohol level. Seizure July 2020 may have related to June 2020 Depakote ER reduction but also may have related to missing medication one or 2 days prior to the seizure. This is why we increased Depakote back to 1000mg qd in August 2020. Tremor worsened twice now each time Depakote ER was reduced from 1000 g down to 750 mg. The first time there was also increased anger. This time at the end of July, increased anger is reported only with the addition of levetiracetam. We will note this with any future Depakote taper. November 20, 2019 office visit discussion: His possible small seizure in the hospital with problems with diabetes is not likely related to medication changes as the only thing we have done is increased antiseizure medication by adding on lamotrigine. We will therefore focus on his side effects again. June 12, 2019 seizure breakthrough likely related to decrease of Depakote ER 1500 mg -> 1000 mg, while on oxcarbazepine 450 mg twice a day. March 2019: Depakote has caused side effects at a low normal level, at which level there was breakthrough seizure at the end of March 2019. We cannot increase Depakote because of the side effects. This is why we have added Trileptal. There have been counterintuitive changes in his side effect symptoms on Depakote and oxcarbazepine. I do not have an easy explanation for all of this. For the temper part, there may be an undiagnosed mood disorder for which Depakote ER has been helping, smoothing out his temper. His mother would disagree, finding his temper worse on higher doses of Depakote ER, better today. Both oxcarbazepine and Depakote ER may cause tiredness. Our goal has been to get off Depakote. Both patient and mother have wished discontinuation of Depakote ER, although for different reasons: He as he feels it has caused tiredness and tremor, she has felt it has worsened irritability. He had initial tiredness titrating oxcarbazepine to 450 mg twice a day which went away. He had only occasionally yawning during the day with subsequent titration of oxcarbazepine to 600 mg twice a day leading to July 29, 2019. This is the lowest dose of oxcarbazepine, combined with Depakote ER 1000 mg daily, and which he has not had a seizure, June 12, 2019 seizure having occurred on oxcarbazepine 450 mg twice a day/Depakote ER 1000 mg daily. Diagnostic pathway: He has seizure disorder independent of alcohol provocation although when I met him this was not certain. Seizure seems to have been triggered by alcohol in the past. Of the 2 seizures that have occurred since he reports alcohol cessation in September, one had associated blood glucose >400 which can be associated with seizure. The other did not have measured blood glucose sufficiently abnormal to make provoked seizure likely. Therefore, he likely has seizure disorder independent of alcohol or hyperglycemia although both have contributed partially to a portion of his events. In any case, antiseizure medication is indicated as, even if there are occult provoking circumstances for all his seizures, we cannot definitively remove these provoking circumstances. 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 There is no numbness to make a prototypical case for ulnar neuropathy. I cannot rule out a more generalized issue. I will continue to monitor for any worsening weakness and well consider addressing this when the central issue of seizure control is optimally addressed. There is reduced vibratory sensation likely related to diabetes. I will check B12 studies. Please follow-up with your primary care provider, and bring your mother, to discuss your episodes every month or so where you just dont want to get out of bed and sleep all the time and dont take your medication. These episodes seem to come before your seizure and primary care may be able to help with these episodes. PLAN Henok Danielle Emmett August 15, 2021 Start Vimpat as antiseizure medication Vimpat 50 mg tablet twice daily Vimpat can occasionally cause side effects of dizziness or nausea. If side effects are mild, we waited a few days for them to go away. If they do not go away or if they are not mild, stop the medicine and call me. CONTINUE Depakote ER 1000 mg every evening. CONTINUE oxcarbazepine 600 mg tablets, 1.0 tablets (600 mg) twice a day. Please keep an eye on tiredness that you have related both to oxcarbazepine and Depakote. Please keep an eye on your mood. Please keep an eye on your side effect of seeing something, not clearly, out of the side of your vision every once in a while. Let see if this goes away as your body gets more used to the medication. Follow-up in 4 weeks, Henok Estevez M.D. PhD [email or web address] Not available 08/15/2021 09:35:57 01/24/2023 01/24/2023 IMPRESSION: --Generalized tonic-clonic seizures. I am happy to take over his lacosamide 200 mg twice a day and his oxcarbazepine 600 mg twice daily. He is having no seizures. His previous tiredness and tremor when he was on oxcarbazepine and Depakote ER are gone and he disliked those side effects significantly. He has a little tippiness now. I cannot exclude this is from lacosamide but his gait is stable without any stumbling or stepping out today. I will make no changes today, just take over the medications. I will bring him back in 5 months and we will reevaluate. He is still drinking. I ask if he has a psychiatric healthcare provider and he does not. He would not be opposed to doing that. I tell him that some people drink because of an otherwise untreated mood disorder. I cannot say that is the case for him but having psychiatry consult on this possibility and perhaps help him stop drinking might be useful to him and I do not think there is a downside to investigating that direction. He agreed to discuss this with his new primary care provider. SEIZURE MEDICATION COMPLIANCE August 2021 I will make no further efforts to have him work toward a medication dispenser with an alarm as he has been repeatedly resistant to this and a visiting nurse filling that machine. Moreover, he reports no further generalized seizures. He may now be reaching a point where he can take his medication dependably, perhaps because it is so important from the point of insulin control and his awareness of this has increased. Diagnostic pathway: He has seizure disorder independent of alcohol provocation although when I met him this was not certain. Seizure seems to have been triggered by alcohol in the past. Of the 2 seizures that have occurred after he reports alcohol cessation, one had associated blood glucose >400 which can be associated with seizure. The other did not have measured blood glucose sufficiently abnormal to make provoked seizure likely. Therefore, he likely has seizure disorder independent of alcohol or hyperglycemia although both have contributed partially to a portion of his events. In any case, antiseizure medication is indicated as, even if there are occult provoking circumstances for all his seizures, we cannot definitively remove these provoking circumstances. 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 There is no numbness to make a prototypical case for ulnar neuropathy. I cannot rule out a more generalized issue. I will continue to monitor for any worsening weakness and well consider addressing this when the central issue of seizure control is optimally addressed. There is reduced vibratory sensation likely related to diabetes. I will check B12 studies. Please follow-up with your primary care provider, and bring your mother, to discuss your episodes every month or so where you just dont want to get out of bed and sleep all the time and dont take your medication. These episodes seem to come before your seizure and primary care may be able to help with these episodes. PLAN Henok Danielle Emmett January 24, 2023 Please talk to your new PCP provider about a referral for psychiatric evaluation as there is a possibility that you are drinking to treat a mood disorder that could be treated in a better way? t he alcohol causes two dangerous situations for you, repeatedly: Hyperglycemia and seizure. CONTINUE Vimpat as antiseizure medication Vimpat 200 mg tablet twice daily Vimpat can occasionally cause side effects of dizziness or nausea. If side effects are mild, we waited a few days for them to go away. If they do not go away or if they are not mild, stop the medicine and call me. CONTINUE oxcarbazepine 600 mg tablets, 1.0 tablets (600 mg) twice a day. Please keep an eye on your side effect of seeing something, not clearly, out of the side of your vision every once in a while. Let see if this goes away as your body gets more used to the medication. Follow-up in 5 months Henok Estevez M.D. PhD [facility] Not available 01/24/2023 17:08:54 03/26/2023 03/26/2023 IMPRESSION: --Generalized tonic-clonic seizures. --March 27, 2023: March 14 seizure reported, still drinking alcohol, possibly missed medication. With one and possibly two triggers, there is no indication for changing his antiseizure medication. We will try to find out the emergency room discharge summary from March 14, 2023 I ask his father to actually be present at every medication administration and he thinks he can do this. I asked the patient to work with primary care to understand why he started but then stopped seeing psychiatric healthcare provider. We again discussed that I believe that is the best path to help him move away from alcohol (a lifelong struggle according to his father), short of inpatient rehab, if he is unable to stop alcohol on his own. >>>>>>>>>>January 24, 2023 I am happy to take over his lacosamide 200 mg twice a day and his oxcarbazepine 600 mg twice daily. He is having no seizures. His previous tiredness and tremor when he was on oxcarbazepine and Depakote ER are gone and he disliked those side effects significantly. He has a little tippiness now. I cannot exclude this is from lacosamide but his gait is stable without any stumbling or stepping out today. I will make no changes today, just take over the medications. I will bring him back in 5 months and we will reevaluate. He is still drinking. I ask if he has a psychiatric healthcare provider and he does not. He would not be opposed to doing that. I tell him that some people drink because of an otherwise untreated mood disorder. I cannot say that is the case for him but having psychiatry consult on this possibility and perhaps help him stop drinking might be useful to him and I do not think there is a downside to investigating that direction. He agreed to discuss this with his new primary care provider. SEIZURE MEDICATION COMPLIANCE August 2021 I will make no further efforts to have him work toward a medication dispenser with an alarm as he has been repeatedly resistant to this and a visiting nurse filling that machine. Moreover, he reports no further generalized seizures. He may now be reaching a point where he can take his medication dependably, perhaps because it is so important from the point of insulin control and his awareness of this has increased. Diagnostic pathway: He has seizure disorder independent of alcohol provocation although when I met him this was not certain. Seizure seems to have been triggered by alcohol in the past. Of the 2 seizures that have occurred after he reports alcohol cessation, one had associated blood glucose >400 which can be associated with seizure. The other did not have measured blood glucose sufficiently abnormal to make provoked seizure likely. Therefore, he likely has seizure disorder independent of alcohol or hyperglycemia although both have contributed partially to a portion of his events. In any case, antiseizure medication is indicated as, even if there are occult provoking circumstances for all his seizures, we cannot definitively remove these provoking circumstances. 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 There is no numbness to make a prototypical case for ulnar neuropathy. I cannot rule out a more generalized issue. I will continue to monitor for any worsening weakness and well consider addressing this when the central issue of seizure control is optimally addressed. There is reduced vibratory sensation likely related to diabetes. I will check B12 studies. Please follow-up with your primary care provider, and bring your mother, to discuss your episodes every month or so where you just dont want to get out of bed and sleep all the time and dont take your medication. These episodes seem to come before your seizure and primary care may be able to help with these episodes. PLAN Henok Danielle Emmett March 26, 2023 Please talk to your new PCP provider about a referral for psychiatric evaluation as there is a possibility that you are drinking to treat a mood disorder that could be treated in a better way? t he alcohol causes two dangerous situations for you, repeatedly: Hyperglycemia and seizure. CONTINUE Vimpat as antiseizure medication Vimpat 200 mg tablet twice daily Vimpat can occasionally cause side effects of dizziness or nausea. If side effects are mild, we waited a few days for them to go away. If they do not go away or if they are not mild, stop the medicine and call me. CONTINUE oxcarbazepine 600 mg tablets, 1.0 tablets (600 mg) twice a day. Please keep an eye on your side effect of seeing something, not clearly, out of the side of your vision every once in a while. Let see if this goes away as your body gets more used to the medication. Follow-up in 5 months Henok Estevez M.D. PhD [facility] Not available 03/26/2023 14:40:16 06/26/2023 06/26/2023 IMPRESSION: --Generalized tonic-clonic seizures. --March 27, 2023: March 14 seizure reported, still drinking alcohol, possibly missed medication. -- June 26, 2023 recent hospital admission for hyperglycemia but no seizures. In the absence of seizures, I will make no changes to his antiseizure medications as detailed below. His hyperglycemia may be because he is missing or making mistakes with medication even though he does not notice it. Alternatively, his drinking might cause significant dysglycemia. I defer to primary care on this issue. I defer to primary care on helping out and getting psychiatric help: I believe his frequent recurrent hospitalizations basically relate to behavioral issues that are suboptimally treated. The patient favors outpatient psychiatry but has not been able to move in that direction. Perhaps the time has come for inpatient psychiatry/acute rehab and alcohol detoxification. I defer to primary care on this. I am prescribing oxcarbazepine and lacosamide for seizure prevention. However, he is also on lamotrigine 75 mg twice a day from primary care. I am unclear why primary care is prescribing this. I last prescribed lamotrigine and attempt to control seizures in place of Depakote, in 2020, stopping on April 27 because 50 mg twice a day did not help in seizure protection or for energy and his mood got worse and his mood got even worse up at 75 mg twice daily. I believe the lamotrigine plausibly relates to part of his intermittent bad mood. I defer to primary care on this, prescriber currently being Dolores Zayas. I see her as a practitioner in [facility], when I google her. I will try to have our office contact her for me to speak to. --March 27, 2023: With one and possibly two triggers for breakthrough seizure, there is no indication for changing his antiseizure medication. We will try to find out the emergency room discharge summary from March 14, 2023 I ask his father to actually be present at every medication administration and he thinks he can do this. I asked the patient to work with primary care to understand why he started but then stopped seeing psychiatric healthcare provider. We again discussed that I believe that is the best path to help him move away from alcohol (a lifelong struggle according to his father), short of inpatient rehab, if he is unable to stop alcohol on his own. >>>>>>>>>>January 24, 2023 I am happy to take over his lacosamide 200 mg twice a day and his oxcarbazepine 600 mg twice daily. He is having no seizures. His previous tiredness and tremor when he was on oxcarbazepine and Depakote ER are gone and he disliked those side effects significantly. He has a little tippiness now. I cannot exclude this is from lacosamide but his gait is stable without any stumbling or stepping out today. I will make no changes today, just take over the medications. I will bring him back in 5 months and we will reevaluate. He is still drinking. I ask if he has a psychiatric healthcare provider and he does not. He would not be opposed to doing that. I tell him that some people drink because of an otherwise untreated mood disorder. I cannot say that is the case for him but having psychiatry consult on this possibility and perhaps help him stop drinking might be useful to him and I do not think there is a downside to investigating that direction. He agreed to discuss this with his new primary care provider. SEIZURE MEDICATION COMPLIANCE August 2021 I will make no further efforts to have him work toward a medication dispenser with an alarm as he has been repeatedly resistant to this and a visiting nurse filling that machine. Moreover, he reports no further generalized seizures. He may now be reaching a point where he can take his medication dependably, perhaps because it is so important from the point of insulin control and his awareness of this has increased. Diagnostic pathway: He has seizure disorder independent of alcohol provocation although when I met him this was not certain. Seizure seems to have been triggered by alcohol in the past. Of the 2 seizures that have occurred after he reports alcohol cessation, one had associated blood glucose >400 which can be associated with seizure. The other did not have measured blood glucose sufficiently abnormal to make provoked seizure likely. Therefore, he likely has seizure disorder independent of alcohol or hyperglycemia although both have contributed partially to a portion of his events. In any case, antiseizure medication is indicated as, even if there are occult provoking circumstances for all his seizures, we cannot definitively remove these provoking circumstances. 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 There is no numbness to make a prototypical case for ulnar neuropathy. I cannot rule out a more generalized issue. I will continue to monitor for any worsening weakness and well consider addressing this when the central issue of seizure control is optimally addressed. There is reduced vibratory sensation likely related to diabetes. I will check B12 studies. Please follow-up with your primary care provider, and bring your mother, to discuss your episodes every month or so where you just dont want to get out of bed and sleep all the time and dont take your medication. These episodes seem to come before your seizure and primary care may be able to help with these episodes. PLAN Henok Lolis Emmett June 26, 2023 Please talk to your new PCP provider about a referral for psychiatric evaluation as there is a possibility that you are drinking to treat a mood disorder that could be treated in a better way? t he alcohol causes two dangerous situations for you, repeatedly: Hyperglycemia and seizure.Consider inpatient psychiatric hospitalization and alcohol detoxification. CONTINUE Vimpat as antiseizure medication Vimpat 200 mg tablet twice daily Vimpat can occasionally cause side effects of dizziness or nausea. If side effects are mild, we waited a few days for them to go away. If they do not go away or if they are not mild, stop the medicine and call me. CONTINUE oxcarbazepine 600 mg tablets, 1.0 tablets (600 mg) twice a day. Please keep an eye on your side effect of seeing something, not clearly, out of the side of your vision every once in a while. Let see if this goes away as your body gets more used to the medication. Follow-up in 5 months Henok Estevez M.D. PhD [facility] Not available 06/26/2023 15:29:30 10/30/2023 10/30/2023 IMPRESSION: --Generalized tonic-clonic seizures. --March 27, 2023: March 14 seizure reported, still drinking alcohol, possibly missed medication. -- June 26, 2023 recent hospital admission for hyperglycemia but no seizures. --October 30, 2023 2 seizures, still take his own medications. --October 30, 2023 The situation is unchanged, with breakthrough seizures, and my strong suspicion that this relates to mistakes with taking medication. Also unchanged is my uncertainty about the recent appearance of lamotrigine as an additional medication, added dose that I previously tried with negative mood symptoms emerging per patient (see June 26, 2023 chart comments by myself for details). I will again try to contact his primary care physician to see if a better strategy may be pursued. In the meanwhile, I will make no changes to the medications I prescribe. -- June 26, 2023 In the absence of seizures, I will make no changes to his antiseizure medications as detailed below. His hyperglycemia may be because he is missing or making mistakes with medication even though he does not notice it. Alternatively, his drinking might cause significant dysglycemia. I defer to primary care on this issue. I defer to primary care on helping out and getting psychiatric help: I believe his frequent recurrent hospitalizations basically relate to behavioral issues that are suboptimally treated. The patient favors outpatient psychiatry but has not been able to move in that direction. Perhaps the time has come for inpatient psychiatry/acute rehab and alcohol detoxification. I defer to primary care on this. I am prescribing oxcarbazepine and lacosamide for seizure prevention. However, he is also on lamotrigine 75 mg twice a day from primary care. I am unclear why primary care is prescribing this. I last prescribed lamotrigine and attempt to control seizures in place of Depakote, in 2020, stopping on April 27 because 50 mg twice a day did not help in seizure protection or for energy and his mood got worse and his mood got even worse up at 75 mg twice daily. I believe the lamotrigine plausibly relates to part of his intermittent bad mood. I defer to primary care on this, prescriber currently being Dolores Zayas. I see her as a practitioner in [facility] locations, when I google her. I will try to have our office contact her for me to speak to. --March 27, 2023: With one and possibly two triggers for breakthrough seizure, there is no indication for changing his antiseizure medication. We will try to find out the emergency room discharge summary from March 14, 2023 I ask his father to actually be present at every medication administration and he thinks he can do this. I asked the patient to work with primary care to understand why he started but then stopped seeing psychiatric healthcare provider. We again discussed that I believe that is the best path to help him move away from alcohol (a lifelong struggle according to his father), short of inpatient rehab, if he is unable to stop alcohol on his own. >>>>>>>>>>January 24, 2023 I am happy to take over his lacosamide 200 mg twice a day and his oxcarbazepine 600 mg twice daily. He is having no seizures. His previous tiredness and tremor when he was on oxcarbazepine and Depakote ER are gone and he disliked those side effects significantly. He has a little tippiness now. I cannot exclude this is from lacosamide but his gait is stable without any stumbling or stepping out today. I will make no changes today, just take over the medications. I will bring him back in 5 months and we will reevaluate. He is still drinking. I ask if he has a psychiatric healthcare provider and he does not. He would not be opposed to doing that. I tell him that some people drink because of an otherwise untreated mood disorder. I cannot say that is the case for him but having psychiatry consult on this possibility and perhaps help him stop drinking might be useful to him and I do not think there is a downside to investigating that direction. He agreed to discuss this with his new primary care provider. SEIZURE MEDICATION COMPLIANCE August 2021 I will make no further efforts to have him work toward a medication dispenser with an alarm as he has been repeatedly resistant to this and a visiting nurse filling that machine. Moreover, he reports no further generalized seizures. He may now be reaching a point where he can take his medication dependably, perhaps because it is so important from the point of insulin control and his awareness of this has increased. Diagnostic pathway: He has seizure disorder independent of alcohol provocation although when I met him this was not certain. Seizure seems to have been triggered by alcohol in the past. Of the 2 seizures that have occurred after he reports alcohol cessation, one had associated blood glucose >400 which can be associated with seizure. The other did not have measured blood glucose sufficiently abnormal to make provoked seizure likely. Therefore, he likely has seizure disorder independent of alcohol or hyperglycemia although both have contributed partially to a portion of his events. In any case, antiseizure medication is indicated as, even if there are occult provoking circumstances for all his seizures, we cannot definitively remove these provoking circumstances. 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 There is no numbness to make a prototypical case for ulnar neuropathy. I cannot rule out a more generalized issue. I will continue to monitor for any worsening weakness and well consider addressing this when the central issue of seizure control is optimally addressed. There is reduced vibratory sensation likely related to diabetes. I will check B12 studies. Please follow-up with your primary care provider, and bring your mother, to discuss your episodes every month or so where you just dont want to get out of bed and sleep all the time and dont take your medication. These episodes seem to come before your seizure and primary care may be able to help with these episodes. PLAN Henok Christine October 30, 2023 Please talk to your new PCP provider about a referral for psychiatric evaluation as there is a possibility that you are drinking to treat a mood disorder that could be treated in a better way? t he alcohol causes two dangerous situations for you, repeatedly: Hyperglycemia and seizure.Consider inpatient psychiatric hospitalization and alcohol detoxification. Please continue to consider (you have not wanted to) and arrangement where someone comes in to watch you take your medications to make sure there are no mistakes and that might cause breakthrough seizure. CONTINUE Vimpat as antiseizure medication Vimpat 200 mg tablet twice daily Vimpat can occasionally cause side effects of dizziness or nausea. If side effects are mild, we waited a few days for them to go away. If they do not go away or if they are not mild, stop the medicine and call me. CONTINUE oxcarbazepine 600 mg tablets, 1.0 tablets (600 mg) twice a day. Please keep an eye on your side effect of seeing something, not clearly, out of the side of your vision every once in a while. Let see if this goes away as your body gets more used to the medication. Follow-up in 5 months Henok Estevez M.D. PhD [facility] [email or web address] Not available 10/30/2023 14:40:17 Plan of Treatment Reminders Order Date Submit Date Provider Last Modified By Organization Details Last Modified Time Details Appointments None recorded. Lab None recorded. Referral None recorded. Procedures None recorded. Surgeries None recorded. Imaging None recorded. Medication Orders oxcarbazepi ne 600 mg tablet 2023 024 [facility] [address] [place], [id number], 4 14:38:51 oxcarbazepi ne 600 mg tablet 2022 023 [facility] [address] [place], [id number], 3 15:18:01 Vimpat 200 mg tablet 2022 023 [facility] [address] [place], [id number], 3 14:36:47 oxcarbazepi ne 600 mg tablet 2022 023 [facility] [address] [place], [id number], 3 14:36:47 Vimpat 200 mg tablet 2022 023 [facility] [address] [place], [id number], 3 17:11:00 oxcarbazepi ne 600 mg tablet 2022 023 [facility] [address] [place] [address], [id number], 3 17:11:00 Vimpat 50 mg tablet 2021 022 [email or web address] Not available 09:36:34 Patient TargetsNo targets recorded. Patient Instructions Encounter Date Encounter Id Patient Instructions Last Modified By Organization Details Last Modified Time 08/15/2021 [id number] PREVIOUS TREATME NT April 27, 2021: STOP the lamotrigine 100 mg tablets, 1/2 tablet twice a day, because it has not helped or given more energy. higher : mood gets worse. Lamotrigine increase, 50mg bid to 75mg bid correlated with worsened irritability. October 07 2020 Levetiracetam 750 mg twice a day after July 28, 2020 seizure: Itchiness and increased anger, reminiscent of similar side effects on this medication in the remote past.Itchiness but not clearly increased anger are reduced with discontinuation Depakote ER 750 mg, worse shaking (counterintuitive), worse anger (per patient) August 29, 2019 (, concomitant oxcarbazepine 600 mg twice a day) Depakote ER 1500 mg, bad thoughts late summer 2018 [email or web address] Not available 08/15/2021 09:09:17 01/24/2023 [id number] PREVIOUS TREATME NT ~Spring 2021 by PCP Depakote ER 100mg qd d/c: January 24 2023: resolved tiredness and tremor; context: Depakote ER 1000 mg and oxcarbazepine 600 mg twice daily together prevent seizures. A smaller dose of either has been associated with breakthrough seizure. Also, he had worsening tremor +/- worsening mood on 2 attempts to reduce the Depakote ER below 1000 mg., Most recent before d/c: June 2020 April 27, 2021: STOP the lamotrigine 100 mg tablets, 1/2 tablet twice a day, because it has not helped or given more energy. higher : mood gets worse. Lamotrigine increase, 50mg bid to 75mg bid correlated with worsened irritability. October 07 2020 Levetiracetam 750 mg twice a day after July 28, 2020 seizure: Itchiness and increased anger, reminiscent of similar side effects on this medication in the remote past.Itchiness but not clearly increased anger are reduced with discontinuation Depakote ER 750 mg, worse shaking (counterintuitive), worse anger (per patient) August 29, 2019 (, concomitant oxcarbazepine 600 mg twice a day) Depakote ER 1500 mg, bad thoughts late summer 2018 Discussion across issues of diagnoses and management and same day associated chart review and management greater than 50% greater than 70 minutes [email or web address] Not available 01/24/2023 17:09:14 03/26/2023 [id number] PREVIOUS TREATME NT ~Spring 2021 by PCP Depakote ER 100mg qd d/c: January 24 2023: resolved tiredness and tremor; context: Depakote ER 1000 mg and oxcarbazepine 600 mg twice daily together prevent seizures. A smaller dose of either has been associated with breakthrough seizure. Also, he had worsening tremor +/- worsening mood on 2 attempts to reduce the Depakote ER below 1000 mg., Most recent before d/c: June 2020 April 27, 2021: STOP the lamotrigine 100 mg tablets, 1/2 tablet twice a day, because it has not helped or given more energy. higher : mood gets worse. Lamotrigine increase, 50mg bid to 75mg bid correlated with worsened irritability. October 07 2020 Levetiracetam 750 mg twice a day after July 28, 2020 seizure: Itchiness and increased anger, reminiscent of similar side effects on this medication in the remote past.Itchiness but not clearly increased anger are reduced with discontinuation Depakote ER 750 mg, worse shaking (counterintuitive), worse anger (per patient) August 29, 2019 (, concomitant oxcarbazepine 600 mg twice a day) Depakote ER 1500 mg, bad thoughts late summer 2018 Discussion across issues of diagnoses and management and same day associated chart review and management greater than 50% greater than 40 minutes [email or web address] Not available 03/26/2023 14:40:19 06/26/2023 [id number] PREVIOUS TREATME NT ~Spring 2021 by PCP Depakote ER 100mg qd d/c: January 24 2023: resolved tiredness and tremor; context: Depakote ER 1000 mg and oxcarbazepine 600 mg twice daily together prevent seizures. A smaller dose of either has been associated with breakthrough seizure. Also, he had worsening tremor +/- worsening mood on 2 attempts to reduce the Depakote ER below 1000 mg., Most recent before d/c: June 2020 April 27, 2021: STOP the lamotrigine 100 mg tablets, 1/2 tablet twice a day, because it has not helped or given more energy. higher : mood gets worse. Lamotrigine increase, 50mg bid to 75mg bid correlated with worsened irritability. October 07 2020 Levetiracetam 750 mg twice a day after July 28, 2020 seizure: Itchiness and increased anger, reminiscent of similar side effects on this medication in the remote past.Itchiness but not clearly increased anger are reduced with discontinuation Depakote ER 750 mg, worse shaking (counterintuitive), worse anger (per patient) August 29, 2019 (, concomitant oxcarbazepine 600 mg twice a day) Depakote ER 1500 mg, bad thoughts late summer 2018 Discussion across issues of diagnoses and management and same day associated chart review and management greater than 50% greater than 40 minutes [email or web address] Not available 06/26/2023 14:58:14 10/30/2023 [id number] PREVIOUS TREATME NT ~Spring 2021 by PCP Depakote ER 100mg qd d/c: January 24 2023: resolved tiredness and tremor; context: Depakote ER 1000 mg and oxcarbazepine 600 mg twice daily together prevent seizures. A smaller dose of either has been associated with breakthrough seizure. Also, he had worsening tremor +/- worsening mood on 2 attempts to reduce the Depakote ER below 1000 mg., Most recent before d/c: June 2020 April 27, 2021: STOP the lamotrigine 100 mg tablets, 1/2 tablet twice a day, because it has not helped or given more energy. higher : mood gets worse. Lamotrigine increase, 50mg bid to 75mg bid correlated with worsened irritability. October 07 2020 Levetiracetam 750 mg twice a day after July 28, 2020 seizure: Itchiness and increased anger, reminiscent of similar side effects on this medication in the remote past.Itchiness but not clearly increased anger are reduced with discontinuation Depakote ER 750 mg, worse shaking (counterintuitive), worse anger (per patient) August 29, 2019 (, concomitant oxcarbazepine 600 mg twice a day) Depakote ER 1500 mg, bad thoughts late summer 2018 Discussion across issues of diagnoses and management and same day associated chart review and management greater than 50% greater than 40 minutes [email or web address] Not available 10/30/2023 14:15:12 Reason for Referral None Reported. Procedures Surgical History Date Name Laterality Status Provider Name and Address Organization Details Recorded Time 10/30/2023 DATA REVIEW completed Henok Estevez MD [address] [place] [address] [place], [phone], [facility] 10/30/2023 14:15:12 06/26/2023 DATA REVIEW completed Henok Estevez MD [address] [place] [address] [place], [phone], [facility] 06/26/2023 14:58:14 03/26/2023 DATA REVIEW completed Henok Estevez MD [address] [place] [address] [place], [phone], [facility] 03/26/2023 14:14:20 01/24/2023 DATA REVIEW completed Henok Estevez MD [address] [place] [address] [place], [phone], [facility] 01/24/2023 16:59:58 08/15/2021 DATA REVIEW completed Henok Estevez MD [address] [place] [address] [place], [phone], [facility] 08/15/2021 09:31:24 04/27/2021 DATA REVIEW completed Henok Estevez MD [address] [place], [place] [address], [phone], [facility] 04/27/2021 14:25:23 12/08/2020 DATA REVIEW completed Henok Estevez MD [address] [place], [place] [address], [phone], [facility] [employer] [facility] 12/08/2020 09:29:28 11/11/2020 DATA REVIEW completed Henok Estevez MD [address] [place], [place] [address], [phone], [facility] 11/11/2020 12:05:42 Imaging Results None recorded. Procedure Notes None recorded. Medical Equipment None Reported. Medications Name Sig Start Date Stop Date Status Note LastModified by Organization Details LastModified Time BD Alcohol Swabs USE DIRECTED SIX TIMES DAILY active Not Available Not Available No t Available acetaminoph en 325 mg tablet TAKE 2 TABLETS (650 MG TOTAL) BY MOUTH EVERY 6 (SIX) HOURS NEEDED FOR PAIN active Not Available Not Available No t Available atorvastati n 10 mg tablet TAKE 1 TABLET BY MOUTH EVERYDAY AT BEDTIME active Not Available Not Available No t Available methylpheni date 10 mg tablet TAKE 1 TABLET BY MOUTH NEEDED IN THE AFTERNOON FOR 28 DAYS active Not Available Not Available No t Available naltrexone 50 mg tablet TAKE 1 TABLET BY MOUTH EVERY DAY active Not Available Not Available No t Available lisinopril 20 mg tablet TAKE 1 TABLET BY MOUTH EVERY DAY active Not Available Not Available No t Available Lantus U-100 Insulin 100 unit/mL subcutaneou s solution INJECT 20 UNITS UNDER THE SKIN ONCE DAILY MAY ADJUST BY 2-3 UNITS WEEKLY NEEDED TO [employer]. MAX 30 UNITS PER DAY active Not Available Not Available No t Available thiamine HCl (vitamin B1) 100 mg tablet TAKE 1 TABLET BY MOUTH EVERY DAY active Not Available Not Available No t Available oxcarbazepi ne 300 mg tablet TAKE 2 TABLETS BY MOUTH TWICE A DAY active Not Available Not Available No t Available amlodipine 5 mg tablet TAKE 1 TABLET BY MOUTH EVERY DAY active Not Available Not Available No t Available sulfamethox azole 800 mg-trimetho prim 160 mg tablet TAKE 1 TABLET BY MOUTH EVERY 12 HOURS FOR 10 DAYS active Not Available Not Available No t Available Nicotrol 10 mg inhalation cartridge INHALE 1 CART EVERY 2 HOURS NEEDED active Not Available Not Available No t Available lamotrigine 25 mg tablet TAKE 3 TABLETS BY MOUTH TWICE A DAY active Not Available Not Available No t Available cefadroxil 500 mg capsule active Not Available Not Available Not Available famotidine 20 mg tablet TAKE 1 TABLET BY MOUTH TWICE A DAY active Not Available Not Available No t Available Humalog U-100 Insulin 100 unit/mL subcutaneou s solution INJECT SIX UNIT SUBCUTANE OUSLY THREE TIMES PER DAY active Not Available Not Available No t Available amlodipine 10 mg tablet TAKE 1 TABLET BY MOUTH EVERY DAY active Not Available Not Available No t Available pantoprazol e 40 mg tablet,rebecca yed release TAKE 1 TABLET BY MOUTH EVERY DAY active Not Available Not Available No t Available dextroamphe tamine-amph etamine 20 mg tablet TAKE 1 TABLET BY MOUTH TWICE DAILY FOR 28 DAYSDN F 07/07/22* active Not Available Not Available No t Available lisinopril 10 mg tablet TAKE 1 TABLET BY MOUTH EVERY DAY active Not Available Not Available No t Available divalproex ER 500 mg tablet,exte nded release 24 hr TAKE 2 TABLETS BY MOUTH EVERY DAY 09/14 completed Not Available Not Available Not Available nicotine 21 mg/24 hr daily transdermal patch APPLY 1 PATCH TOPICALLY EVERY DAY active Not Available Not Available No t Available oxcarbazepi ne 600 mg tablet TAKE 1 TABLET BY MOUTH TWICE DAILY 2023 active Not Available Not Available Not Avai lable folic acid 1 mg tablet TAKE 1 TABLET BY MOUTH EVERY DAY active Not Available Not Available No t Available levetiracet am 750 mg tablet TAKE 1 TABLET BY MOUTH TWICE DAILY active Not Available Not Available No t Available lisinopril 5 mg tablet TK 1 T PO D active Not Available Not Available No t Available furosemide 20 mg tablet TAKE 1 TABLET BY MOUTH EVERY DAY active Not Available Not Available No t Available fluoxetine 20 mg capsule TAKE 3 CAPSULES BY MOUTH EVERY DAY active Not Available Not Available No t Available doxycycline hyclate 100 mg tablet TAKE 1 TABLET BY MOUTH TWICE DAILY FOR 5 DAYS active Not Available Not Available No t Available lamotrigine 100 mg tablet TAKE 0.5 TABLET BY MOUTH TWICE DAILY 11/29 completed Not Available Not Available Not Available oxycodone 5 mg tablet TAKE 1 TABLET BY MOUTH EVERY 4 HOURS NEEDED active Not Available Not Available No t Available methylpheni date ER 27 mg tablet,exte nded release 24 hr TAKE 1 TABLET BY MOUTH EVERY DAY active Not Available Not Available No t Available One Daily Multivitami n tablet TAKE 1 TABLET BY MOUTH EVERY DAY active Not Available Not Available No t Available Humalog U-100 Insulin 100 unit/mL subcutaneou s cartridge PLEASE SEE ATTACHED FOR DETAILED DIRECTION S active Not Available Not Available No t Available divalproex ER 250 mg tablet,exte nded release 24 hr TAKE 3 TABLET BY MOUTH DAILY IN THE EVENING 06/13 completed Not Available Not Available Not Available acamprosate 333 mg tablet,rebecca yed release TAKE 2 TABLETS BY MOUTH 3 TIMES A DAY. active Not Available Not Available No t Available FreeStyle Lite Strips USE TO CHECK BLOOD SUGAR 4 TO 5 TIMES PER DAY active Not Available Not Available No t Available Lantus Solostar U-100 Insulin 100 unit/mL (3 mL) subcutaneou s pen PLEASE SEE ATTACHED FOR DETAILED DIRECTION S active Not Available Not Available No t Available lacosamide 200 mg tablet TAKE 1 TABLET BY MOUTH TWICE A DAY active Not Available Not Available No t Available Vimpat 50 mg tablet TAKE 1 TABLET BY MOUTH TWICE DAILY active Not Available Not Available No t Available alpha lipoic acid 600 mg capsule TAKE 1 CAPSULE BY MOUTH DAILY active Not Available Not Available No t Available lidocaine 5 % topical ointment APPLY TOPICALLY TO THE AFFECTED AREA 1 TO 4 TIMES DAILY NEEDED active Not Available Not Available No t Available BD Insulin Syringe Ultra-Fine 0.5 mL 31 gauge x 5/16 USE TO INJECT INSULIN 4 TO 5 TIMES A DAY active Not Available Not Available No t Available BD SafetyGlide Insulin Syringe 0.5 mL 31 gauge x 15/64 USE TO INJECT INSULIN 4 TO 5 TIMES A DAY active Not Available Not Available No t Available BD Veo Insulin Syringe Ultra-Fine 1/2 mL 31 gauge x 15/64 USE TO INJECT INSULIN FIVE TIMES DAILY active Not Available Not Available No t Available Dexcom G6 Sensor device CHECK SUGARS DAILY CHANGE SENSOR EVERY 10DAYS (IF SENSOR FALLS OFF EARLY CONTACT DEXCOM OR PHARMACY) active Not Available Not Available No t Available Dexcom G6 Outside Repairer Special CHECK SUGAR MANY TIMES DAILY active Not Available Not Available No t Available Dexcom G6 Transmitter device CHECK SUGAR MANY TIMES DAILY active Not Available Not Available No t Available BD Diane 2nd Gen Pen Needle 32 gauge x 5/32 USE DIRECTED TO CHECK BLOOD SUGAR FOUR TIMES DAILY active Not Available Not Available No t Available BinaxNOW COVID-19 Ag Self Test kit TEST DIRECTED TODAY active Not Available Not Available No t Available InPen (for Humalog) Guy subcutaneou s USE DIRECTED 3 TIMES A DAY active Not Available Not Available No t Available Vitals None Recorded Social History None recorded. Functional Status None recorded. Mental Status None recorded. Family History Nothing Reported. Medical History No medical history recorded. 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 [id number] Henok Estevez MD [facility] [address] [place] [address] [place] [id number] 12/08/2020 09:07:47 12/08/2020 10:34:28 Generalized convulsive epilepsy [id number] G40.309 [id number] Henok Estevez MD [facility] [address] [place] [address] [place] [id number] 04/27/2021 14:21:25 04/27/2021 15:05:05 Generalized convulsive epilepsy [id number] G40.309 [id number] Henok Estevez MD [facility] [address] [place] [address] [place] [id number] 08/15/2021 09:03:59 08/15/2021 10:15:02 Generalized convulsive epilepsy [id number] G40.309 [id number] Henok Estevez MD [facility] [address] [place] [address] [place] [id number] 01/24/2023 15:54:13 01/25/2023 09:34:09 Generalized convulsive epilepsy [id number] G40.309 Seizure disorder [id number] 02 G40.909 [id number] Henok Estevez MD [facility] [address] [place] [address] [place] [id number] 03/26/2023 14:02:34 03/26/2023 15:36:28 Generalized convulsive epilepsy [id number] G40.309 Seizure disorder [id number] 02 G40.909 [id number] Henok Estevez MD [facility] [address] [place] [address] [place] [address] 06/26/2023 14:20:29 06/26/2023 17:37:17 Generalized convulsive epilepsy [id number] G40.309 Seizure disorder [id number] 02 G40.909 [id number] Henok Estevez MD [facility] [address] [place] [address] [place] [address] 10/30/2023 14:03:43 10/31/2023 08:02:48 Generalized convulsive epilepsy 98259463 G40.309 Seizure disorder 1770676 02 G40.909 Health Concerns Section Related Observation LastModified by Organization Detai ls LastModified Time None Recorded Concern Status LastModified by Organization Details LastModified Time None Recorded Advance Directives Directive None Recorded Payers Encounter Date Sequence Insurance Name Policy Number Policy [employer] Covered Member ID [place] Member ID Guarantor Name 08/15/2021 1 MEDICAID-[place]: [facility] Henok Christine [id number] Henok Christine 01/24/2023 1 [facility] Henok Christine [id number] Henok Christine 03/26/2023 1 [facility] Henok Christine [id number] Henok Christine 06/26/2023 1 [facility] Henok Christine [id number] Henok Christine 10/30/2023 1 [facility] Henok Christine [id number] Henok Christine Notes Date Note Type Note Provider Name and Address Organization Details Recorded Time 02/07/202 2 text/html Follow up of episodic seizures without warning. Past history includes alcoholism with intermittent cessation over the years. Past history also includes type 1 diabetes, ADHD on Adderall; and mood disorder on Prozac. He is unaccompanied. Not present: his mother, Rimma. He has had just one seizure. This occurred 2 days ago. He had not missed any medications. I had asked him to stop lamotrigine 50 mg twice a day. He at first thought he was still taking lamotrigine. He then reviewed the medications in his collection and realized that he is no longer taking the lamotrigine. He continues taking Depakote ER 1000 mg every evening and oxcarbazepine 600 mg twice a day. He mentions that his ic engineer is concerned that oxcarbazepine might be contributing to lower sodium. He does not know what his sodium has been recently. I look on [employer] portal over the past year and find just one reading, from yesterday, August 14, 2021 with sodium = 134, normal. I reassured the patient of this. We discussed that although oxcarbazepine can lower sodium, generally less than 10% of patients have a worrisome sodium deficiency on oxcarbazepine. There can be additive effects from multiple medications that all have the potential of lowering sodium. He is not one of the individuals who currently has this problem. He is reassured. He has been taking his medications without any mistakes, Depakote ER 1000 mg every evening, oxcarbazepine 600 mg twice a day, lamotrigine 50 mg twice a day. He is still tired much of the time and feels this is in large part related to at least the first 2 medications. He uses an alarm on his cell phone and on another computer device in his living space. His mood continues horrible. He generally cannot sleep. He snaps and everything is an issue. He remains on fluoxetine without change from primary care. He reports that he has asked them to change it but they have not. He cannot say why. They have been trying to get him with psychiatric healthcare provider. He now has an appointment coming up. Aside from the insulin administration adjustment there have been no changes in medications. There are no new diagnoses. He has said that he has an appointment with [facility] epilepsy division of neurology. We did not discuss about that today. Presenting symptomatology is reviewed from initial neurology consultation January 17, 2019: He has no warning for his seizures. He only knows about them when told about them afterwards. His mother has witnessed a subset of his seizures with generalized shaking. Afterwards, he is very difficult to arouse. They both estimate that they began sometime around the beginning of 2017. They are now occurring every one to 2 months, his mother estimates. Some have occurred in the context of drinking. He reports that after September 2018 episode he stopped drinking. Subsequent episodes December 18, 2018 and January 15 2019 occurred without any association with alcohol. His mother has suspected that he has been drinking since September 2018. He was out behind the shed before the most recent episode. However he says he was just relaxing out there. (Ethanol level at emergency room was <10, January 16, 2019.) He takes his own medications. He tries as hard as he can to make sure that he is consistent and accurate with Prozac, Adderall and insulin. His mother notes that he has times when he just lies in bed and sleeps for 2 days or so. During these times, she cannot get him to arise and get out of bed. He seems to miss his medications during these times. His seizures seem to occur shortly after these times of staying in bed for 2 days or so. He was started on Keppra after December 18, 2018 seizure. He developed a rash. He got real mean according to his mother. Medication was discontinued and these side effects resolved. His mother reports that he had a normal and early development. He finished high school. 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 Henok Estevez MD [address] [place] [address], [phone], [facility] 08/15/2021 09:37:01 3 text/html Follow up of episodic seizures without warning. Past history includes alcoholism with intermittent cessation over the years. Past history also includes type 1 diabetes, ADHD on Adderall; and mood disorder on Prozac. He is unaccompanied. Not present: his mother, Rimma. Since August 15, 2021 neurology follow-up encounter, 1 year and 5 months ago, received two messages:September 14, 2021: Still missed his telemed appointment today. His mother called to let you know that he was hospitalized due to a seizure. She said that he can reschedule once discharged. A tickler has been created in case we do not hear from him.Nov 09 2022, 14 months later: Was in the emergency room for seizure reportedly induced by alcohol. I asked for follow-up to be with comp field case manager if he has one. Emergency room discharge from November 09, 2022 6:17 AM, instructions to patient: Alcohol level is above the legal limit;November 09, 2022: Glucose 170, ethanol 131 hepatic panel with mild elevation of AST and ALT 48 and 42 respectively and low albumin 3.8; magnesium 1.6 lower level of normal, UA shows 2+ glucose otherwise unremarkable, BMP with sodium 132 mildly low and glucose high 172, CBC with low MCV 73.7? ? ?Pharmacy download reveals last Depakote ER prescription fill was September 14, 2021, over a year ago; has not been prescription remains active 600 mg tablet one twice a day; my last prescription for oxcarbazepine was August 31, 2021, however. Subset of the subsequent fills reflect PCP Emma Cordova as the prescriberHe apparently remains on Vimpat. My last prescription was August 15, 2021, at his last follow-up, 50 mg tablets, 1 tablet twice a day. Is apparently on 200 mg tablets, with at least a subset of his skills reflecting PCP Emma Cordova as the prescriber. We discussed this. He remembers the emergency room visit November 09, 2022. He was drinking alcohol? a nd he is still drinking. He went to the emergency room because of symptoms that were diagnosed as very high blood sugar. He is not certain if he also had a seizure. Otherwise, he does not think he has had any seizures in recent times. He remains on oxcarbazepine 600 mg twice a day. His PCP took over all his medications including oxcarbazepine, Depakote and lacosamide but stopped the Depakote. He cannot say why. He no longer has the tremor and tiredness that he had on both Depakote and oxcarbazepine combined. He believes that it was his primary care provider that increase the lacosamide from 50 mg twice a day up to 200 mg twice a day. In any case she has been prescribing his lacosamide in recent times which is 200 mg twice a day. He cannot say if he has side effects. Sometimes he feels a little tippy with his balance. Otherwise there are no symptoms that he can think of to suggest side effects.He is here because his primary care provider Tammie Cordova retired and his new primary care provider, Dolores Zayas, wishes neurology to again take over management of antiseizure medications. >>>>>>>>>>>>>>>>August 15, 2021He has had just one seizure. This occurred 2 days ago. He had not missed any medications. I had asked him to stop lamotrigine 50 mg twice a day. He at first thought he was still taking lamotrigine. He then reviewed the medications in his collection and realized that he is no longer taking the lamotrigine. He continues taking Depakote ER 1000 mg every evening and oxcarbazepine 600 mg twice a day. He mentions that his ic engineer is concerned that oxcarbazepine might be contributing to lower sodium. He does not know what his sodium has been recently. I look on [employer] portal over the past year and find just one reading, from yesterday, August 14, 2021 with sodium = 134, normal. I reassured the patient of this. We discussed that although oxcarbazepine can lower sodium, generally less than 10% of patients have a worrisome sodium deficiency on oxcarbazepine. There can be additive effects from multiple medications that all have the potential of lowering sodium. He is not one of the individuals who currently has this problem. He is reassured. He has been taking his medications without any mistakes, Depakote ER 1000 mg every evening, oxcarbazepine 600 mg twice a day, lamotrigine 50 mg twice a day. He is still tired much of the time and feels this is in large part related to at least the first 2 medications. He uses an alarm on his cell phone and on another computer device in his living space. His mood continues horrible. He generally cannot sleep. He snaps and everything is an issue. He remains on fluoxetine without change from primary care. He reports that he has asked them to change it but they have not. He cannot say why. They have been trying to get him with psychiatric healthcare provider. He now has an appointment coming up. Aside from the insulin administration adjustment there have been no changes in medications. There are no new diagnoses. He has said that he has an appointment with [facility] epilepsy division of neurology. We did not discuss about that today. Presenting symptomatology is reviewed from initial neurology consultation January 17, 2019: He has no warning for his seizures. He only knows about them when told about them afterwards. His mother has witnessed a subset of his seizures with generalized shaking. Afterwards, he is very difficult to arouse. They both estimate that they began sometime around the beginning of 2017. They are now occurring every one to 2 months, his mother estimates. Some have occurred in the context of drinking. He reports that after September 2018 episode he stopped drinking. Subsequent episodes December 18, 2018 and January 15 2019 occurred without any association with alcohol. His mother has suspected that he has been drinking since September 2018. He was out behind the shed before the most recent episode. However he says he was just relaxing out there. (Ethanol level at emergency room was <10, January 16, 2019.) He takes his own medications. He tries as hard as he can to make sure that he is consistent and accurate with Prozac, Adderall and insulin. His mother notes that he has times when he just lies in bed and sleeps for 2 days or so. During these times, she cannot get him to arise and get out of bed. He seems to miss his medications during these times. His seizures seem to occur shortly after these times of staying in bed for 2 days or so. He was started on Keppra after December 18, 2018 seizure. He developed a rash. He got real mean according to his mother. Medication was discontinued and these side effects resolved. His mother reports that he had a normal and early development. He finished high school. 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 Henok Estevez MD [address] [place] [address] [place], [phone], [facility] 01/24/2023 17:11:04 3 text/html Follow up of episodic seizures without warning. Past history includes alcoholism with intermittent cessation over the years. Past history also includes type 1 diabetes, ADHD on Adderall; and mood disorder on Prozac. He is unaccompanied. He is accompanied for the first time by his father, Henok Christine.Not present: his mother, Rimma. >>>>>>>>>>>>>>>>Henok Christine March 26, 2023Since January 24, 2023 neurology follow-up encounter, he has had a single seizure, March 14, 2023. His father was in the next room and heard seizure-like activity and came to see the patient lying half off the bed, stiff, frothing from the mouth. He recovered enough to verbalize by time emergency workers were taking him to the hospital although he was not back to baseline mentation. He was discharged from the hospital and both patient and father only remember diagnosis of seizure. They did not change any medications.He is now living with his father (and mother) and his father asks every day if he is taking his medication but does not watch medication administration. The patient says he is unsure if he missed a medication but he has been pretty steady with taking it.He has not yet stopped drinking.His blood sugar was 156 during the seizure, per his father.He started working with a psychiatric healthcare provider after January 24, 2023 but is no longer working with that person. He cannot say why.Psychiatry did not start or change any medicines. He has not had any medication changes more generally. >>>>>>>>>>>>>>>>August 15ince August 15, 2021 neurology follow-up encounter, 1 year and 5 months ago, received two messages:September 14, 2021: Mr. Christine missed his telemed appointment today. His mother called to let you know that he was hospitalized due to a seizure. She said that he can reschedule once discharged. A tickler has been created in case we do not hear from him.Nov 09 2022, 14 months later: Was in the emergency room for seizure reportedly induced by alcohol. I asked for follow-up to be with comp field case manager if he has one. Emergency room discharge from November 09, 2022 6:17 AM, instructions to patient: Alcohol level is above the legal limit;November 09, 2022: Glucose 170, ethanol 131 hepatic panel with mild elevation of AST and ALT 48 and 42 respectively and low albumin 3.8; magnesium 1.6 lower level of normal, UA shows 2+ glucose otherwise unremarkable, BMP with sodium 132 mildly low and glucose high 172, CBC with low MCV 73.7? ? ?Pharmacy download reveals last Depakote ER prescription fill was September 14, 2021, over a year ago; has not been prescription remains active 600 mg tablet one twice a day; my last prescription for oxcarbazepine was August 31, 2021, however. Subset of the subsequent fills reflect PCP Emma Cordova as the prescriberHe apparently remains on Vimpat. My last prescription was August 15, 2021, at his last follow-up, 50 mg tablets, 1 tablet twice a day. Is apparently on 200 mg tablets, with at least a subset of his skills reflecting PCP Emma Cordova as the prescriber. We discussed this. He remembers the emergency room visit November 09, 2022. He was drinking alcohol? a nd he is still drinking. He went to the emergency room because of symptoms that were diagnosed as very high blood sugar. He is not certain if he also had a seizure. Otherwise, he does not think he has had any seizures in recent times. He remains on oxcarbazepine 600 mg twice a day. His PCP took over all his medications including oxcarbazepine, Depakote and lacosamide but stopped the Depakote. He cannot say why. He no longer has the tremor and tiredness that he had on both Depakote and oxcarbazepine combined. He believes that it was his primary care provider that increase the lacosamide from 50 mg twice a day up to 200 mg twice a day. In any case she has been prescribing his lacosamide in recent times which is 200 mg twice a day. He cannot say if he has side effects. Sometimes he feels a little tippy with his balance. Otherwise there are no symptoms that he can think of to suggest side effects.He is here because his primary care provider Tammie Cordova retired and his new primary care provider, Dolores Zayas, wishes neurology to again take over management of antiseizure medications. >>>>>>>>>>>>>>>>August 15, 2021He has had just one seizure. This occurred 2 days ago. He had not missed any medications. I had asked him to stop lamotrigine 50 mg twice a day. He at first thought he was still taking lamotrigine. He then reviewed the medications in his collection and realized that he is no longer taking the lamotrigine. He continues taking Depakote ER 1000 mg every evening and oxcarbazepine 600 mg twice a day. He mentions that his ic engineer is concerned that oxcarbazepine might be contributing to lower sodium. He does not know what his sodium has been recently. I look on [facility] portal over the past year and find just one reading, from yesterday, August 14, 2021 with sodium = 134, normal. I reassured the patient of this. We discussed that although oxcarbazepine can lower sodium, generally less than 10% of patients have a worrisome sodium deficiency on oxcarbazepine. There can be additive effects from multiple medications that all have the potential of lowering sodium. He is not one of the individuals who currently has this problem. He is reassured. He has been taking his medications without any mistakes, Depakote ER 1000 mg every evening, oxcarbazepine 600 mg twice a day, lamotrigine 50 mg twice a day. He is still tired much of the time and feels this is in large part related to at least the first 2 medications. He uses an alarm on his cell phone and on another computer device in his living space. His mood continues horrible. He generally cannot sleep. He snaps and everything is an issue. He remains on fluoxetine without change from primary care. He reports that he has asked them to change it but they have not. He cannot say why. They have been trying to get him with psychiatric healthcare provider. He now has an appointment coming up. Aside from the insulin administration adjustment there have been no changes in medications. There are no new diagnoses. He has said that he has an appointment with [facility] epilepsy division of neurology. We did not discuss about that today. Presenting symptomatology is reviewed from initial neurology consultation January 17, 2019: He has no warning for his seizures. He only knows about them when told about them afterwards. His mother has witnessed a subset of his seizures with generalized shaking. Afterwards, he is very difficult to arouse. They both estimate that they began sometime around the beginning of 2017. They are now occurring every one to 2 months, his mother estimates. Some have occurred in the context of drinking. He reports that after September 2018 episode he stopped drinking. Subsequent episodes December 18, 2018 and January 15 2019 occurred without any association with alcohol. His mother has suspected that he has been drinking since September 2018. He was out behind the shed before the most recent episode. However he says he was just relaxing out there. (Ethanol level at emergency room was <10, January 16, 2019.) He takes his own medications. He tries as hard as he can to make sure that he is consistent and accurate with Prozac, Adderall and insulin. His mother notes that he has times when he just lies in bed and sleeps for 2 days or so. During these times, she cannot get him to arise and get out of bed. He seems to miss his medications during these times. His seizures seem to occur shortly after these times of staying in bed for 2 days or so. He was started on Keppra after December 18, 2018 seizure. He developed a rash. He got real mean according to his mother. Medication was discontinued and these side effects resolved. His mother reports that he had a normal and early development. He finished high school. 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 Henok Estevez MD [address] [place] [address], [id number], [facility] 03/26/2023 14:40:35 3 text/html Follow up of episodic seizures without warning. Past history includes alcoholism with intermittent cessation over the years. Past history also includes type 1 diabetes, ADHD on Adderall; and mood disorder on Prozac. He is unaccompanied. He is accompanied for the first time by his father, Henok Christine.Not present: his mother, Rimma.>>>>>>>>>>>>>>>>De Guzman 2022Since already March 26, 2023 neurology follow-up encounter, he has had another hospital admission recently. There was no seizure. His blood sugar was too high.He does not think he is making mistakes with his medication. His father continues to set up his medication organizer every week. However, the patient himself continues to take the medication independently. I ask if there was any conflict between him and his father so that his father has not started watching him take his medication that he should ministration. He states that there was not. His mother says that when he gets angry, there is such a conflict.He is still drinking. His mother says that he gets angry especially when he is drinking.He has not moved toward calling his new PCP to arrange a consultation with psychiatry. His mother was surprised that he was not seeing psychiatry. She mentioned that he was doing so good for 2 years. I asked both of them if anything has happened so that he stopped doing so good. Neither know of anything in particular. >>>>>>>>>>>>>>>>Henok Danielle Still March 26, 2023Since January 24, 2023 neurology follow-up encounter, he has had a single seizure, March 14, 2023. His father was in the next room and heard seizure-like activity and came to see the patient lying half off the bed, stiff, frothing from the mouth. He recovered enough to verbalize by time emergency workers were taking him to the hospital although he was not back to baseline mentation. He was discharged from the hospital and both patient and father only remember diagnosis of seizure. They did not change any medications.He is now living with his father (and mother) and his father asks every day if he is taking his medication but does not watch medication administration. The patient says he is unsure if he missed a medication but he has been pretty steady with taking it.He has not yet stopped drinking.His blood sugar was 156 during the seizure, per his father.He started working with a psychiatric healthcare provider after January 24, 2023 but is no longer working with that person. He cannot say why.Psychiatry did not start or change any medicines. He has not had any medication changes more generally. >>>>>>>>>>>>>>>>August 15ince August 15, 2021 neurology follow-up encounter, 1 year and 5 months ago, received two messages:September 14, 2021: Still missed his telemed appointment today. His mother called to let you know that he was hospitalized due to a seizure. She said that he can reschedule once discharged. A tickler has been created in case we do not hear from him.Nov 09 2022, 14 months later: Was in the emergency room for seizure reportedly induced by alcohol. I asked for follow-up to be with comp field case manager if he has one. Emergency room discharge from November 09, 2022 6:17 AM, instructions to patient: Alcohol level is above the legal limit;November 09, 2022: Glucose 170, ethanol 131 hepatic panel with mild elevation of AST and ALT 48 and 42 respectively and low albumin 3.8; magnesium 1.6 lower level of normal, UA shows 2+ glucose otherwise unremarkable, BMP with sodium 132 mildly low and glucose high 172, CBC with low MCV 73.7? ? ?Pharmacy download reveals last Depakote ER prescription fill was September 14, 2021, over a year ago; has not been prescription remains active 600 mg tablet one twice a day; my last prescription for oxcarbazepine was August 31, 2021, however. Subset of the subsequent fills reflect PCP Emma Cordova as the prescriberHe apparently remains on Vimpat. My last prescription was August 15, 2021, at his last follow-up, 50 mg tablets, 1 tablet twice a day. Is apparently on 200 mg tablets, with at least a subset of his skills reflecting PCP Emma Cordova as the prescriber. We discussed this. He remembers the emergency room visit November 09, 2022. He was drinking alcohol? a nd he is still drinking. He went to the emergency room because of symptoms that were diagnosed as very high blood sugar. He is not certain if he also had a seizure. Otherwise, he does not think he has had any seizures in recent times. He remains on oxcarbazepine 600 mg twice a day. His PCP took over all his medications including oxcarbazepine, Depakote and lacosamide but stopped the Depakote. He cannot say why. He no longer has the tremor and tiredness that he had on both Depakote and oxcarbazepine combined. He believes that it was his primary care provider that increase the lacosamide from 50 mg twice a day up to 200 mg twice a day. In any case she has been prescribing his lacosamide in recent times which is 200 mg twice a day. He cannot say if he has side effects. Sometimes he feels a little tippy with his balance. Otherwise there are no symptoms that he can think of to suggest side effects.He is here because his primary care provider Tammie Cordova retired and his new primary care provider, Dolores Zayas, wishes neurology to again take over management of antiseizure medications. >>>>>>>>>>>>>>>>August 15, 2021He has had just one seizure. This occurred 2 days ago. He had not missed any medications. I had asked him to stop lamotrigine 50 mg twice a day. He at first thought he was still taking lamotrigine. He then reviewed the medications in his collection and realized that he is no longer taking the lamotrigine. He continues taking Depakote ER 1000 mg every evening and oxcarbazepine 600 mg twice a day. He mentions that his ic engineer is concerned that oxcarbazepine might be contributing to lower sodium. He does not know what his sodium has been recently. I look on [employer] portal over the past year and find just one reading, from yesterday, August 14, 2021 with sodium = 134, normal. I reassured the patient of this. We discussed that although oxcarbazepine can lower sodium, generally less than 10% of patients have a worrisome sodium deficiency on oxcarbazepine. There can be additive effects from multiple medications that all have the potential of lowering sodium. He is not one of the individuals who currently has this problem. He is reassured. He has been taking his medications without any mistakes, Depakote ER 1000 mg every evening, oxcarbazepine 600 mg twice a day, lamotrigine 50 mg twice a day. He is still tired much of the time and feels this is in large part related to at least the first 2 medications. He uses an alarm on his cell phone and on another computer device in his living space. His mood continues horrible. He generally cannot sleep. He snaps and everything is an issue. He remains on fluoxetine without change from primary care. He reports that he has asked them to change it but they have not. He cannot say why. They have been trying to get him with psychiatric healthcare provider. He now has an appointment coming up. Aside from the insulin administration adjustment there have been no changes in medications. There are no new diagnoses. He has said that he has an appointment with [facility] epilepsy division of neurology. We did not discuss about that today. Presenting symptomatology is reviewed from initial neurology consultation January 17, 2019: He has no warning for his seizures. He only knows about them when told about them afterwards. His mother has witnessed a subset of his seizures with generalized shaking. Afterwards, he is very difficult to arouse. They both estimate that they began sometime around the beginning of 2017. They are now occurring every one to 2 months, his mother estimates. Some have occurred in the context of drinking. He reports that after September 2018 episode he stopped drinking. Subsequent episodes December 18, 2018 and January 15 2019 occurred without any association with alcohol. His mother has suspected that he has been drinking since September 2018. He was out behind the shed before the most recent episode. However he says he was just relaxing out there. (Ethanol level at emergency room was <10, January 16, 2019.) He takes his own medications. He tries as hard as he can to make sure that he is consistent and accurate with Prozac, Adderall and insulin. His mother notes that he has times when he just lies in bed and sleeps for 2 days or so. During these times, she cannot get him to arise and get out of bed. He seems to miss his medications during these times. His seizures seem to occur shortly after these times of staying in bed for 2 days or so. He was started on Keppra after December 18, 2018 seizure. He developed a rash. He got real mean according to his mother. Medication was discontinued and these side effects resolved. His mother reports that he had a normal and early development. He finished high school. 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 Henok Estevez MD [address] [place] [address], [phone], [facility] 06/26/2023 15:29:33 4 text/html Follow up of episodic seizures without warning. Past history includes alcoholism with intermittent cessation over the years. Past history also includes type 1 diabetes, ADHD; mood disorder; alcohol disorder. --He is unaccompanied. --Not present: H his father, Henok Christine, present for 1st and only time 07/27/22; Not present: his mother, Rimma. >>>>>>>>>>>>>>>>October 30, 2023Since June 26, 2023 neurology follow-up encounter, she has had two seizures, on separate days, he cannot say when either episode occurred. He went to [facility] urgency room both times. They told him they did not want why his seizures to happen. There was no problem with his sugar. He has not had separate hospital admissions for dysglycemia.His father continues to fill his medication organizer weekly. Otherwise, the patient continues to take his medication independently? n o one watches.We went over his medications relating to seizure (at least partially). He has medication bottles in front of him. He missed stated the lamotrigine dose as 1 tablet three times a day. When I question this, saying that the pharmacy download says 3 tablets twice a day, he says all yes, I just read it wrong.He remembers that Dolores Zayas is his primary care provider and that she manages the lamotrigine. He again is uncertain the purpose of the lamotrigine. I did not ask again how he was doing and finding a psychiatrist.He says his mood is good. I did not ask again whether he is still drinking. Pharmacy download:Lacosamide 200 mg twice daily, last filled September 02, 2023, a 60-day supply, prescribed by myselfOxcarbazepine 600 mg tablet, 1 tablet twice a day, last filled October 17, 2023, 30-day supply, prescribed by myself.Lamotrigine 25 mg tablets, 3 tablets twice a day, last filled October 16, 2023, 30 days supply, prescribed by Dolores Zayas >>>>>>>>>>>>>>>>June 26, 2023Since already March 26, 2023 neurology follow-up encounter, he has had another hospital admission recently. There was no seizure. His blood sugar was too high.He does not think he is making mistakes with his medication. His father continues to set up his medication organizer every week. However, the patient himself continues to take the medication independently. I ask if there was any conflict between him and his father so that his father has not started watching him take his medication that he should ministration. He states that there was not. His mother says that when he gets angry, there is such a conflict.He is still drinking. His mother says that he gets angry especially when he is drinking.He has not moved toward calling his new PCP to arrange a consultation with psychiatry. His mother was surprised that he was not seeing psychiatry. She mentioned that he was doing so good for 2 years. I asked both of them if anything has happened so that he stopped doing so good. Neither know of anything in particular. >>>>>>>>>>>>>>>>Henok Danielle Still March 26, 2023Since January 24, 2023 neurology follow-up encounter, he has had a single seizure, March 14, 2023. His father was in the next room and heard seizure-like activity and came to see the patient lying half off the bed, stiff, frothing from the mouth. He recovered enough to verbalize by time emergency workers were taking him to the hospital although he was not back to baseline mentation. He was discharged from the hospital and both patient and father only remember diagnosis of seizure. They did not change any medications.He is now living with his father (and mother) and his father asks every day if he is taking his medication but does not watch medication administration. The patient says he is unsure if he missed a medication but he has been pretty steady with taking it.He has not yet stopped drinking.His blood sugar was 156 during the seizure, per his father.He started working with a psychiatric healthcare provider after January 24, 2023 but is no longer working with that person. He cannot say why.Psychiatry did not start or change any medicines. He has not had any medication changes more generally. >>>>>>>>>>>>>>>>August 15ince August 15, 2021 neurology follow-up encounter, 1 year and 5 months ago, received two messages:September 14, 2021: Still missed his telemed appointment today. His mother called to let you know that he was hospitalized due to a seizure. She said that he can reschedule once discharged. A tickler has been created in case we do not hear from him.Nov 09 2022, 14 months later: Was in the emergency room for seizure reportedly induced by alcohol. I asked for follow-up to be with comp field case manager if he has one. Emergency room discharge from November 09, 2022 6:17 AM, instructions to patient: Alcohol level is above the legal limit;November 09, 2022: Glucose 170, ethanol 131 hepatic panel with mild elevation of AST and ALT 48 and 42 respectively and low albumin 3.8; magnesium 1.6 lower level of normal, UA shows 2+ glucose otherwise unremarkable, BMP with sodium 132 mildly low and glucose high 172, CBC with low MCV 73.7? ? ?Pharmacy download reveals last Depakote ER prescription fill was September 14, 2021, over a year ago; has not been prescription remains active 600 mg tablet one twice a day; my last prescription for oxcarbazepine was August 31, 2021, however. Subset of the subsequent fills reflect PCP Emma Cordova as the prescriberHe apparently remains on Vimpat. My last prescription was August 15, 2021, at his last follow-up, 50 mg tablets, 1 tablet twice a day. Is apparently on 200 mg tablets, with at least a subset of his skills reflecting PCP Emma Cordova as the prescriber. We discussed this. He remembers the emergency room visit November 09, 2022. He was drinking alcohol? a nd he is still drinking. He went to the emergency room because of symptoms that were diagnosed as very high blood sugar. He is not certain if he also had a seizure. Otherwise, he does not think he has had any seizures in recent times. He remains on oxcarbazepine 600 mg twice a day. His PCP took over all his medications including oxcarbazepine, Depakote and lacosamide but stopped the Depakote. He cannot say why. He no longer has the tremor and tiredness that he had on both Depakote and oxcarbazepine combined. He believes that it was his primary care provider that increase the lacosamide from 50 mg twice a day up to 200 mg twice a day. In any case she has been prescribing his lacosamide in recent times which is 200 mg twice a day. He cannot say if he has side effects. Sometimes he feels a little tippy with his balance. Otherwise there are no symptoms that he can think of to suggest side effects.He is here because his primary care provider Tammie Cordova retired and his new primary care provider, Dolores Zayas, wishes neurology to again take over management of antiseizure medications. >>>>>>>>>>>>>>>>August 15, 2021He has had just one seizure. This occurred 2 days ago. He had not missed any medications. I had asked him to stop lamotrigine 50 mg twice a day. He at first thought he was still taking lamotrigine. He then reviewed the medications in his collection and realized that he is no longer taking the lamotrigine. He continues taking Depakote ER 1000 mg every evening and oxcarbazepine 600 mg twice a day. He mentions that his ic engineer is concerned that oxcarbazepine might be contributing to lower sodium. He does not know what his sodium has been recently. I look on [employer] portal over the past year and find just one reading, from yesterday, August 14, 2021 with sodium = 134, normal. I reassured the patient of this. We discussed that although oxcarbazepine can lower sodium, generally less than 10% of patients have a worrisome sodium deficiency on oxcarbazepine. There can be additive effects from multiple medications that all have the potential of lowering sodium. He is not one of the individuals who currently has this problem. He is reassured. He has been taking his medications without any mistakes, Depakote ER 1000 mg every evening, oxcarbazepine 600 mg twice a day, lamotrigine 50 mg twice a day. He is still tired much of the time and feels this is in large part related to at least the first 2 medications. He uses an alarm on his cell phone and on another computer device in his living space. His mood continues horrible. He generally cannot sleep. He snaps and everything is an issue. He remains on fluoxetine without change from primary care. He reports that he has asked them to change it but they have not. He cannot say why. They have been trying to get him with psychiatric healthcare provider. He now has an appointment coming up. Aside from the insulin administration adjustment there have been no changes in medications. There are no new diagnoses. He has said that he has an appointment with [facility] epilepsy division of neurology. We did not discuss about that today. Presenting symptomatology is reviewed from initial neurology consultation January 17, 2019: He has no warning for his seizures. He only knows about them when told about them afterwards. His mother has witnessed a subset of his seizures with generalized shaking. Afterwards, he is very difficult to arouse. They both estimate that they began sometime around the beginning of 2017. They are now occurring every one to 2 months, his mother estimates. Some have occurred in the context of drinking. He reports that after September 2018 episode he stopped drinking. Subsequent episodes December 18, 2018 and January 15 2019 occurred without any association with alcohol. His mother has suspected that he has been drinking since September 2018. He was out behind the shed before the most recent episode. However he says he was just relaxing out there. (Ethanol level at emergency room was <10, January 16, 2019.) He takes his own medications. He tries as hard as he can to make sure that he is consistent and accurate with Prozac, Adderall and insulin. His mother notes that he has times when he just lies in bed and sleeps for 2 days or so. During these times, she cannot get him to arise and get out of bed. He seems to miss his medications during these times. His seizures seem to occur shortly after these times of staying in bed for 2 days or so. He was started on Keppra after December 18, 2018 seizure. He developed a rash. He got real mean according to his mother. Medication was discontinued and these side effects resolved. His mother reports that he had a normal and early development. He finished high school. 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 Henok Estevez MD [address] [place] [address] [place], [phone], [facility] 10/30/2023 14:40:26
--- OUTSIDE RECORDS SUMMARY | 2024-11-13 15:00 | XMS_ITS | Clinical Summary ---
Author Organization [facility] Address [address] [place] [id number] Care Team Providers Care Slurry Tank Tender Name Role Phone Unavailable Primary Care Provider Unavailabl e Social History Tobacco Use Types Packs/Day Years Used Date Smoking Tobacco: Never Assessed Sex and Gender Information Value Date Recorded Sex Assigned at Not on file Legal Sex Male 3:16 PM EST Gender Identity Not on file Sexual Orientation Not on file Plan of Treatment Health Maintenance Due Date Last Done Comments Hepatitis B Vaccine (1 of 3 - 19+ 3-dose series) 1998 Influenza Vaccine (Season Ended) 2025 Pneumococcal Vaccine: Peds ( 0 to 5 Years) and At-Risk Patients (6 to 49 Years) Aged Out No longer eligible b ased on patient's age to complete this topic Insurance Medicaid [place]
[2024-11-13 15:01] LABS: Amphetamine Screen Urine Not Detected (Not Detect); Barbiturates, Urine Not Detected (Not Detect); Benzodiazepines Screen Urine Not Detected (Not Detect); Buprenorphine Scr Not Detected (Not Detect); Cannabinoid Screen Urine Not Detected (Not Detect); Cocaine Screen Urine Not Detected (Not Detect); Fentanyl, urine Not Detected (Not Detect); Methadone Screen, Urine Not Detected (Not Detect); Opiate Screen Urine Not Detected (Not Detect); Oxycodone Screen Urine Not Detected (Not Detect); Phencyclidine Screen Urine Not Detected (Not Detect)
[2024-11-13] MEDS: PHENobarbitaL sodium 130 MG/ML IM ONCE 292 MG IM (15:18)
--- NOTE | 2024-11-13 15:19 | PM.IMHP ---
History of Present Illness Date of Service: 11/13/24 <Inna Simms DNP - Last Filed: 11/13/24 17:12> Attending physician on admission: Len Quintana <Inna Simms DNP - Last Filed: 11/13/24 17:12> Chief Complaint: Seizure, ETOH <Inna Simms DNP - Last Filed: 11/13/24 17:12> 44-year-old male with PMH significant for alcohol use disorder with history of EtOH withdrawal and Wernicke's syndrome , T2 DM with recurrent DKA, HTN, seizure disorder presented today with his brother for evaluation of possible seizure, patient admitted to drinking alcohol on a daily basis last drink was earlier this morning he drank vodka, as per brother reported this is his typical presentation of alcohol intoxication but today is little worse than usual. He had a similar presentation October 17, 2024 and was treated with phenobarbitol protocol and ETOH withdrawal resolved, he was also treated for Left great toe osteomyelitis and discharged on IV daptomycin 620 mgs for a total of 6 weeks ending 12/03/2024. Per patient last dose was at 2pm 11/12/2024. Today he presented to ED after he was found in on the floor by his brother with Mental status changes. Presented to ED in post ictal state, now more clear and able to provide history. He reports that he drank Vodka today. His head CT was WNL No leukocytosis, normocytic chronic anemia, Lactic acid 3.0, most likely related to post ictal state, patient is on IV ABT currently for known osteomyelitis. Ammonia level 60, 10 gram Lactulose ordered. Glucose on arrival 156 , Anion Gap 13. Electrolytes WNL. Urine negative, ETOH level 153, Tox screen negative. Patient reports that he has been taking his medications daily. <Inna Simms DNP - Last Filed: 11/13/24 17:12> Review of Systems Review of Systems: He denies any SOB, chest pain, abdominal pain, dizziness, headaches, visual changes. <Inna Simms DNP - Last Filed: 11/13/24 17:12> [facility], [facility] Medical History: Medical History Type 1 diabetes Wernicke encephalopathy Alcohol withdrawal seizure Type 1 diabetes Alcohol dependence Seizure disorder HTN (hypertension) <Inna Simms DNP - Last Filed: 11/13/24 17:12> Social History: Social History Household Members: Family Housing: Unknown / Unable to assess Alcohol intake: current Alcohol intake frequency: 3 or more drinks per day Patient Tobacco Use Status: Tobacco use Unknown Smoked in Last 30 Days: Yes Substance Use Type: Marijuana Advance Directives: No Advance Directives Information Provided: Yes service: No <Inna Simms DNP - Last Filed: 11/13/24 17:12> Meds Allergies/Adverse reactions: Allergies Allergy/AdvReac Type Severity Reaction Status Date / Time chlordiazepoxide Allergy Unknown Nausea Verified 11/13/24 12:56 [From Librium] Penicillins Allergy Unknown Unknown Verified 11/13/24 12:56 levetiracetam [From Keppra] AdvReac Severe agitation Verified 11/13/24 12:56 <Inna Simms DNP - Last Filed: 11/13/24 17:12> Active Medications: Current Medications Pharmacy Consult (Consult Rx Etoh Phenob Im/Po) 1 each MISCELLANE ONCE PRN; Protocol PRN Reason: Consult order Phenobarbital (Phenobarbital 15 Mg Tablet) 45 mg PO BID [facility]; Protocol Stop: 11/15/24 21:01 Phenobarbital (Phenobarbital 15 Mg Tablet) 15 mg PO BID [facility]; Protocol Stop: 11/17/24 21:01 Phenobarbital (Phenobarbital 15 Mg Tablet) 15 mg PO DAILY [facility]; Protocol Stop: 11/19/24 09:01 Phenobarbital Sodium (Phenobarbital Sodium 130 Mg/Ml Vial Im Q3hx2) 219 mg IM Q3H [facility]; Protocol Stop: 11/13/24 21:01 <Inna Simms DNP - Last Filed: 11/13/24 17:12> Home medications: Home Medications ?Medication ?Instructions ?Recorded ?Confirmed ?Last Taken ?Type amlodipine 10 mg tablet 10 mg PO DAILY 10/18/24 11/13/24 11/13/24 History famotidine 20 mg tablet 20 mg PO DAILY PRN Heartburn 10/18/24 11/13/24 Unknown History ferrous gluconate 324 mg (38 mg 324 mg PO DAILY 10/18/24 11/13/24 11/13/24 History iron) tablet insulin lispro 100 unit/mL See Protocol subcut TIDAC 10/18/24 11/13/24 11/13/24 History subcutaneous cartridge (Humalog U-100 Insulin) lacosamide 200 mg tablet 200 mg PO BID 10/18/24 11/13/24 11/13/24 History lamotrigine 25 mg tablet 75 mg PO BID 10/18/24 11/13/24 11/13/24 History losartan 25 mg tablet 25 mg PO DAILY 10/18/24 11/13/24 11/13/24 History oxcarbazepine 600 mg tablet 600 mg PO BID 10/18/24 11/13/24 11/13/24 History vitamin B complex-folic acid 0.4 1 tab PO DAILY 10/18/24 11/13/24 11/13/24 History mg tablet (B Complex 1 (with folic acid)) gabapentin 300 mg capsule 300 mg PO BID 11/13/24 11/13/24 11/13/24 History insulin glargine 100 unit/mL 10 unit subcut BEDTIME 11/13/24 11/13/24 11/13/24 History subcutaneous solution (Lantus U-100 Insulin) <Inna Simms DNP - Last Filed: 11/13/24 17:12> Physical Exam Vital Signs and Narrative: Vital Signs: Last Vital Signs Temp 99.1 F 11/13/24 14:10 Pulse 76 11/13/24 14:41 Resp 19 11/13/24 14:41 BP 124/76 11/13/24 14:41 Pulse Ox 96 11/13/24 14:41 O2 Del Method Room Air 11/13/24 14:41 BMI result Body Mass Index 26.2 <Inna Simms DNP - Last Filed: 11/13/24 17:12> Alert and oriented X3, able to give good history. Speech slightly slurred. Neuro: CN II-X11 intact, no deficits, visual acuity intact EYES: PERRLA, EOM intact ENT: hearing intact, uvula midline, lips moist, nares patent no epistaxis Cardiac: S1 S2 RRR, no murmur, no JVD, no edema in Lower ext Pulmonary: lungs clear to auscultation, No increased WOB. Abdominal: BS active in all 4 quadrants, no guarding, tenderness, rebounding, obesity MSK: Strength 5/5 upper and lower extremities : no CVA tenderness no bladder distension Extremities: no edema in lower extremities, PT and DP pulses palpable +2. Dry eschar to left great toe, mild redness to toe, second toe mild redness, no warmth or open areas Psych: mood stable, answers appropriately Skin: Warm and dry, Intact <Inna Simms DNP - Last Filed: 11/13/24 17:12> Results Labs CBC and Chem 7: 11/13/24 13:16 11/13/24 13:16 <Inna Simms DNP - Last Filed: 11/13/24 17:12> Labs: Laboratory Results - last 24 hr 11/13/24 11/13/24 11/13/24 11:56 13:16 14:38 MCV 80.6 MCH 27.9 MCHC 34.6 RDW 15.5 Plt Count 300 MPV 9.1 L Immature Gran % (Auto) 0.3 Neut % (Auto) 59.2 Lymph % (Auto) 24.9 [place] % (Auto) 11.6 H Eos % (Auto) 3.0 Baso % (Auto) 1.0 Lymph # (Auto) 1.9 [place] # (Auto) 0.9 Eos # (Auto) 0.2 Baso # (Auto) 0.1 Abs Immat Gran (auto) 0.02 Absolute Neuts (auto) 4.6 Absolute Nucleated RBC 0.000 Nucleated RBC % (auto) 0.0 Anion Gap 13 Estim Creat Clear Calc 118.9 Estimated GFR > 60 Random Glucose 161 H Lactic Acid 3.2 H* Calcium 8.7 Total Bilirubin 0.3 AST 27 ALT 19 Alkaline Phosphatase 85 Ammonia 60 H Total Protein 6.6 Albumin 3.9 Urine Color Yellow Urine Appearance Clear Urine pH 7.5 Ur Specific [place] 1.010 Urine Protein Negative Urine Glucose (UA) 100 H Urine Ketones Negative Urine Blood Negative Urine Nitrite Negative Ur Leukocyte Esterase Negative Urine Opiates Screen Not Detected Ur Buprenorphine Scrn Not Detected Ur Oxycodone Screen Not Detected Urine Methadone Screen Not Detected Urine Fentanyl Screen Not Detected Ur Barbiturates Screen Not Detected Ur Phencyclidine Scrn Not Detected Ur Amphetamines Screen Not Detected U Benzodiazepines Scrn Not Detected Urine Cocaine Screen Not Detected U Marijuana (THC) Screen Not Detected Ethyl Alcohol 153 <Inna Simms DNP - Last Filed: 11/13/24 17:12> Imaging Radiologist's Impressions: Impressions Cervical Spine CT 05/08/25 12:57 IMPRESSION: Multilevel cervical spondylosis without acute fracture or trauma-related listhesis. Fleischner guidelines were followed. Electronically signed by: Que Hernandez MD 11/13/2024 02:24 PM EDT RP Head CT 11/13/24 13:38 IMPRESSION: Limited by patient's motion artifact demonstrating no acute intracranial hemorrhage or acute fracture in the bony calvarium. Electronically signed by: Que Hernandez MD 11/13/2024 02:13 PM EDT RP <Inna Simms DNP - Last Filed: 11/13/24 17:12> Assessment and Plan (1) Seizure disorder: Status: Acute <Inna Simms DNP - Last Filed: 11/13/24 17:12> (2) Acute encephalopathy: Status: Acute <Inna Simms DNP - Last Filed: 11/13/24 17:12> (3) Diabetic ulcer of toe: Qualifiers: Diabetes mellitus type: type 1 Laterality: left Non-pressure ulcer stage: unspecified non-pressure ulcer stage Qualified Code(s): E10.621 - Type 1 diabetes mellitus with foot ulcer; L97.529 - Non-pressure chronic ulcer of other part of left foot with unspecified severity <Inna Simms DNP - Last Filed: 11/13/24 17:12> Status: Acute <Inna Simms DNP - Last Filed: 11/13/24 17:12> 44-year-old male with PMH significant for alcohol use disorder with history of EtOH withdrawal and Wernicke's syndrome , T2 DM with recurrent DKA, HTN, seizure disorder presented today after being found on the floor at home with seizure activity. Seizure disorder, risk of alcohol withdrawal, metabolic encephalopathy.? Continue phenobarb protocol to prevent alcohol withdrawal seizure.? CIWA protocol Continue with thiamine/folic acid/MVI? for Wernicke's encephalopathy.? Pepcid BID Patient mental status is likely secondary to metabolic encephalopathy/Post Ictal state Seizure precautions Continue Home seizure medications Acute Lactic acidosis Likely related to post ictal state, not due to sepsis No leukocytosis. no fever, No tachycardia. No SIRS criteria Currently on ABT Hyperammonemia Ammonia level 60 Lactulose 10gm times one Repeat in am Type 1 DM POC glucose and SS Glargine 5U at hs Left great toe osteomyelitis Vascular to follow ID consult Continue Daptomycin 620 mgs daily until 12/03/2024 Right upper Arm PICC in place. Alcohol use disorder Consult addiction medicine HTN Continue Home medications when medication rec complete Blood pressure stable FULL CODE Verified with patient Attending Dr Mariano Ewing Patient will require 2 day stay for treatment of acute ETOH withdrawal with breakthrough seizures requiring phenobarbitol protocol and monitoring of cardiac and neurological status. <Inna Simms DNP - Last Filed: 11/13/24 17:12> -year-old male with PMH significant for alcohol use disorder with history of EtOH withdrawal and Wernicke's syndrome , T2 DM with recurrent DKA, HTN, seizure disorder presented today after being found on the floor at home with seizure activity. Seizure disorder, risk of alcohol withdrawal, metabolic encephalopathy.? Continue phenobarb protocol to prevent alcohol withdrawal seizure.? CIWA protocol Continue with thiamine/folic acid/MVI? for Wernicke's encephalopathy.? Pepcid BID Patient mental status is likely secondary to metabolic encephalopathy/Post Ictal state Seizure precautions Continue Home seizure medications Acute Lactic acidosis Likely related to post ictal state, not due to sepsis No leukocytosis. no fever, No tachycardia. No SIRS criteria Currently on ABT Hyperammonemia Ammonia level 60 Lactulose 10gm times one Repeat in am Type 1 DM POC glucose and SS Glargine 5U at hs Left great toe osteomyelitis Vascular to follow ID consult Continue Daptomycin 620 mgs daily until 12/03/2024 Right upper Arm PICC in place. Alcohol use disorder Consult addiction medicine HTN Continue Home medications when medication rec complete Blood pressure stable FULL CODE Verified with patient Attending Dr Mariano Ewing Patient will require 2 day stay for treatment of acute ETOH withdrawal with breakthrough seizures requiring phenobarbitol protocol and monitoring of cardiac and neurological status. <Len Quintana MD - Last Filed: 11/13/24 17:31> Quality Stroke Does the patient have a stroke diagnosis?: No <Inna Simms DNP - Last Filed: 11/13/24 17:12> VTE Prior VTE?: No <Inna Simms DNP - Last Filed: 11/13/24 17:12> VTE Risk Level:: Medical - moderate - high <Inna Simms DNP - Last Filed: 11/13/24 17:12> VTE Device Contraindication: Treatment Not Indicated <Inna Simms DNP - Last Filed: 11/13/24 17:12> VTE Drug Contraindication: N/A - Med Ordered <Inna Simms DNP - Last Filed: 11/13/24 17:12>
[2024-11-13 15:21] LABS: Reflex Lactate? Lactic Acid Added
[2024-11-13] MEDS: Thiamine HCL 100 MG in 0.9 % Sodium Chloride 100 ML 202 MG IV (15:27)
--- NOTE | 2024-11-13 15:40 | MHC.EDTECH ---
Patient is a wake now
[2024-11-13 16:09] LABS: Glucose, Whole Blood 156 mg/dL (60-115)
[2024-11-13] MEDS: Enoxaparin Sodium 40 MG/0.4 ML SYRINGE SUBCUT (16:37)
[2024-11-13] MEDS: Lactulose 20 GM/30 ML SOLUTION 10 GM PO (16:37)
[2024-11-13] MEDS: 0.9 % Sodium Chloride Flush 3 ML SYRINGE IVFLUSH ×2 (16:40→21:45)
[2024-11-13 16:47] LABS: Cancel Lactic Acid Canceled
--- NOTE | 2024-11-13 16:53 | P.CONGS_ITS ---
History of Present Illness Consult details Consult date: 11/13/24 Reason for consult: wound care (Nonhealing left great toe ulcer) Narrative: 44-year-old gentleman well known to us for prior admission regarding nonhealing ulcer. He has a prior history of seizures. Most likely secondary to alcohol withdrawal. He reports chronic use and was actually seen at [facility] prior to this. On his prior admission he had received a right upper extremity PICC line through which he is receiving IV daptomycin. He has been readmitted for mental status changes. He now presents to us for vascular follow-up. Review of Systems 2 Review of Systems: Yes all other systems are reviewed and are negative Constitutional: Constitutional: Reports no additional constitutional complaints ENT: Reports Normal hearing present Cardiovascular: Cardiovascular: Denies chest pain, Denies chest pain at rest, Denies chest pain with activity and Denies pedal edema Respiratory: Respiratory: Denies cough Gastrointestinal: Gastrointestinal: Denies abdominal pain Musculoskeletal: Musculoskeletal: Denies abnormal gait, Denies muscle cramps and Denies radiating pain into limb Integumentary/Breasts: Skin/Breast: Denies skin ulcer and Denies wounds Neurologic: Reports Normal hearing present and Denies abnormal gait Psychiatric: Psychiatric: Reports no additional psychiatric complaints PMFSH Past Medical History Medical History Type 1 diabetes Wernicke encephalopathy Alcohol withdrawal seizure Type 1 diabetes Alcohol dependence Seizure disorder HTN (hypertension) Social History Social History Household Members: Family Housing: Unknown / Unable to assess Alcohol intake: current Alcohol intake frequency: 3 or more drinks per day Patient Tobacco Use Status: Tobacco use Unknown Smoked in Last 30 Days: Yes Substance Use Type: Marijuana Advance Directives: No Advance Directives Information Provided: Yes service: No Meds Allergies Allergy/AdvReac Type Severity Reaction Status Date / Time chlordiazepoxide Allergy Unknown Nausea Verified 11/13/24 12:56 [From Librium] Penicillins Allergy Unknown Unknown Verified 11/13/24 12:56 levetiracetam [From Keppra] AdvReac Severe agitation Verified 11/13/24 12:56 Active Medications: Current Medications Acetaminophen (Acetaminophen 325 Mg Tablet) 650 mg PO Q6H PRN PRN Reason: Pain, Mild 1-3,fever,headache Acetaminophen (Acetaminophen Supp 650 Mg Supp.Rect) 650 mg NM Q6H PRN PRN Reason: Pain, Mild 1-3,fever,headache Al Hydroxide/Mg Hydroxide (Magnesium Hydrox/Alum Hydrox 30 Ml Oral.Susp) 30 ml PO Q4H PRN PRN Reason: Heartburn Calcium Carbonate (Calcium Carbonate 750 Mg Tab.Chew) 750 mg PO Q4H PRN PRN Reason: Heartburn Enoxaparin Sodium (Enoxaparin Sodium 40 Mg/0.4 Ml Syringe) 40 mg SUBCUT Q24H [facility] Last Admin: 11/13/24 16:37 Dose: 40 mg Famotidine (Famotidine 20 Mg Tablet) 20 mg PO BID [facility] Folic Acid (Folic Acid 1 Mg Tablet) 1 mg PO DAILY [facility] Stop: 11/17/24 08:59 Insulin Glargine (Insulin Glargine,Hum.Rec.Anlog 100 Unit/Ml 10 Ml Vial) 5 unit SUBCUT BEDTIME [facility] Magnesium Hydroxide (Milk Of Magnesia 30 Ml Oral.Susp) 30 ml PO DAILY PRN PRN Reason: Constipation Melatonin (Melatonin 3 Mg Tablet) 6 mg PO BEDTIME PRN PRN Reason: Insomnia Multivitamins/Vitamin C (Multivitamin Tablet) 1 tab PO DAILY [facility] Stop: 11/17/24 08:59 Ondansetron HCl (Ondansetron Hcl 4 Mg/2 Ml Vial) 4 mg IVPUSH Q8H PRN PRN Reason: Nausea and Vomiting Pharmacy Consult (Consult Rx Etoh Phenob Im/Po) 1 each MISCELLANE ONCE PRN; Protocol PRN Reason: Consult order Phenobarbital (Phenobarbital 15 Mg Tablet) 45 mg PO BID [facility]; Protocol Stop: 11/15/24 21:01 Phenobarbital (Phenobarbital 15 Mg Tablet) 15 mg PO BID [facility]; Protocol Stop: 11/17/24 21:01 Phenobarbital (Phenobarbital 15 Mg Tablet) 15 mg PO DAILY [facility]; Protocol Stop: 11/19/24 09:01 Phenobarbital Sodium (Phenobarbital Sodium 130 Mg/Ml Vial Im Q3hx2) 219 mg IM Q3H [facility]; Protocol Stop: 11/13/24 21:01 Sodium Chloride (0.9 % Sodium Chloride Flush 3 Ml Syringe) 3 ml IVFLUSH QSHIFT [facility] Last Admin: 11/13/24 16:40 Dose: 3 ml Thiamine HCl (Thiamine Hcl 100 Mg Tablet) 100 mg PO DAILY [facility] Stop: 11/17/24 08:59 Home Medications ?Medication ?Instructions ?Recorded ?Confirmed ?Last Taken ?Type amlodipine 10 mg tablet 10 mg PO DAILY 10/18/24 11/13/24 11/13/24 History famotidine 20 mg tablet 20 mg PO DAILY PRN Heartburn 10/18/24 11/13/24 Unknown History ferrous gluconate 324 mg (38 mg 324 mg PO DAILY 10/18/24 11/13/24 11/13/24 History iron) tablet insulin lispro 100 unit/mL See Protocol subcut TIDAC 10/18/24 11/13/24 11/13/24 History subcutaneous cartridge (Humalog U-100 Insulin) lacosamide 200 mg tablet 200 mg PO BID 10/18/24 11/13/24 11/13/24 History lamotrigine 25 mg tablet 75 mg PO BID 10/18/24 11/13/24 11/13/24 History losartan 25 mg tablet 25 mg PO DAILY 10/18/24 11/13/24 11/13/24 History oxcarbazepine 600 mg tablet 600 mg PO BID 10/18/24 11/13/24 11/13/24 History vitamin B complex-folic acid 0.4 1 tab PO DAILY 10/18/24 11/13/24 11/13/24 History mg tablet (B Complex 1 (with folic acid)) gabapentin 300 mg capsule 300 mg PO BID 11/13/24 11/13/24 11/13/24 History insulin glargine 100 unit/mL 10 unit subcut BEDTIME 11/13/24 11/13/24 11/13/24 History subcutaneous solution (Lantus U-100 Insulin) Physical Exam 2 Vital Signs: Vital Signs: Last Vital Signs Temp 98.2 F 11/13/24 15:32 Pulse 75 11/13/24 15:32 Resp 20 11/13/24 15:32 BP 123/73 11/13/24 15:32 Pulse Ox 97 11/13/24 15:32 O2 Del Method Room Air 11/13/24 15:32 BMI result Body Mass Index 26.2 Const: General: cooperative, healthy appearing and comfortable O rientation/consciousness: oriented to person, oriented to place and oriented to time HEENT: Head: Yes normal to inspection Neck: Neck: Yes normal visual inspection Carotids: no bruits Chest: Chest palpation & inspection: normal inspection of the chest Resp: Effort & Inspection: normal respiratory effort and able to speak in complete sentences Auscultation: clear to auscultation bilaterally, no crackles, no rales, no rhonchi and no wheezes Cardio: Other: Palpable dorsalis pedis pulses and posterior tibial pulses Rate: regular rate Rhythm: regular rhythm Heart sounds: S1 normal heart sound present and S2 normal heart sound present Bruits: no carotid bruits Peripheral pulses: Peripheral pulses 2+ throughout GI: Inspection: Yes normal to inspection Skin: Other: Left great toe has a dry eschar a proximally 1 cm in diameter 2nd toe has a ulceration on the dorsum most likely secondary to his hammertoe. Wounds: no wounds Hair: normal Neuro: General: oriented to person, oriented to place and oriented to time Cranial nerves: Yes CN's II-XII intact bilaterally and Yes Normal hearing present Cognition (Neuro): normal cognition Motor exam (neuro): 5/5 motor strength present throughout Extrem: Other: venous exam: No significant superficial varicosities or spider telangiectasias, minimal edema General: No clubbing, No cyanosis and No edema Psych: Appearance: grossly normal Mental Status: mental status grossly normal Speech and movement: Normal speech and movement present Results Labs 11/13/24 13:16 11/13/24 13:16 Labs: Abnormal lab results 11/13/24 11/13/24 11/13/24 Range/Units 11:56 13:03 13:16 RBC 4.59 L (4.60-5.80) X10*6/uL Hgb 12.8 L (14.0-18.0) g/dl Hct 37.0 L (42.0-52.0) % MPV 9.1 L (9.4-12.4) fL [place] % (Auto) 11.6 H (2-11) % BUN 8 L (9-16) mg/dL POC Glucose 156 H (60-115) mg/dL Random Glucose 161 H (60-115) mg/dL Lactic Acid 3.2 H* (0.5-2.0) mmol/L Lactic Acid F/U @ 2Hr (0.5-2.0) mmol/L Ammonia 60 H (13-55) umol/L Urine Glucose (UA) 100 H (Negative) mg/dL 11/13/24 Range/Units 15:42 RBC (4.60-5.80) X10*6/uL Hgb (14.0-18.0) g/dl Hct (42.0-52.0) % MPV (9.4-12.4) fL [place] % (Auto) (2-11) % BUN (9-16) mg/dL POC Glucose (60-115) mg/dL Random Glucose (60-115) mg/dL Lactic Acid (0.5-2.0) mmol/L Lactic Acid F/U @ 2Hr 3.0 H* (0.5-2.0) mmol/L Ammonia (13-55) umol/L Urine Glucose (UA) (Negative) mg/dL Short CBC 11/13/24 Range/Units 13:16 WBC 7.7 (4.8-10.8) X10*3/uL Hgb 12.8 L (14.0-18.0) g/dl Hct 37.0 L (42.0-52.0) % Plt Count 300 (160-400) X10*3/uL BMP 11/13/24 13:16 Sodium 136 Potassium 4.0 Chloride 100 Carbon Dioxide 27 BUN 8 L Creatinine 0.81 Calcium 8.7 Liver Function 11/13/24 Range/Units 13:16 Total Bilirubin 0.3 (0.0-1.0) mg/dL AST 27 (5-37) U/L ALT 19 (0-40) U/L Alkaline Phosphatase 85 (39-117) U/L Albumin 3.9 (3.5-5.0) g/dL Urine 11/13/24 Range/Units 11:56 Urine Color Yellow Urine Appearance Clear Urine pH 7.5 (5.0-9.0) Ur Specific [place] 1.010 (1.005-1.025) Urine Protein Negative (Neg-Trace) mg/dL Urine Glucose (UA) 100 H (Negative) mg/dL All other labs normal. Assessment and Plan (1) Dry gangrene: Status: Acute Plan In short patient has left great toe gangrene which is dry at the tip of the left 1st toe. Would continue with IV antibiotics. Await him stabilization medically. Continue treatment for the underlying osteomyelitis. We will continue to monitor his status with you. Thank you for allowing us to assist in his care. If there are any questions or concerns please do not hesitate to contact us. Procedures Date of Service Date of Service: 11/13/24
--- NOTE | 2024-11-13 16:54 | PHA.MEDREC ---
Addendum entered by Manpreet Gill RP 11/13/24 17:54: MED REC CHECKED BY [facility] Original Note: Pharmacy Consult ? Medication Reconciliation Pharmacy has completed the medication reconciliation. Spoke with patient and he was able to confirm his medications. Patient confirmed he was discharged here 10/23 on a Daptomycin IV regimen for 6 weeks, looking in the DC packet 10/23 the end date for Daptomycin is scheduled for 12/03. He wasn't familiar if he was still taking Losartan 25mg tabs or not; looking in claims that was last filled 08/25 for 90 days and it was on the DC packet from 10/23. Patient confirmed his Lantus and confirmed he injects 10 units at bedtime.
[2024-11-13] MEDS: PHENobarbitaL sodium 130 MG/ML VIAL IM Q3Hx2 219 MG IM ×2 (18:43→21:45)
[2024-11-13 18:50] LABS: Glucose, Whole Blood 251 mg/dL (60-115)
[2024-11-13 20:58] LABS: Glucose, Whole Blood 318 mg/dL (60-115)
[2024-11-13] MEDS: Gabapentin 300 MG CAPSULE PO (21:44)
[2024-11-13] MEDS: DAPTOmycin 620 MG in 0.9 % Sodium Chloride 50 ML 100 MG IV (21:44)
[2024-11-13] MEDS: Lacosamide 100 MG TABLET 200 MG PO (21:44)
[2024-11-13] MEDS: Insulin Glargine,Hum.rec.anlog 100 UNIT/ML 10 ML VIAL SUBCUT (21:44)
[2024-11-13] MEDS: Famotidine 20 MG TABLET PO (21:44)
[2024-11-13] MEDS: OXcarbazepine 300 MG TABLET 600 MG PO (21:44)
[2024-11-13] MEDS: Insulin Lispro 100 UNIT/ML 3 ML VIAL SUBCUT (21:44)
[2024-11-13] MEDS: lamoTRIgine 25 MG TABLET 75 MG PO (22:03)
[2024-11-14] VITALS: BP 130/71; PULSE 69; RESP 16; TEMP 36.4; O2SAT 98
[2024-11-14 03:25] VITALS: BP 99/68; PULSE 60; RESP 16; TEMP 36.1; O2SAT 97
[2024-11-14 07:39] LABS: Glucose, Whole Blood 193 mg/dL (60-115)
[2024-11-14 07:42] VITALS: BP 137/91; PULSE 60; RESP 17; TEMP 36.3; O2SAT 98
[2024-11-14] MEDS: OXcarbazepine 300 MG TABLET 600 MG PO (08:31)
[2024-11-14] MEDS: PHENobarbitaL 15 MG TABLET 45 MG PO (08:31)
[2024-11-14] MEDS: Acetaminophen 325 MG TABLET 650 MG PO (08:31)
[2024-11-14] MEDS: Folic Acid 1 MG TABLET PO (08:31)
[2024-11-14] MEDS: Famotidine 20 MG TABLET PO (08:31)
[2024-11-14] MEDS: Multivitamin TABLET 1 TAB PO (08:32)
[2024-11-14] MEDS: Gabapentin 300 MG CAPSULE PO (08:32)
[2024-11-14] MEDS: Losartan Potassium 25 MG TABLET PO (08:32)
[2024-11-14] MEDS: Lacosamide 100 MG TABLET 200 MG PO (08:32)
[2024-11-14] MEDS: amLODIPine Besylate 10 MG TABLET PO (08:32)
[2024-11-14] MEDS: Ferrous Sulfate 324 MG TABLET.DR PO (08:32)
[2024-11-14] MEDS: Thiamine HCL 100 MG TABLET PO (08:32)
[2024-11-14] MEDS: lamoTRIgine 25 MG TABLET 75 MG PO (08:32)
[2024-11-14] MEDS: 0.9 % Sodium Chloride Flush 3 ML SYRINGE IVFLUSH ×2 (08:33→17:25)
[2024-11-14] MEDS: Insulin Lispro 100 UNIT/ML 3 ML VIAL SUBCUT ×3 (08:33→17:25)
--- NOTE | 2024-11-14 09:20 | MHC.CM.PN ---
Patient from home s/p SZ. PMH ETOH w WD, LLE infect IV ABX @ Home [facility] in place He lives with other family members. He is independent with all functional mobility. He is on CIWA scale Phenobarb protocol DP home resume IV ABX infusion. Pt will arrange for a family member to provide transportation home.
[2024-11-14 09:37] LABS: MANUAL DIFF FLAG NO
[2024-11-14 09:41] LABS: Basophils Absolute Auto 0.1 X10*3/uL (0.0-0.2); Basophils Percent Auto 0.6 % (0-2); Eosinophils Absolute Auto 0.3 X10*3/uL (0.0-0.4); Eosinophils Percent Auto 3.7 % (0-4); Hematocrit 38.3 % (42.0-52.0); Hemoglobin 12.7 g/dl (14.0-18.0); Imm Gran Abs Auto 0.02 X10*3/uL (0.00-0.03); Imm Gran Pct Auto 0.2 % (0.0-0.4); Lymphocytes Absolute Auto 1.5 X10*3/uL (1.2-4.9); Lymphocytes Percent Auto 17.6 % (20-40); Mean Corpuscular HGB Conc 33.2 g/dl (31.0-36.0); Mean Corpuscular Hemoglobin 27.5 pg (27.0-33.0); Mean Corpuscular Volume 82.9 fL (80.0-98.0); Mean Platelet Volume 9.5 fL (9.4-12.4); Monocytes Absolute Auto 0.8 X10*3/uL (0.1-1.2); Neutrophils Absolute Auto 5.7 x10*3/uL (2.0-8.3); Neutrophils Percent Auto 68.9 % (45-73); Platelet Count 269 X10*3/uL (160-400); Red Blood Count 4.62 X10*6/uL (4.60-5.80); Red Cell Distribution Width 15.8 % (11.0-16.0); White Blood Count 8.3 X10*3/uL (4.8-10.8)
[2024-11-14 09:47] LABS: Ammonia 50 umol/L (13-55)
[2024-11-14 09:54] LABS: Anion Gap 11 (12-20); Blood Urea Nitrogen 10 mg/dL (9-16); Calcium 8.4 mg/dL (8.4-10.2); Carbon Dioxide 25 mmol/L (22-29); Chloride 99 mmol/L (96-108); Creatinine Clr Calc Pharmacy 110.7; Estimated Glomerular Filt Rate > 60; Glucose Random 344 mg/dL (60-115); Potassium 4.2 mmol/L (3.3-5.1); Sodium 131 mmol/L (135-145)
--- NOTE | 2024-11-14 10:55 | HO.ADDICTCON ---
History of Present Illness Date of Service: 11/14/2024 Chief Complaint: breakthrough seizure Reason for Consult: AUD Sources of Information: patient interviewed and chart reviewed HPI Narrative: Patient is a 44 year old male with history of DM, seizure disorder and alcohol use disorder Medically admitted following seizure at home Consult requested as patient reports ongoing alcohol use. Patient seen in room 461. He is awake, alert, pleasant and engaged in interview. He is know to this typewriter operator automatic via previous admission in October. He states that he continues to drink approx a 6 pack of beer daily, however prior to admission had drank a pint of vodka. 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 Discussed Recovery support centers, and patient interested in additional information related to this. Denies any withdrawal sx, and none observed when seen by t/w Has been receiving pheno taper AUDIT-C Brief Intervention This typewriter operator automatic met with patient to discuss current alcohol use and concerns related to increased risk of alcohol related problems. Discussed how alcohol use has impacted health, including negative impact on mental health and overall physical wellbeing. Discussed risk reduction strategies including drinking below the recommended limit. Review of Systems Constitutional: Reports as per HPI and Reports no additional constitutional complaints Gastrointestinal: Denies loose stools and Denies nausea Psychiatric: Reports anhedonia Diagnostics Vital Signs (24Hr): Vital Signs - 24 hr 11/13/24 12:51 11/13/24 13:20 11/13/24 14:10 Temperature 98.2 F 98.1 F 99.1 F Pulse Rate 89 86 79 Respiratory Rate 18 21 H 16 Blood Pressure 119/93 H 125/86 114/70 Pulse Oximetry 94 96 97 Oxygen Delivery Method Room Air Room Air Room Air 11/13/24 14:41 11/13/24 15:32 11/13/24 18:45 Temperature 98.2 F 98.4 F Pulse Rate 76 75 67 Respiratory Rate 19 20 13 Blood Pressure 124/76 123/73 111/69 Pulse Oximetry 96 97 98 Oxygen Delivery Method Room Air Room Air Room Air 11/13/24 19:01 11/14/24 00:00 11/14/24 03:25 Temperature 98.7 F 97.5 F 97.0 F Pulse Rate 73 69 60 Respiratory Rate 16 16 16 Blood Pressure 131/75 130/71 99/68 Pulse Oximetry 98 98 97 Oxygen Delivery Method Room Air Room Air Room Air 11/14/24 07:42 Temperature 97.4 F Pulse Rate 60 Respiratory Rate 17 Blood Pressure 137/91 H Pulse Oximetry 98 Oxygen Delivery Method Room Air BMI result Body Mass Index 23.8 Labs 11/14/24 09:30 11/14/24 09:30 Labs: Laboratory Results - last 48 hr 11/13/24 11/13/24 11/13/24 11:56 13:03 13:16 WBC 7.7 RBC 4.59 L Hgb 12.8 L Hct 37.0 L MCV 80.6 MCH 27.9 MCHC 34.6 RDW 15.5 Plt Count 300 MPV 9.1 L Immature Gran % (Auto) 0.3 Neut % (Auto) 59.2 Lymph % (Auto) 24.9 Cloud % (Auto) 11.6 H Eos % (Auto) 3.0 Baso % (Auto) 1.0 Lymph # (Auto) 1.9 Cloud # (Auto) 0.9 Eos # (Auto) 0.2 Baso # (Auto) 0.1 Abs Immat Gran (auto) 0.02 Absolute Neuts (auto) 4.6 Absolute Nucleated RBC 0.000 Nucleated RBC % (auto) 0.0 Sodium 136 Potassium 4.0 Chloride 100 Carbon Dioxide 27 Anion Gap 13 BUN 8 L Creatinine 0.81 Estim Creat Clear Calc 118.9 Estimated GFR > 60 POC Glucose 156 H Random Glucose 161 H Lactic Acid 3.2 H* Lactic Acid F/U @ 2Hr Calcium 8.7 Total Bilirubin 0.3 AST 27 ALT 19 Alkaline Phosphatase 85 Ammonia 60 H Total Protein 6.6 Albumin 3.9 Urine Color Yellow Urine Appearance Clear Urine pH 7.5 Ur Specific [place] 1.010 Urine Protein Negative Urine Glucose (UA) 100 H Urine Ketones Negative Urine Blood Negative Urine Nitrite Negative Ur Leukocyte Esterase Negative Urine Opiates Screen Ur Buprenorphine Scrn Ur Oxycodone Screen Urine Methadone Screen Urine Fentanyl Screen Ur Barbiturates Screen Ur Phencyclidine Scrn Ur Amphetamines Screen U Benzodiazepines Scrn Urine Cocaine Screen U Marijuana (THC) Screen Ethyl Alcohol 153 11/13/24 11/13/24 11/13/24 14:38 15:42 18:45 WBC RBC Hgb Hct MCV MCH MCHC RDW Plt Count MPV Immature Gran % (Auto) Neut % (Auto) Lymph % (Auto) Cloud % (Auto) Eos % (Auto) Baso % (Auto) Lymph # (Auto) Cloud # (Auto) Eos # (Auto) Baso # (Auto) Abs Immat Gran (auto) Absolute Neuts (auto) Absolute Nucleated RBC Nucleated RBC % (auto) Sodium Potassium Chloride Carbon Dioxide Anion Gap BUN Creatinine Estim Creat Clear Calc Estimated GFR POC Glucose 251 H Random Glucose Lactic Acid Lactic Acid F/U @ 2Hr 3.0 H* Calcium Total Bilirubin AST ALT Alkaline Phosphatase Ammonia Total Protein Albumin Urine Color Urine Appearance Urine pH Ur Specific [place] Urine Protein Urine Glucose (UA) Urine Ketones Urine Blood Urine Nitrite Ur Leukocyte Esterase Urine Opiates Screen Not Detected Ur Buprenorphine Scrn Not Detected Ur Oxycodone Screen Not Detected Urine Methadone Screen Not Detected Urine Fentanyl Screen Not Detected Ur Barbiturates Screen Not Detected Ur Phencyclidine Scrn Not Detected Ur Amphetamines Screen Not Detected U Benzodiazepines Scrn Not Detected Urine Cocaine Screen Not Detected U Marijuana (THC) Screen Not Detected Ethyl Alcohol 11/13/24 11/14/24 11/14/24 20:54 07:13 09:30 WBC 8.3 RBC 4.62 Hgb 12.7 L Hct 38.3 L MCV 82.9 MCH 27.5 MCHC 33.2 RDW 15.8 Plt Count 269 MPV 9.5 Immature Gran % (Auto) 0.2 Neut % (Auto) 68.9 Lymph % (Auto) 17.6 L Cloud % (Auto) 9.0 Eos % (Auto) 3.7 Baso % (Auto) 0.6 Lymph # (Auto) 1.5 Cloud # (Auto) 0.8 Eos # (Auto) 0.3 Baso # (Auto) 0.1 Abs Immat Gran (auto) 0.02 Absolute Neuts (auto) 5.7 Absolute Nucleated RBC 0.000 Nucleated RBC % (auto) 0.0 Sodium 131 L Potassium 4.2 Chloride 99 Carbon Dioxide 25 Anion Gap 11 L BUN 10 Creatinine 0.87 Estim Creat Clear Calc 110.7 Estimated GFR > 60 POC Glucose 318 H 193 H Random Glucose 344 H Lactic Acid Lactic Acid F/U @ 2Hr Calcium 8.4 Total Bilirubin AST ALT Alkaline Phosphatase Ammonia 50 Total Protein Albumin Urine Color Urine Appearance Urine pH Ur Specific [place] Urine Protein Urine Glucose (UA) Urine Ketones Urine Blood Urine Nitrite Ur Leukocyte Esterase Urine Opiates Screen Ur Buprenorphine Scrn Ur Oxycodone Screen Urine Methadone Screen Urine Fentanyl Screen Ur Barbiturates Screen Ur Phencyclidine Scrn Ur Amphetamines Screen U Benzodiazepines Scrn Urine Cocaine Screen U Marijuana (THC) Screen Ethyl Alcohol Imaging Radiology Impressions: ITS Impressions Cervical Spine CT 11/13/24 12:57 IMPRESSION: Multilevel cervical spondylosis without acute fracture or trauma-related listhesis. Fleischner guidelines were followed. Electronically signed by: Que Hernandez MD 11/13/2024 02:24 PM EDT RP Head CT 11/13/24 13:38 IMPRESSION: Limited by patient's motion artifact demonstrating no acute intracranial hemorrhage or acute fracture in the bony calvarium. Electronically signed by: Que Hernandez MD 11/13/2024 02:13 PM EDT RP Mental Status Exam Mental Status Exam Level of Consciousness: Awake, Appropriate and Alert Patient Behavior: Appropriate and Talkative Affect Description: Calm Speech Pattern: Slurred (but understandable (similar to last admission)) Thought Process: Intact Thought Content: positive for Intact and positive for [place] Medications Medications Current Medications Acetaminophen (Acetaminophen 325 Mg Tablet) 650 mg PO Q6H PRN PRN Reason: Pain, Mild 1-3,fever,headache Last Admin: 11/14/24 08:31 Dose: 650 mg Acetaminophen (Acetaminophen Supp 650 Mg Supp.Rect) 650 mg AR Q6H PRN PRN Reason: Pain, Mild 1-3,fever,headache Al Hydroxide/Mg Hydroxide (Magnesium Hydrox/Alum Hydrox 30 Ml Oral.Susp) 30 ml PO Q4H PRN PRN Reason: Heartburn Amlodipine Besylate (Amlodipine Besylate 10 Mg Tablet) 10 mg PO DAILY MAYUR; Protocol Last Admin: 11/14/24 08:32 Dose: 10 mg Calcium Carbonate (Calcium Carbonate 750 Mg Tab.Chew) 750 mg PO Q4H PRN PRN Reason: Heartburn Daptomycin (Daptomycin 350 Mg/7 Ml Vial) 620 mg IV Q24H MAYUR Dextrose (Dextrose 50 % 25 Gm/50 Ml Syringe) 25 gm IVPUSH Q15M PRN; Protocol PRN Reason: per Hypoglycemia Standing Ord. Enoxaparin Sodium (Enoxaparin Sodium 40 Mg/0.4 Ml Syringe) 40 mg SUBCUT Q24H MAYUR Last Admin: 11/13/24 16:37 Dose: 40 mg Famotidine (Famotidine 20 Mg Tablet) 20 mg PO BID [facility] Last Admin: 11/14/24 08:31 Dose: 20 mg Famotidine (Famotidine 20 Mg Tablet) 20 mg PO DAILY PRN PRN Reason: Heartburn Ferrous Sulfate (Ferrous Sulfate 324 Mg Tablet.) 324 mg PO DAILY [facility] Last Admin: 11/14/24 08:32 Dose: 324 mg Folic Acid (Folic Acid 1 Mg Tablet) 1 mg PO DAILY [facility] Stop: 11/17/24 08:59 Last Admin: 11/14/24 08:31 Dose: 1 mg Folic Acid (Folic Acid 1 Mg Tablet) 1 mg PO DAILY [facility] Last Admin: 11/14/24 08:33 Dose: Not Given Gabapentin (Gabapentin 300 Mg Capsule) 300 mg PO BID [facility] Last Admin: 11/14/24 08:32 Dose: 300 mg Glucose (Glucose Gel 15 Gm Gel..Gram.) 15 gm PO Q15M PRN; Protocol PRN Reason: per Hypoglycemia Standing Ord. Insulin Glargine (Insulin Glargine,Hum.Rec.Anlog 100 Unit/Ml 10 Ml Vial) 5 unit SUBCUT BEDTIME [facility] Last Admin: 11/13/24 21:44 Dose: 5 unit Insulin Human Lispro (Insulin Lispro 100 Unit/Ml 3 Ml Vial) 0 unit SUBCUT QIDACHS [facility]; Protocol Last Admin: 11/14/24 08:33 Dose: 2 unit Lacosamide (Lacosamide 100 Mg Tablet) 200 mg PO BID [facility] Last Admin: 11/14/24 08:32 Dose: 200 mg Lamotrigine (Lamotrigine 25 Mg Tablet) 75 mg PO BID [facility] Last Admin: 11/14/24 08:32 Dose: 75 mg Losartan Potassium (Losartan Potassium 25 Mg Tablet) 25 mg PO DAILY [facility]; Protocol Last Admin: 11/14/24 08:32 Dose: 25 mg Magnesium Hydroxide (Milk Of Magnesia 30 Ml Oral.Susp) 30 ml PO DAILY PRN PRN Reason: Constipation Melatonin (Melatonin 3 Mg Tablet) 6 mg PO BEDTIME PRN PRN Reason: Insomnia Multivitamins/Vitamin C (Multivitamin Tablet) 1 tab PO DAILY [facility] Stop: 11/17/24 08:59 Last Admin: 11/14/24 08:32 Dose: 1 tab Multivitamins/Vitamin C (Multivitamin Tablet) 1 tab PO DAILY [facility] Last Admin: 11/14/24 08:33 Dose: Not Given Ondansetron HCl (Ondansetron Hcl 4 Mg/2 Ml Vial) 4 mg IVPUSH Q8H PRN PRN Reason: Nausea and Vomiting Oxcarbazepine (Oxcarbazepine 300 Mg Tablet) 600 mg PO BID [facility] Last Admin: 11/14/24 08:31 Dose: 600 mg Pharmacy Consult (Consult Rx Etoh Phenob Im/Po) 1 each MISCELLANE ONCE PRN; Protocol PRN Reason: Consult order Phenobarbital (Phenobarbital 15 Mg Tablet) 45 mg PO BID [facility]; Protocol Stop: 11/15/24 21:01 Last Admin: 11/14/24 08:31 Dose: 45 mg Phenobarbital (Phenobarbital 15 Mg Tablet) 15 mg PO BID [facility]; Protocol Stop: 11/17/24 21:01 Phenobarbital (Phenobarbital 15 Mg Tablet) 15 mg PO DAILY [facility]; Protocol Stop: 11/19/24 09:01 Sodium Chloride (0.9 % Sodium Chloride Flush 3 Ml Syringe) 3 ml IVFLUSH QSHIFT [facility] Last Admin: 11/14/24 08:33 Dose: 3 ml Thiamine HCl (Thiamine Hcl 100 Mg Tablet) 100 mg PO DAILY [facility] Stop: 11/17/24 08:59 Last Admin: 11/14/24 08:32 Dose: 100 mg Thiamine HCl (Thiamine Hcl 100 Mg Tablet) 100 mg PO DAILY [facility] Last Admin: 11/14/24 08:33 Dose: Not Given Allergies Allergies Allergy/AdvReac Type Severity Reaction Status Date / Time chlordiazepoxide Allergy Unknown Nausea Verified 11/13/24 12:56 [From Librium] Penicillins Allergy Unknown Unknown Verified 11/13/24 12:56 levetiracetam [From Keppra] AdvReac Severe agitation Verified 11/13/24 12:56 Assessment & Plan Assessment & Plan (1) Alcohol use disorder: Status: Acute Code(s): F10.90 - Alcohol use, unspecified, uncomplicated Assessment and Plan: Withdrawal sx managed with phenno taper Per patient, Naltrexone injection scheduled for 11/17 at [facility] RN to follow up with additional recovery resources no follow up indicated at this time unless requested by patient Total time managing care of this patient today _35___ minutes. [facility] Past Medical History Medical History Type 1 diabetes Wernicke encephalopathy Alcohol withdrawal seizure Type 1 diabetes Alcohol dependence Seizure disorder HTN (hypertension) Social History Social History Household Members: Family Household Members Other:: 2 Housing: House Do you presently have visiting nurse or other home services: Yes ([facility]) Alcohol intake: current Alcohol intake frequency: 3 or more drinks per day Patient Tobacco Use Status: Current everyday Tobacco user Tobacco use type: Cigarette Cigarette Packs Per Day: 0.5 Cigarettes Per Day: 10.0 Years Smoked: 20 Second Hand Smoke Exposure: Yes Substance Use Type: Marijuana service: No
[2024-11-14 11:21] LABS: Glucose, Whole Blood 241 mg/dL (60-115)
--- NOTE | 2024-11-14 11:25 | HO.VASCPN ---
Subjective Subjective Date of Service: 11/14/24 Interval history: Henok is doing ok today. He states overall he feels better than yesterday. He denies any pain in the foot/toe, unless it is touched. He denies any shortness of breath, diff breathing, or CP today. He states his BG readings at home have been running from the 40s up to the 300s. He continues to drink 6 beers a day with Vodka. He states he has been trying to eat more well balanced low carb meals. He has no new concerns today. Physical Exam Vital Signs: Vital Signs: Last Vital Signs Temp 97.4 F 11/14/24 07:42 Pulse 60 11/14/24 07:42 Resp 17 11/14/24 07:42 BP 137/91 H 11/14/24 07:42 Pulse Ox 98 11/14/24 07:42 O2 Del Method Room Air 11/14/24 07:42 BMI result Body Mass Index 23.8 Const: General: comfortable and no acute distress Orientation/consciousness: patient oriented x3 HEENT: Ears: hearing grossly normal bilaterally Resp: Effort & Inspection: normal respiratory effort and able to speak in complete sentences Auscultation: clear to auscultation bilaterally Cardio: Rate: regular rate Rhythm: regular rhythm Heart sounds: S1 normal heart sound present and S2 normal heart sound present Bruits: no abdominal aortic bruits, no carotid bruits, no femoral bruits and no renal bruits GI: Palpation (GI): No Abdominal aortic bruit present Neuro: General: patient oriented x3 Cranial nerves: Yes CN's II-XII intact bilaterally Extrem: Other: Left foot: dressing just done, but easily slid to the side to see left great toe. Dry eschar noted below the left great toenail, painful when attempting to remove the dry eschar. No drainage or bleeding noted. Palpable DP pulse. Progress Note: A&P Assessment and plan (1) Diabetic ulcer of toe: Status: Acute Assessment and Plan: Henok remains stable from a vascular standpoint. We attempted to remove the dry eschar on the left great toe, but were unable to do so due to increased pain as well as the scabbing was very hard. We would continue with dressing changes daily with betadine paint and kerlix wrap. We recommend the pt follow up with us outpatient in 2w. We discussed the importance of BG control and healing wounds. 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 We discussed about increasing protein and vegetables in his diet. We will continue to monitor. If there are any questions or concerns, please do not hesitate to reach out to us. Time Spent With Patient Time: Total time managing care of this patient today ____ minutes. Procedures Date of Service Date of Service: 11/14/24 Quality Stroke Does the patient have a stroke diagnosis?: No VTE Prior VTE?: No VTE Risk Level:: Medical - moderate - high VTE Device Contraindication: Treatment Not Indicated VTE Drug Contraindication: N/A - Med Ordered
[2024-11-14 11:54] VITALS: BP 139/80; PULSE 69; RESP 17; TEMP 36.7; O2SAT 98
--- NOTE | 2024-11-14 15:02 | PM.DS ---
DS: Providers Provider Date of Service: 11/14/24 Date of admission: 11/13/24 14:42 Date of discharge: 11/14/24 Primary care physician: ARIN Dodson Consults: 11/13/24 15:31 Consult to Vascular Surgery Routine Consulting Provider: [facility] V[facility] Reason for consultation: Dry Gangrene, Diabetic foot ulcer Has provider been notified: Yes 11/13/24 15:32 Addiction Medicine Provider Routine Consulting Provider: Addiction [facility]ing Reason for consultation: ETOH 11/13/24 15:44 Consult to Infectious Diseases Routine Consulting Provider: [facility] Infectious Disease [facility] Reason for consultation: Osteomyelitis left great to on Dapto for six weeks ?compliance 11/13/24 19:08 Addiction Medicine Provider Routine Consulting Provider: Addiction [facility]ing Reason for consultation: ETOH use 11/14/24 10:29 Inpt - Recovery Team Routine Comment: Reason for consultation: MARCIAL/BH eval and peer recovery resources 11/14/24 12:31 Consult to Wound Care Routine Reason for consultation: Left great toe chronic wound Has provider been notified: Yes DS: Diagnosis Discharge Diagnosis (1) Alcohol use disorder: Status: Acute DS: Summary Hospital Course Hospital Course: Admission hpi Chief Complaint: Seizure, ETOH 44-year-old male with PMH significant for alcohol use disorder with history of EtOH withdrawal and Wernicke's syndrome , T2 DM with recurrent DKA, HTN, seizure disorder presented today with his brother for evaluation of possible seizure, patient admitted to drinking alcohol on a daily basis last drink was earlier this morning he drank vodka, as per brother reported this is his typical presentation of alcohol intoxication but today is little worse than usual. He had a similar presentation October 17, 2024 and was treated with phenobarbitol protocol and ETOH withdrawal resolved, he was also treated for Left great toe osteomyelitis and discharged on IV daptomycin 620 mgs for a total of 6 weeks ending 12/03/2024. Per patient last dose was at 2pm 11/12/2024. Today he presented to ED after he was found in on the floor by his brother with Mental status changes. Presented to ED in post ictal state, now more clear and able to provide history. He reports that he drank Vodka today. His head CT was WNL No leukocytosis, normocytic chronic anemia, Lactic acid 3.0, most likely related to post ictal state, patient is on IV ABT currently for known osteomyelitis. Ammonia level 60, 10 gram Lactulose ordered. Glucose on arrival 156 , Anion Gap 13. Electrolytes WNL. Urine negative, ETOH level 153, Tox screen negative. Patient reports that he has been taking his medications daily. hospital course: He presented with a breakthrough seizure in the setting of alcohol use. Initially, he was confused due to a post-ictal state, but later stated that he has been compliant with his medications. He was started on phenobarbital for alcohol withdrawal prophylaxis. He remained on his usual medications, has had no further seizures, and has shown no signs of alcohol withdrawal during his hospitalization. He was evaluated by the Recovery Team and provided with resources to support sobriety. He is to continue Daptomycin for previously diagnosed osteomyelitis, with therapy scheduled to complete on 12/03. He was also seen by Vascular Surgery and Infectious Disease, with no changes made to his existing care plan. advise to follow up with Neurologist next week Time Attestation Discharge Coordination Time (in mins): 40 Quality: Safe Use of Opioids Does Pt have an Active Cancer Diagnosis on the Problem List?: No Quality: Stroke Does the patient have a stroke diagnosis?: No Physical Exam Vital Signs: Vital Signs: Last Vital Signs Temp 98.1 F 11/14/24 11:54 Pulse 69 11/14/24 11:54 Resp 17 11/14/24 11:54 BP 139/80 11/14/24 11:54 Pulse Ox 98 11/14/24 11:54 O2 Del Method Room Air 11/14/24 11:54 BMI result Body Mass Index 23.8 DS: Data Data Completed and Pending Completed studies during hospitalization [Text1]: Procedures Detoxification Services for Substance Abuse Treatment (10/17/24) Insertion of Infusion Device into Superior Vena Cava, Percutaneous Approach (10/17/24) Ultrasonography of Superior Vena Cava, Guidance (10/17/24) Labs on day of discharge: Laboratory Results - last 24 hr 11/13/24 11/13/24 11/13/24 13:03 15:42 18:45 WBC RBC Hgb Hct MCV MCH MCHC RDW Plt Count MPV Immature Gran % (Auto) Neut % (Auto) Lymph % (Auto) Sampson % (Auto) Eos % (Auto) Baso % (Auto) Lymph # (Auto) Sampson # (Auto) Eos # (Auto) Baso # (Auto) Abs Immat Gran (auto) Absolute Neuts (auto) Absolute Nucleated RBC Nucleated RBC % (auto) Sodium Potassium Chloride Carbon Dioxide Anion Gap BUN Creatinine Estim Creat Clear Calc Estimated GFR POC Glucose 156 H 251 H Random Glucose Lactic Acid F/U @ 2Hr 3.0 H* Calcium Ammonia 11/13/24 11/14/24 11/14/24 20:54 07:13 09:30 WBC 8.3 RBC 4.62 Hgb 12.7 L Hct 38.3 L MCV 82.9 MCH 27.5 MCHC 33.2 RDW 15.8 Plt Count 269 MPV 9.5 Immature Gran % (Auto) 0.2 Neut % (Auto) 68.9 Lymph % (Auto) 17.6 L Sampson % (Auto) 9.0 Eos % (Auto) 3.7 Baso % (Auto) 0.6 Lymph # (Auto) 1.5 Sampson # (Auto) 0.8 Eos # (Auto) 0.3 Baso # (Auto) 0.1 Abs Immat Gran (auto) 0.02 Absolute Neuts (auto) 5.7 Absolute Nucleated RBC 0.000 Nucleated RBC % (auto) 0.0 Sodium 131 L Potassium 4.2 Chloride 99 Carbon Dioxide 25 Anion Gap 11 L BUN 10 Creatinine 0.87 Estim Creat Clear Calc 110.7 Estimated GFR > 60 POC Glucose 318 H 193 H Random Glucose 344 H Lactic Acid F/U @ 2Hr Calcium 8.4 Ammonia 50 11/14/24 11:17 WBC RBC Hgb Hct MCV MCH MCHC RDW Plt Count MPV Immature Gran % (Auto) Neut % (Auto) Lymph % (Auto) Sampson % (Auto) Eos % (Auto) Baso % (Auto) Lymph # (Auto) Sampson # (Auto) Eos # (Auto) Baso # (Auto) Abs Immat Gran (auto) Absolute Neuts (auto) Absolute Nucleated RBC Nucleated RBC % (auto) Sodium Potassium Chloride Carbon Dioxide Anion Gap BUN Creatinine Estim Creat Clear Calc Estimated GFR POC Glucose 241 H Random Glucose Lactic Acid F/U @ 2Hr Calcium Ammonia Discharge Plan Discharge Anticipated Discharge Date/Time: 11/14/24 17:16 Patient Disposition: Home, Self-Care Discharge Diagnosis: Breakthrough seizure, alcohol use disorder Referrals: Dolores Zayas FNP [Primary Care Provider] - 1 Week Discharge Medications: Continued amlodipine 10 mg tablet 10 mg PO DAILY losartan 25 mg tablet 25 mg PO DAILY oxcarbazepine 600 mg tablet 600 mg PO BID Humalog U-100 Insulin 100 unit/mL cartridge See Protocol subcut TIDA Protocol: Insulin Correction Scale Less than or equal to 110 ---- Give (units): 0 111 to 150 Give (units): 0 151 to 200 Give (units): 2 201 to 250 Give (units): 4 251 to 300 Give (units): 6 301 to 350 Give (units): 8 Greater than 350 Give (units): 10 Call MD if Blood Glucose > : 350 vitamin B complex-folic acid [B Complex 1 (with folic acid)] 0.4 mg tablet 1 tab PO DAILY ferrous gluconate 324 mg (38 mg iron) tablet 324 mg PO DAILY lacosamide 200 mg tablet 200 mg PO BID famotidine 20 mg Tablet 20 mg PO DAILY PRN (Reason: Heartburn) lamotrigine 25 mg tablet 75 mg PO BID folic acid 1 mg Tablet 1 mg PO DAILY Qty: 30 0RF daptomycin 350 mg Recon Soln 620 mg IV Q24H Qty: 1 0RF Rx Instructions: Daptomycin 620 mg IV daily for 6 weeks end date will be 12/03/24 thiamine HCl (vitamin B1) 100 mg tablet 100 mg PO DAILY Qty: 90 0RF gabapentin 300 mg capsule 300 mg PO BID insulin glargine [Lantus U-100 Insulin] 100 unit/mL solution 10 unit subcut BEDTIME Discharge Orders: Discharge Order (Routine); Ordered 11/14/24 Ordered By: Len Quintana Diet: Advance to usual diet Activity on Discharge: As tolerated Stand Alone Forms: Patient Portal Discharge page Print Language: Unable To Collect Care Plan Goals: recovery from breakthrough seizure and abstinence from alcohol Health Concerns: chronic alcohol dependency seizure disorder Plan of Treatment: continue taking all your medications as before follow up with your doctor in a week follow up with Neurologist as scheduled Do not drive, operating heavy machinery or swimming alone resume daptomycin as before Assessment: see Discharge Date/Time: 11/14/24 17:50
[2024-11-14 15:42] VITALS: BP 122/75; PULSE 62; RESP 18; TEMP 36.3; O2SAT 98
[2024-11-14 16:27] LABS: Glucose, Whole Blood 256 mg/dL (60-115)
[2024-11-14] MEDS: Enoxaparin Sodium 40 MG/0.4 ML SYRINGE SUBCUT (17:25)
[2024-11-16 20:18] LABS: Levetiracetam Keppra <2.0 mcg/mL (6.0-46.0)
== END 2024-11-14 17:50 | disposition home or self-care (01) | DRG 775 ==
LOC: HO.ED 14:45 → HO.EDOVER 14:53 → HO.IMC 16:52
PROVIDERS: Registered Nurse Emergency; Admitting Provider Nurse Practitioner Family; Emergency Provider Emergency Medicine; PCP Nurse Practitioner Family; Visit Provider Internal Medicine
DX: F10.229 Alcohol dependence with intoxication, unspecified (principal); G93.41 Metabolic encephalopathy; E10.69 Type 1 diabetes mellitus with other specified complication; E51.2 Wernicke's encephalopathy; E10.52 Type 1 diabetes mellitus with diabetic peripheral angiopathy with gangrene; R56.9 Unspecified convulsions; G40.909 Epilepsy, unspecified, not intractable, without status epilepticus; F17.210 Nicotine dependence, cigarettes, uncomplicated; M86.9 Osteomyelitis, unspecified; Y90.6 Blood alcohol level of 120-199 mg/100 ml; I10 Essential (primary) hypertension; Z71.6 Tobacco abuse counseling; Z79.899 Other long term (current) drug therapy
CPT/HCPCS: 36415; 70450; 72125; 80048; 80053; 80177; 80307; 81003; 82140; 82947; 83605; 85025; 93005; 99285; J0878; J1650; J1808; J2560; J3411; J7120; S9485

== ENCOUNTER → 2024-11-13 12:57 | Outpatient (BNV) | payer MEDICAID, SELFPAY | PROVIDERS: Admitting Provider Nurse Practitioner Family; Emergency Provider Emergency Medicine; PCP Nurse Practitioner Family; Visit Provider Internal Medicine | DX: R41.82 Altered mental status, unspecified (principal) | CPT/HCPCS: 93010 ==

== ENCOUNTER → 2024-11-13 12:57 | Outpatient (BNV) | payer MEDICAID, SELFPAY | PROVIDERS: Admitting Provider Nurse Practitioner Family; Emergency Provider Emergency Medicine; PCP Nurse Practitioner Family; Visit Provider Radiology Diagnostic Radiology | DX: M47.812 Spondylosis without myelopathy or radiculopathy, cervical region (principal); R47.81 Slurred speech | CPT/HCPCS: 70450; 72125 ==

== ENCOUNTER → 2024-11-13 14:42 | Outpatient (BNV) | payer OTHER, SELFPAY | PROVIDERS: Admitting Provider Nurse Practitioner Family; Emergency Provider Emergency Medicine; PCP Nurse Practitioner Family; Visit Provider Nurse Practitioner Psychiatric/Mental Health | DX: F10.90 Alcohol use, unspecified, uncomplicated (principal) | CPT/HCPCS: 99222 ==

== ENCOUNTER → 2024-11-13 14:42 | Outpatient (BNV) | payer MEDICAID, SELFPAY | PROVIDERS: Admitting Provider Nurse Practitioner Family; Emergency Provider Emergency Medicine; PCP Nurse Practitioner Family; Visit Provider Nurse Practitioner Family | DX: F10.90 Alcohol use, unspecified, uncomplicated (principal) | CPT/HCPCS: 99239 ==

== ENCOUNTER → 2024-11-13 14:42 | Outpatient (BNV) | payer MEDICAID, SELFPAY | PROVIDERS: Admitting Provider Nurse Practitioner Family; Emergency Provider Emergency Medicine; PCP Nurse Practitioner Family; Visit Provider Surgery Vascular Surgery | DX: I96 Gangrene, not elsewhere classified (principal) | CPT/HCPCS: 99222 ==